=== PATIENT | male | born 1940 | race Caucasian/White ===

== ENCOUNTER → 2017-05-24 | Outpatient (POV) | LOC: OUTPT 00:01 | PROVIDERS: ATTEND Otolaryngology | DX: H91.90 Unspecified hearing loss, unspecified ear (principal) ==

== ENCOUNTER 2018-02-18 20:42 | Emergency (ER) ==
[2018-02-18 20:56] VITALS: BP 94/57; TEMP 98; BMI 23.7
--- NOTE | 2018-02-18 21:33 | CT ---
EXAM: CT of the lumbar spine without contrast. HISTORY: Fall. Low back pain. PROCEDURE: Contiguous axial CT images of the lumbar spine without contrast with coronal and sagittal reformats. FINDINGS: There is normal alignment of the lumbar vertebral bodies and facets. The vertebral body he ights are maintained. There is multilevel disc space narrowing. There is multilevel vacuum disc phe nomenon. There are posterior osteophytes at multiple levels of the lumbar spine resulting in multile cale neural foraminal narrowing. There is multilevel facet arthropathy. There is sacralization of th e left L5 transverse process. Impression: No evidence of fracture. Normal alignment of the lumbar spine with degenerative changes as described. Multilevel neural foraminal narrowing as described.
--- NOTE | 2018-02-18 21:34 | CT ---
EXAM: CT scan of the pelvis without contrast HISTORY: Patient fell, right hip pain TECHNIQUE: Helical imaging of the pelvis was performed without contrast. Axial images and coronal a nd sagittal reconstructions were provided for interpretation. FINDINGS: The femoral head are seen in normal position. The femoral neck appear intact. No acute a bnormalities are seen within the iliac wings. The pubic rami are intact. No acute fractures are see n within the sacrum. There is mild reticulation of the fat seen superficial to the right gluteus musculature seen on axial image number 45 and this may represent contusion injury to the muscle. There is mild swelling of the right gluteus musculature. IMPRESSION: No evidence of acute fracture dislocation seen within the pelvis.
[2018-02-18] MEDS ORDERED: NORCO 5-325 PO STA (21:40)
--- NOTE | 2018-02-18 21:43 | ED.PDOC ---
General ED Provider: Dr. GILL PHILLIPS-ER Chief Complaint: Hip Pain/Injury Stated Complaint: i slipped and fell on my hip Time Seen by Physician: 20:45 Mode of Arrival: Wheelchair Information Source: Patient, Family Exam Limitations: No limitations Primary Care Provider: MARYLOU CALLAHAN Nursing and Triage Documentation Reviewed and Agree: Yes Reviewed sepsis parameters & appropriate labs ordered?: Yes System Inflammatory Response Syndrome: Not Applicable Sepsis Protocol: For patient's 13 years and over: Temp is 96.8 and below OR 101 and greater Pulse >90 BPM Resp >20/minute Acutely Altered Mental Status Are patient's symptoms suggestive of a new infection, such as: -Pneumonia -Skin, Soft Tissue -Endocarditis -UTI -Bone, Joint Infection -Implantable Device -Acute Abdominal Infection -Wound Infection -Meningitis -Blood Stream Catheter Infection -Unknown Musculoskeletal Complaint Exam - Hip/Pelvis Complaint/Exam Location of Pain: Reports: Right, Hip Mechanism of Injury: Reports: Trauma Onset/Duration: today Symptoms Are: Still present Initial Severity: Mild Current Severity: Mild Location: Reports: Discrete Character: Reports: Dull, Aching Aggravating: Reports: Movement, Weight bearing Alleviating: Reports: None Associated Signs and Symptoms: Denies: Swelling, Redness, Bruising, Fever, Weakness, Dizziness, Syncope, Abdominal pain, Knee pain Able to Bear Weight: Yes Pelvis Palpation: Stable Tenderness: Present: Right Range of Motion Limited In: Absent: Flexion, Extension, Abduction, Adduction, Internal rotation, External rotation NV Bundle Intact Distal to Injury: Yes Differential Diagnoses: Contusion, Dislocation, Fracture, Sprain, Strain Review of Systems - Review Of Systems Constitutional: Reports: No symptoms Eyes: Reports: No symptoms Ears, Nose, Mouth, Throat: Reports: No symptoms Respiratory: Reports: No symptoms Cardiac: Reports: No symptoms GI: Reports: No symptoms : Reports: No symptoms Musculoskeletal: Reports: Joint pain, Muscle pain Skin: Reports: No symptoms Neurological: Reports: No symptoms Endocrine: Reports: No symptoms Hematologic/Lymphatic: Reports: No symptoms All Other Systems: Reviewed and Negative Past Medical History - Past Medical History Previously Healthy: Yes Endocrine: Reports: Unknown Cardiovascular: Reports: Unknown Respiratory: Reports: Unknown Hematological: Reports: Unknown Gastrointestinal: Reports: Unknown Genitourinary: Reports: Unknown Neuro/Psych: Reports: Unknown Musculoskeletal: Reports: Unknown Cancer: Reports: Unknown - Surgical History General Surgical History: Reports: Unknown - Family History Family History: Reports: Unknown - Social History Smoking Status: Never smoker Hx Substance Use: No Alcohol Screening: Occasionally - Immunizations Tetanus Shot up to Date: Yes Physical Exam - Physical Exam Appearance: Well-appearing, No pain distress, Well-nourished Pain Distress: Mild Eyes: MARLIN, EOMI, Conjunctiva clear ENT: Ears normal, Nose normal, Oropharynx normal Neck: Supple Respiratory: Airway patent, Breath sounds clear, Breath sounds equal, Respirations nonlabored Cardiovascular: RRR, Pulses normal, No rub, No murmur GI/: Soft, Nontender, No masses, Bowel sounds normal, No Organomegaly Musculoskeletal: Limited ROM Skin: Warm, Dry, Normal color Neurological: Sensation intact, Motor intact, Reflexes intact, Cranial nerves intact, Alert, Oriented Psychiatric: Affect appropriate, Mood appropriate Interpretation - Radiology Interpretation Radiology Interpretation By: Radiologist Radiology Results: Negative Exam Interpreted: CT Scan Critical Care Note - Critical Care Note Total Time (mins): 0 Course - Course Orders, Labs, Meds: Orders Category Date Time Status Hydrocodone Bit/Acetaminophen [Kinsey 5-325] MEDS 02/18/18 21:40 Stat 1 tab PO ONCE STA CT LUMBAR SPINE W/O CONTRAST Stat RADS 02/18/18 20:[address] PELVIS W/O CONTRAST Stat RADS 02/18/18 20:56 Completed Medications Generic Name Dose Route Start Last Admin Trade Name Freq PRN Reason Stop Dose Admin Hydrocodone Bitart/Acetaminophen 1 tab 02/18/18 21:40 Kinsey 5-325 PO 02/18/18 21:41 ONCE STA Vital Signs: Temp Pulse Resp BP Pulse Ox 02/18/18 20:43 98 F 79 18 94/57 L 98 Departure - Departure Time of Disposition: 21:43 Disposition: HOME SELF-CARE Discharge Problem: Hip pain Instructions: Hip Sprain (ED) Condition: Good Pt referred to PMD for follow-up: Yes IPMP verified?: No Additional Instructions: norco 5mg q 6hrs prn pain #10--f/u with dr jerrod cheema Allergies/Adverse Reactions: Allergies No Known Allergies Allergy (Verified 02/18/18 20:55) Home Medications: Ambulatory Orders Carvedilol 12.5 mg PO BID 04/18/13 Enalapril/Hydrochlorothiazide [Enalapril-Hctz 5-12.5 mg Tab] 0.5 tab PO DAILY Finasteride [Proscar] 5 mg PO DAILY 04/18/13 Spironolactone 25 mg PO 3XW 04/18/13 Tamsulosin HCl [Flomax] 0.4 mg PO QPM 04/18/13 Escitalopram Oxalate 10 mg PO BID 02/18/18 Disposition Discussed With: Patient, Family
== END 2018-02-18 22:14 | disposition home or self-care (01) ==
LOC: ED 20:42
DX: M25.551 Pain in right hip (principal); W01.0XXA Fall on same level from slipping, tripping and stumbling without subsequent striking against object, initial encounter
CPT/HCPCS: 99282

== ENCOUNTER 2018-06-01 06:52 | Outpatient (CLI) | payer OTHER | END 2018-06-01 06:53 | disposition home or self-care (01) | LOC: CAR 06:52 | PROVIDERS: ATTEND Internal Medicine | DX: R06.02 Shortness of breath (principal); I42.9 Cardiomyopathy, unspecified | CPT/HCPCS: 93005; 93010 ==

== ENCOUNTER 2023-05-01 05:41 | Inpatient (IN) ==
[2023-05-01] MEDS ORDERED: LASIX IVP ONE (05:52)
--- NOTE | 2023-05-01 06:34 | ED.PDOC ---
General <KRISTINE ANDERSON MD - Last Filed: 05/02/23 07:00> ED Provider: Dr. KRISTINE ANDERSON MD Chief Complaint: Shortness of Air Stated Complaint: shortness of breath Time Seen by Provider: 05/01/23 05:51 Mode of Arrival: Ambulance Information Source: Patient, Residential and EMT Exam Limitations: No limitations Primary Care Provider: MARYLOU MACDONALD MD Nursing and Triage Documentation Reviewed and Agree: Yes Does patient meet sepsis criteria?: No System Inflammatory Response Syndrome: Not Applicable Sepsis Protocol: For patient's 13 years and over: Temp is 96.8 and below OR 101 and greater Pulse >90 BPM Resp >20/minute Acutely Altered Mental Status Are patient's symptoms suggestive of a new infection, such as: -Pneumonia -Skin, Soft Tissue -Endocarditis -UTI -Bone, Joint Infection -Implantable Device -Acute Abdominal Infection -Wound Infection -Meningitis -Blood Stream Catheter Infection -Unknown Respiratory Complaint Exam <KRISTINE ANDERSON MD - Last Filed: 05/02/23 07:00> Shortness of Air Complaint/Exam Onset/Duration: ~1 hour Symptoms Are: Worse Timing: Constant Initial Severity: Moderate Current Severity: Moderate Character: Reports Dyspnea at rest Aggravating: Reports None Alleviating: Reports None Associated Signs and Symptoms: Reports Labored breathing; Denies Cough, Wheezing, Chest pain with cough, Chest pain, Fever, Chills, Diaphoresis, Nasal congestion, Dizziness, Calf pain, Calf swelling, Edema, Rapid breathing or Decreased intake Related History: Reports Similar episode History of Healthcare-Acquired Pneumonia: Lives at shelter Pulmonary Embolism Risk Factors: Reports None Cardiac Risk Factors: Reports None Pseudomonas Risk Factors: Reports None Tuberculosis Risk Factors: Reports Communal living Home Oxygen Use: No Respiratory Distress: Mild Stridor Present: No Tracheal Deviation: No Subcutaneous Emphysema: No Accessory Muscle Use: No Retractions: Not Present Diminished Breath Sounds: No Prolonged Expiratory Phase: No Unable to Speak Full Sentences: No Fatigue: Yes (mild) Leg Swelling: Yes (minimal) Grunting Respirations: No Differential Diagnoses: CHF, Pulmonary Edema, CA, Unstable Angina, Pneumonia, Pneumothorax, SARS, Bronchiolitis, RSV, Bronchospasm, Laryngospasm, Mycoplasma and URI Review of Systems <KRISTINE ANDERSON MD - Last Filed: 05/02/23 07:00> Review Of Systems Constitutional: Reports No symptoms Respiratory: Reports Shortness of Breath All Other Systems: Reviewed and Negative PFSH <KRISTINE ANDERSON MD - Last Filed: 05/02/23 07:00> Medical History (Updated 05/01/23 @ 14:02 by TORY MARIO) Atrial fibrillation I48.91 - Unspecified atrial fibrillation (ICD-10) Cataract H26.9 - Unspecified cataract (ICD-10) CKD (chronic kidney disease) stage 3, GFR 30-59 ml/min N18.30 - Chronic kidney disease, stage 3 unspecified (ICD-10) COPD (chronic obstructive pulmonary disease) J44.9 - Chronic obstructive pulmonary disease, unspecified (ICD-10) Dilated cardiomyopathy I42.0 - Dilated cardiomyopathy (ICD-10) Gait abnormality R26.9 - Unspecified abnormalities of gait and mobility (ICD-10) GERD (gastroesophageal reflux disease) K21.9 - Gastro-esophageal reflux disease without esophagitis (ICD-10) Hearing problem H91.90 - Unspecified hearing loss, unspecified ear (ICD-10) Heartburn R12 - Heartburn (ICD-10) Hyperlipidemia E78.5 - Hyperlipidemia, unspecified (ICD-10) Impairment of balance R26.89 - Other abnormalities of gait and mobility (ICD-10) 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 - Unspecified sequelae of unspecified cerebrovascular disease (ICD- 10) Pacemaker Z95.0 - Presence of cardiac pacemaker (ICD-10) Parkinson disease G20 - Parkinson's disease (ICD-10) Presence of Watchman left atrial appendage closure device Z95.818 - Presence of other cardiac implants and grafts (ICD-10) Sensorineural hearing loss (SNHL) H90.5 - Unspecified sensorineural hearing loss (ICD-10) Family History Mother Depression Cardiac disease FATHER Cancer Social History Smoking and tobacco status: Never smoker Passive smoking exposure: No Second hand smoke exposure: No Alcohol intake: current Alcohol intake frequency: holidays/special occasions only Alcohol type: beer Substance use type: does not use Special hazel needs: No Agree to transfusion: Yes Adopted: No Caregiver/support person: No Foster care: No Household members: spouse Housing: house Marital status: M Lives independently: Yes Daycare: no daycare Number of children: 4 Financial difficulty paying for basics: not very hard skilled nursing: No Current occupational status: retired History of recent travel: No Current gender identity: male Seatbelt use: always Helmet use: No Drives intoxicated or rides with intoxicated 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 Water heater temperature set < 120 degrees: Yes Working smoke detector in home: Yes Fire extinguisher in home: Yes Carbon monoxide detector in home: Yes Physical Exam <KRISTINE ANDERSON MD - Last Filed: 05/02/23 07:00> Physical Exam Appearance: Reports Ill-appearing and Obese Ill-appearing: Moderate Pain Distress: Moderate (Nursing staff was having difficulty placing Saha when I interviewed patient.) Eyes: Reports MARLIN, EOMI and Conjunctiva clear ENT: Reports Ears normal and Nose normal Neck: Nonsupple (normal age-appropriate external appearance) Respiratory: Reports Airway patent and Breath sounds equal Cardiovascular: Reports RRR GI/: Reports Soft, Nontender and Bowel sounds normal Musculoskeletal: Reports Other (unable to assess) Skin: Reports Warm, Dry and Normal color Neurological: Reports Sensation intact, Motor intact, Cranial nerves intact, Alert and Other (unable to assess mental status) Psychiatric: Reports Affect appropriate and Anxious <ROSANGELA MIRZA DO - Last Filed: 05/01/23 11:59> EKG Interpretation EKG Interpretation By: ED Physician Time of EKG #1: 07:00 Rate: Normal Rhythm: Other (afib) Interpretation: afib, RVH, qt prolonged form nonspecific interventricular delayy, no stemi Radiology Interpretation Radiology Interpretation By: ED Physician Radiology Results: Positive Exam Interpreted: CXR Xray Comments: cephalization, small left pleural effuiosn, no pneumothorax Critical Care Note <KRISTINE ANDERSON MD - Last Filed: 05/02/23 07:00> Critical Care Note Total Critical Care Time (mins): 0 Course <KRISTINE ANDERSON MD - Last Filed: 05/02/23 07:00> Course 05/02/23 04:57 05/02/23 04:57 Orders, Labs, Meds: Lab Review 05/01/23 05/01/23 05/01/23 05:56 06:31 06:37 WBC 11.93 H RBC 3.61 L Hgb 10.5 L Hct 33.1 L MCV 91.7 MCH 29.1 MCHC 31.7 L RDW Coeff of Ade 14.0 Plt Count 391 Immature Gran % (Auto) 0.7 Neut % (Auto) 83.6 H Lymph % (Auto) 8.6 L [place] % (Auto) 6.5 Eos % (Auto) 0.3 Baso % (Auto) 0.3 Neut # (Auto) 10.0 H Lymph # (Auto) 1.0 [place] # (Auto) 0.8 Eos # (Auto) 0.0 Baso # (Auto) 0.0 Immature Gran # (Auto) 0.1 Puncture Site Lb Base Excess 3.7 H O2 Saturation 98.4 H ABG pH 7.57 H* ABG pCO2 28.0 L ABG pO2 97.0 ABG HCO3 25.7 ABG Total CO2 26.6 H Ja Test Pos Hemoglobin 1.2 Oxyhemoglobin 95.5 Carboxyhemoglobin 2.1 H Total Hemoglobin 10.8 L O2 Delivery Device Cannula Oxygen Liter Flow 2.00 Sodium 138.3 Potassium 3.26 L Chloride 107.5 H Carbon Dioxide 27.7 Anion Gap 6.36 BUN 15.7 Creatinine 1.23 H Estimated GFR (MDRD) 56.00 BUN/Creatinine Ratio 12.76 Glucose 125.0 H Lactic Acid 1.03 Calcium 8.31 L Magnesium 2.03 Total Bilirubin 0.70 AST 81.2 H ALT 82.4 H Alkaline Phosphatase 70.8 Total Creatine Kinase 162.3 CK-MB (CK-2) 2.760 H CK-MB (CK-2) % 1.7000 Troponin I 0.076 NT-Pro-B Natriuret Pep 59706 H Total Protein 6.33 Albumin 3.41 L Globulin 2.92 Albumin/Globulin Ratio 1.16 Procalcitonin < 0.05 TSH 4.210 Free T4 1.95 Urine Color Yellow Urine Clarity Clear Urine pH 5.5 Ur Specific [place] 1.025 Urine Protein 1+ H Urine Glucose (UA) Negative Urine Ketones 1+ H Urine Blood 2+ H Urine Nitrite Negative Urine Bilirubin Negative Urine Urobilinogen 1.0 H Ur Leukocyte Esterase Negative Urine Microscopic RBC 10-20 Urine Microscopic WBC 0-2 Ur Squamous Epith Cells Not present Ur Renal Epithelial Cell 0-2 Hyaline Casts 0-2 SARS CoV-2 RNA Rapid PEDRO 05/01/23 06:40 WBC RBC Hgb Hct MCV MCH MCHC RDW Coeff of Ade Plt Count Immature Gran % (Auto) Neut % (Auto) Lymph % (Auto) [place] % (Auto) Eos % (Auto) Baso % (Auto) Neut # (Auto) Lymph # (Auto) [place] # (Auto) Eos # (Auto) Baso # (Auto) Immature Gran # (Auto) Puncture Site Base Excess O2 Saturation ABG pH ABG pCO2 ABG pO2 ABG HCO3 ABG Total CO2 Ja Test Hemoglobin Oxyhemoglobin Carboxyhemoglobin Total Hemoglobin O2 Delivery Device Oxygen Liter Flow Sodium Potassium Chloride Carbon Dioxide Anion Gap BUN Creatinine Estimated GFR (MDRD) BUN/Creatinine Ratio Glucose Lactic Acid Calcium Magnesium Total Bilirubin AST ALT Alkaline Phosphatase Total Creatine Kinase CK-MB (CK-2) CK-MB (CK-2) % Troponin I NT-Pro-B Natriuret Pep Total Protein Albumin Globulin Albumin/Globulin Ratio Procalcitonin TSH Free T4 Urine Color Urine Clarity Urine pH Ur Specific [place] Urine Protein Urine Glucose (UA) Urine Ketones Urine Blood Urine Nitrite Urine Bilirubin Urine Urobilinogen Ur Leukocyte Esterase Urine Microscopic RBC Urine Microscopic WBC Ur Squamous Epith Cells Ur Renal Epithelial Cell Hyaline Casts SARS CoV-2 RNA Rapid PEDRO Negative Orders Category Date Time Status ABG DRAW REQUEST Stat CARDIO 05/01/23 05:51 Completed EKG-(ED ONLY) Stat CARDIO 05/01/23 05:53 Completed Saha [CATHETER INSERTION AND CARE] Q8HR CARE 05/01/23 05:51 Active REMINDER: Ask MD to d/c saha DAILY CARE 05/01/23 05:51 Active Saline Lock [ED IV/MEDIPORT/POWERPORT] .ONCE EMERGENCY 05/01/23 05:53 Active ABG COOX Stat LAB 05/01/23 05:56 Completed CBC W/ AUTO DIFF Stat LAB 05/01/23 06:37 Completed CK [CREATINE KINASE] Stat LAB 05/01/23 06:37 Completed COMPREHENSIVE METABOLIC PANEL Stat LAB 05/01/23 06:37 Completed COVID [SARS COV-2 RNA RAPID PEDRO] Stat LAB 05/01/23 06:40 Completed FREE T4 (FREE THYROXINE) Stat LAB 05/01/23 06:37 Completed LACTIC ACID Stat LAB 05/01/23 06:37 Completed MAGNESIUM Stat LAB 05/01/23 06:37 Completed PROBNP ED [NT-PROBNP(ED)] Stat LAB 05/01/23 06:37 Completed PROCALCITONIN Stat LAB 05/01/23 06:37 Completed THYROID STIMULATING HORMONE Stat LAB 05/01/23 06:37 Completed TROPONIN I Stat LAB 05/01/23 06:37 Completed UA [URINALYSIS C & S IF INDICATED] Stat LAB 05/01/23 06:31 Completed 0.9 % Sodium Chloride [Saline Flush] Meds 05/01/23 05:52 Discontinued 1 syr IVF PRN PRN Furosemide [Lasix] Meds 05/01/23 07:57 Discontinued 40 mg .ROUTE .STK-MED ONE Furosemide [Lasix] Meds 05/01/23 05:52 Discontinued 40 mg IVP ONCE ONE CHEST, 1V AP ONLY Stat RADS 05/01/23 05:53 Completed Medications Generic Name Dose Route Start Last Admin Trade Name Freq PRN Reason Stop Dose Admin Acetaminophen 650 mg 05/01/23 10:29 Acetaminophen 325 Mg Tablet PO Q4H PRN Mild Pain Albuterol/Ipratropium 3 ml 05/01/23 14:00 05/02/23 05:10 Ipratropium/Albuterol Vial.Neb NEB 3 ml RTQ4H RADHA Administration Alprazolam 0.25 mg 05/01/23 14:02 05/01/23 18:01 Alprazolam 0.25 Mg Tablet PO 0.25 mg DAILY PRN Administration Anxiety Atorvastatin Calcium 10 mg 05/02/23 09:00 Atorvastatin Calcium 10 Mg Tablet PO DAILY RADHA Cholecalciferol 2,000 unit 05/02/23 09:00 Cholecalciferol (Vitamin D3) 1,000 Unit (25 Mcg) Tablet PO DAILY RADHA Escitalopram Oxalate 10 mg 05/02/23 09:00 Escitalopram Oxalate 10 Mg Tablet PO DAILY RADHA Finasteride 5 mg 05/02/23 09:00 Finasteride 5 Mg Tablet PO DAILY RADHA Furosemide 40 mg 05/01/23 17:00 05/02/23 05:45 Furosemide Inj 40 Mg/4 Ml Vial IVP 40 mg BIDAC RADHA Administration Potassium Chloride 40 meq in 200 mls @ 50 mls/hr 05/02/23 05:50 05/02/23 06:08 Potassium Chloride 20 Meq/100 Ml Premix IV 05/02/23 09:49 50 mls/hr ONCE ONE Administration Metoprolol Succinate 12.5 mg 05/02/23 09:00 Metoprolol Succinate 25 Mg Tab.Er.24h PO DAILY RADHA Midodrine 5 mg 05/01/23 15:00 05/01/23 20:13 Midodrine Hcl 5 Mg Tablet PO 5 mg TID RADHA Administration Non-Formulary Medication 500 mcg 05/02/23 09:00 Cyanocobalamin (Vitamin B-12) [Vitamin B-12] PO DAILY RADHA Pantoprazole Sodium 40 mg 05/02/23 06:30 05/02/23 05:45 Pantoprazole Sodium 40 Mg Tablet.Dr PO 40 mg QDAC RADHA Administration Pramipexole Dihydrochloride 0.375 mg 05/01/23 15:00 05/01/23 20:13 Pramipexole Di-Hcl 0.25 Mg Tablet PO 0.375 mg TID RADHA Administration Sacubitril/Valsartan 0.5 each 05/01/23 21:00 05/01/23 20:12 Sacubitril/Valsartan 1 Each Tablet PO 0.5 each BEDTIME RADHA Administration Sodium Chloride 1 syr 05/01/23 21:00 05/02/23 05:45 0.9% Sodium Chloride 10 Ml Disp.Syrin IVF 1 syr Q8HR RADHA Administration Tamsulosin HCl 0.4 mg 05/01/23 17:00 05/01/23 16:46 Tamsulosin Hcl 0.4 Mg Cap.Er.24h PO 0.4 mg QPM RADHA Administration Discontinued Medications Generic Name Dose Route Start Last Admin Trade Name Freq PRN Reason Stop Dose Admin Furosemide 40 mg 05/01/23 05:52 05/01/23 07:59 Furosemide Inj 40 Mg/4 Ml Vial IVP 05/01/23 05:53 40 mg ONCE ONE Administration Potassium Chloride 40 meq 05/02/23 05:52 05/02/23 06:05 Potassium Chloride 20 Meq Tab PO 05/02/23 05:53 40 meq ONCE ONE Administration Sodium Chloride 1 syr 05/01/23 05:52 05/01/23 07:59 0.9% Sodium Chloride 10 Ml Disp.Syrin IVF 1 syr PRN PRN Administration To flush IV Vital Signs: Temp Pulse Resp BP Pulse Ox 05/01/23 05:48 97.7 F 83 20 131/74 95 <ROSANGELA MIRZA, DO - Last Filed: 05/01/23 11:59> Course Orders, Labs, Meds: Lab Review 05/01/23 05/01/23 05/01/23 05:56 06:31 06:37 WBC 11.93 H RBC 3.61 L Hgb 10.5 L Hct 33.1 L MCV 91.7 MCH 29.1 MCHC 31.7 L RDW Coeff of Ade 14.0 Plt Count 391 Immature Gran % (Auto) 0.7 Neut % (Auto) 83.6 H Lymph % (Auto) 8.6 L [place] % (Auto) 6.5 Eos % (Auto) 0.3 Baso % (Auto) 0.3 Neut # (Auto) 10.0 H Lymph # (Auto) 1.0 [place] # (Auto) 0.8 Eos # (Auto) 0.0 Baso # (Auto) 0.0 Immature Gran # (Auto) 0.1 Puncture Site Lb Base Excess 3.7 H O2 Saturation 98.4 H ABG pH 7.57 H* ABG pCO2 28.0 L ABG pO2 97.0 ABG HCO3 25.7 ABG Total CO2 26.6 H Ja Test Pos Hemoglobin 1.2 Oxyhemoglobin 95.5 Carboxyhemoglobin 2.1 H Total Hemoglobin 10.8 L O2 Delivery Device Cannula Oxygen Liter Flow 2.00 Sodium 138.3 Potassium 3.26 L Chloride 107.5 H Carbon Dioxide 27.7 Anion Gap 6.36 BUN 15.7 Creatinine 1.23 H Estimated GFR (MDRD) 56.00 BUN/Creatinine Ratio 12.76 Glucose 125.0 H Lactic Acid 1.03 Calcium 8.31 L Magnesium 2.03 Total Bilirubin 0.70 AST 81.2 H ALT 82.4 H Alkaline Phosphatase 70.8 Total Creatine Kinase 162.3 CK-MB (CK-2) 2.760 H CK-MB (CK-2) % 1.7000 Troponin I 0.076 NT-Pro-B Natriuret Pep 05678 H Total Protein 6.33 Albumin 3.41 L Globulin 2.92 Albumin/Globulin Ratio 1.16 Procalcitonin < 0.05 TSH 4.210 Free T4 1.95 Urine Color Yellow Urine Clarity Clear Urine pH 5.5 Ur Specific [place] 1.025 Urine Protein 1+ H Urine Glucose (UA) Negative Urine Ketones 1+ H Urine Blood 2+ H Urine Nitrite Negative Urine Bilirubin Negative Urine Urobilinogen 1.0 H Ur Leukocyte Esterase Negative Urine Microscopic RBC 10-20 Urine Microscopic WBC 0-2 Ur Squamous Epith Cells Not present Ur Renal Epithelial Cell 0-2 Hyaline Casts 0-2 SARS CoV-2 RNA Rapid PEDRO 05/01/23 06:40 WBC RBC Hgb Hct MCV MCH MCHC RDW Coeff of Ade Plt Count Immature Gran % (Auto) Neut % (Auto) Lymph % (Auto) [place] % (Auto) Eos % (Auto) Baso % (Auto) Neut # (Auto) Lymph # (Auto) [place] # (Auto) Eos # (Auto) Baso # (Auto) Immature Gran # (Auto) Puncture Site Base Excess O2 Saturation ABG pH ABG pCO2 ABG pO2 ABG HCO3 ABG Total CO2 Ja Test Hemoglobin Oxyhemoglobin Carboxyhemoglobin Total Hemoglobin O2 Delivery Device Oxygen Liter Flow Sodium Potassium Chloride Carbon Dioxide Anion Gap BUN Creatinine Estimated GFR (MDRD) BUN/Creatinine Ratio Glucose Lactic Acid Calcium Magnesium Total Bilirubin AST ALT Alkaline Phosphatase Total Creatine Kinase CK-MB (CK-2) CK-MB (CK-2) % Troponin I NT-Pro-B Natriuret Pep Total Protein Albumin Globulin Albumin/Globulin Ratio Procalcitonin TSH Free T4 Urine Color Urine Clarity Urine pH Ur Specific [place] Urine Protein Urine Glucose (UA) Urine Ketones Urine Blood Urine Nitrite Urine Bilirubin Urine Urobilinogen Ur Leukocyte Esterase Urine Microscopic RBC Urine Microscopic WBC Ur Squamous Epith Cells Ur Renal Epithelial Cell Hyaline Casts SARS CoV-2 RNA Rapid PEDRO Negative Orders Category Date Time Status ABG DRAW REQUEST Stat CARDIO 05/01/23 05:51 Completed EKG-(ED ONLY) Stat CARDIO 05/01/23 05:53 Completed Saha [CATHETER INSERTION AND CARE] Q8HR CARE 05/01/23 05:51 Active REMINDER: Ask MD to d/c saha DAILY CARE 05/01/23 05:51 Active Saline Lock [ED IV/MEDIPORT/POWERPORT] .ONCE EMERGENCY 05/01/23 05:53 Active ABG COOX Stat LAB 05/01/23 05:56 Completed CBC W/ AUTO DIFF Stat LAB 05/01/23 06:37 Completed CK [CREATINE KINASE] Stat LAB 05/01/23 06:37 Completed COMPREHENSIVE METABOLIC PANEL Stat LAB 05/01/23 06:37 Completed COVID [SARS COV-2 RNA RAPID PEDRO] Stat LAB 05/01/23 06:40 Completed FREE T4 (FREE THYROXINE) Stat LAB 05/01/23 06:37 Completed LACTIC ACID Stat LAB 05/01/23 06:37 Completed MAGNESIUM Stat LAB 05/01/23 06:37 Completed PROBNP ED [NT-PROBNP(ED)] Stat LAB 05/01/23 06:37 Completed PROCALCITONIN Stat LAB 05/01/23 06:37 Completed THYROID STIMULATING HORMONE Stat LAB 05/01/23 06:37 Completed TROPONIN I Stat LAB 05/01/23 06:37 Completed UA [URINALYSIS C & S IF INDICATED] Stat LAB 05/01/23 06:31 Completed 0.9 % Sodium Chloride [Saline Flush] Meds 05/01/23 05:52 Discontinued 1 syr IVF PRN PRN Furosemide [Lasix] Meds 05/01/23 07:57 Discontinued 40 mg .ROUTE .STK-MED ONE Furosemide [Lasix] Meds 05/01/23 05:52 Discontinued 40 mg IVP ONCE ONE CHEST, 1V AP ONLY Stat RADS 05/01/23 05:53 Completed Medications Generic Name Dose Route Start Last Admin Trade Name Freq PRN Reason Stop Dose Admin Acetaminophen 650 mg 05/01/23 10:29 Acetaminophen 325 Mg Tablet PO Q4H PRN Mild Pain Albuterol/Ipratropium 3 ml 05/01/23 14:00 05/02/23 05:10 Ipratropium/Albuterol Vial.Neb NEB 3 ml RTQ4H RADHA Administration Alprazolam 0.25 mg 05/01/23 14:02 05/01/23 18:01 Alprazolam 0.25 Mg Tablet PO 0.25 mg DAILY PRN Administration Anxiety Atorvastatin Calcium 10 mg 05/02/23 09:00 Atorvastatin Calcium 10 Mg Tablet PO DAILY RADHA Cholecalciferol 2,000 unit 05/02/23 09:00 Cholecalciferol (Vitamin D3) 1,000 Unit (25 Mcg) Tablet PO DAILY RADHA Escitalopram Oxalate 10 mg 05/02/23 09:00 Escitalopram Oxalate 10 Mg Tablet PO DAILY RADHA Finasteride 5 mg 05/02/23 09:00 Finasteride 5 Mg Tablet PO DAILY RADHA Furosemide 40 mg 05/01/23 17:00 05/02/23 05:45 Furosemide Inj 40 Mg/4 Ml Vial IVP 40 mg BIDAC RADHA Administration Potassium Chloride 40 meq in 200 mls @ 50 mls/hr 05/02/23 05:50 05/02/23 06:08 Potassium Chloride 20 Meq/100 Ml Premix IV 05/02/23 09:49 50 mls/hr ONCE ONE Administration Metoprolol Succinate 12.5 mg 05/02/23 09:00 Metoprolol Succinate 25 Mg Tab.Er.24h PO DAILY RADHA Midodrine 5 mg 05/01/23 15:00 05/01/23 20:13 Midodrine Hcl 5 Mg Tablet PO 5 mg TID RADHA Administration Non-Formulary Medication 500 mcg 05/02/23 09:00 Cyanocobalamin (Vitamin B-12) [Vitamin B-12] PO DAILY RADHA Pantoprazole Sodium 40 mg 05/02/23 06:30 05/02/23 05:45 Pantoprazole Sodium 40 Mg Tablet.Dr PO 40 mg QDAC RADHA Administration Pramipexole Dihydrochloride 0.375 mg 05/01/23 15:00 05/01/23 20:13 Pramipexole Di-Hcl 0.25 Mg Tablet PO 0.375 mg TID RADHA Administration Sacubitril/Valsartan 0.5 each 05/01/23 21:00 05/01/23 20:12 Sacubitril/Valsartan 1 Each Tablet PO 0.5 each BEDTIME RADHA Administration Sodium Chloride 1 syr 05/01/23 21:00 05/02/23 05:45 0.9% Sodium Chloride 10 Ml Disp.Syrin IVF 1 syr Q8HR RADHA Administration Tamsulosin HCl 0.4 mg 05/01/23 17:00 05/01/23 16:46 Tamsulosin Hcl 0.4 Mg Cap.Er.24h PO 0.4 mg QPM RADHA Administration Discontinued Medications Generic Name Dose Route Start Last Admin Trade Name Freq PRN Reason Stop Dose Admin Furosemide 40 mg 05/01/23 05:52 05/01/23 07:59 Furosemide Inj 40 Mg/4 Ml Vial IVP 05/01/23 05:53 40 mg ONCE ONE Administration Potassium Chloride 40 meq 05/02/23 05:52 05/02/23 06:05 Potassium Chloride 20 Meq Tab PO 05/02/23 05:53 40 meq ONCE ONE Administration Sodium Chloride 1 syr 05/01/23 05:52 05/01/23 07:59 0.9% Sodium Chloride 10 Ml Disp.Syrin IVF 1 syr PRN PRN Administration To flush IV Vital Signs: Temp Pulse Resp BP Pulse Ox 05/01/23 05:48 97.7 F 83 20 131/74 95 I assumed care from Dr. Anderson, he would like Mr Morales admitted for CHF exacerbation and hypoxia -84% at the SNF 95% on 2 L nc Pat[place]n full code Saha placed, work up and exam commensurate with CHF exacerbation Will page Dr. Macdonald for admission MDM: Patient is a 82 yo M here for SOB from [facility] Patient is full code Exam concerning for fluid overloaded state I assumed care from Dr. Marquez- pending CXR he wanted patient admitted for CHF exacerbation Consults to Dr. Torres Melgar. He recommends hospitalist admission he will consult and read echocardiogram 3+ labs and [address] Anderson and myself WDX: CHF exacerbation, hypoxia, L pleural effusion, urinary retention acute condition moderate complexity DDX: I considered stemi, septic shock, pneumothorax but these were not found SDOH: Patient will improve with admission, fluid restriction and diuresis-gentle Will admit to medicine get am echo, family and hospitalist team amenable to plan Family and patient amenable to plan All questions answered we discussed care plan and all findings [facility] error I cannot add echo Dr. Macdonald asked for, Marylou is working on this ticket. Discharge Plan Discharge Patient Disposition: PLACED OBSERVATION Discharge Problem: Acute exacerbation of CHF (congestive heart failure), Leukocytosis, Hypoxia, Acute on chronic urinary retention, Pleural effusion on left Did you review [place] QUALITY REP for ALL controlled substances?: Not Applicable ED Provider: ROSANGELA MIRZA <KRISTINE ANDERSON MD - Last Filed: 05/02/23 07:00> Physician Progress Note: []
[2023-05-01 06:38] LABS: ABG O2 HGB 95.5 % (95-100); BEecf 3.7 (-2.0-3.0); COHb 2.1 (0.5-1.5); HCO3 25.7 (21-28); MetHb 1.2 (0-1.5); TCO2 26.6 (19-24); sO2 98.4 % (94-98); tHb 10.8 g/dl (11.7-17.4)
[2023-05-01 06:42] LABS: ABG PH 7.57 (7.35-7.45)
[2023-05-01 06:42] LABS: BASOPHILS % (AUTO) 0.3 % (0.0-3.0); EOSINOPHILS % (AUTO) 0.3 % (0.0-7.0); HEMATOCRIT 33.1 % (42.0-52.0); HEMOGLOBIN 10.5 g/dl (14.0-18.0); IMMATURE GRANULOCYTE # (AUTO) 0.1 (0.0-1.0); IMMATURE GRANULOCYTE % (AUTO) 0.7 % (0.0-5.0); LYMPHOCYTES % (AUTO) 8.6 (10.0-50.0); MEAN CORPUSCULAR HEMOGLOBIN 29.1 pg (27.0-31.0); MEAN CORPUSCULAR HGB CONC 31.7 (31.8-35.4); MEAN CORPUSCULAR VOLUME 91.7 fl (80.0-94.0); MONOCYTES # (AUTO) 0.8 K/uL (0.4-2.0); MONOCYTES % (AUTO) 6.5 (0-10); NEUTROPHILS % (AUTO) 83.6 % (42.2-75.2); PLATELET COUNT 391 10^3/uL (140-440); RED BLOOD COUNT 3.61 10^6/ul (4.70-6.10); WHITE BLOOD COUNT 11.93 K/ul (4.2-10.2)
[2023-05-01 06:55] LABS: ALANINE AMINOTRANSFERASE 82.4 U/L (0-50); ALBUMIN 3.41 g/dL (3.5-5.0); ALKALINE PHOSPHATASE 70.8 U/L (56-119); ASPARTATE AMINO TRANSFERASE 81.2 U/L (17-59); BILIRUBIN,TOTAL 0.7 mg/dL (0.2-1.3); BLOOD UREA NITROGEN 15.7 mg/dL (9-20); CALCIUM 8.31 mg/dL (8.4-10.2); CARBON DIOXIDE 27.7 mmol/L (22-30.0); CHLORIDE 107.5 mmol/L (98-107); CREATINE KINASE 162.3 U/L (55-170); CREATININE 1.23 mg/dL (0.60-1.10); MAGNESIUM 2.03 mg/dL (1.6-2.3); POTASSIUM 3.26 mmol/L (3.5-5.1); SODIUM 138.3 mmol/L (134.5-145); TOTAL PROTEIN 6.33 g/dL (6.3-8.2)
[2023-05-01 07:06] LABS: TROPONIN I 0.076 ng/ml (0.0000-0.120)
[2023-05-01 07:12] LABS: CREATINE KINASE MB 2.76 ng/ml (0.0-2.38)
--- NOTE | 2023-05-01 07:13 | DI ---
EXAM: FRONTAL VIEW OF THE CHEST. HISTORY: Shortness of breath. COMPARISON: Chest radiograph 04/23/2023. FINDINGS: Stable biventricular pacer/ICD. Normal heart size. Atherosclerotic calcifications of the aorta. Band-like opacities at the left lung base. Mild blunting of the left costophrenic sulcus. No acute osseous abnormality. IMPRESSION: Small left pleural effusion versus scarring at the costophrenic sulcus. Mild left basilar atelectasis.
[2023-05-01 07:17] LABS: BILIRUBIN,URINE Negative (NEGATIVE); CLARITY,URINE Clear (CLEAR); COLOR,URINE Yellow (YELLOW); GLUCOSE, URINE (UA) Negative (NEGATIVE); KETONES,URINE 1+ (NEGATIVE); LEUKOCYTE ESTERASE ,URINE Negative (NEGATIVE); NITRITE,URINE Negative (NEGATIVE); PH,URINE 5.5 (5-9); PROTEIN,URINE 1+ (NEGATIVE); URINE, BLOOD 2+ (NEGATIVE)
[2023-05-01 07:25] LABS: THYROID STIMULATING HORMONE 4.21 uIU/L (0.465-4.68)
[2023-05-01 07:29] LABS: RENAL EPITHELIAL CELLS,URINE 0-2 (NOT PRESENT); SQUAMOUS EPITHELIAL CELL,UR NOT PRESENT (0-5); URINE WBC, MICROSCOPIC 0-2 (0-2)
[2023-05-01 07:30] LABS: HYALINE CASTS, URINE 0-2 (NOT PRESENT)
[2023-05-01 07:33] LABS: SARS COV-2 RNA RAPID NAAT NEGATIVE (NEGATIVE)
[2023-05-01] MEDS ORDERED: LASIX ONE (07:57)
[2023-05-01] MEDS ORDERED: TYLENOL PO PRN (10:29)
[2023-05-01 11:10] VITALS: BMI 26.5
--- NOTE | 2023-05-01 11:52 | PCM ---
Date of Service Date Seen by Provider: 05/01/23 Time Seen by Provider: 11:00 Admit Day/Time Admission Date: 05/01/23 Reason for Admission Chief Complaint: CHF EXACERBATION, HYPOXIA Hospital Provider Hospital Provider: TORY MARIO, [facility] [place] [facility] Physician Primary Care Physician: MARYLOU MACDONALD MD History of Present Illness History of Present Illness: 82 yo male from local long-term presented to the ER with complaints of shortness of breath over the last couple days. Patient has a history of CHF and A fib. In ER, he was found to be hypoxic into the upper 80s and is requiring 2- 3L NC at this time. He does not wear oxygen normally. Family reports that on 04/14 patient was seen here and transferred to [facility] for cholecystitis. While he was there he had a biliary drain placed for treatment of cholecystitis due to patient not being a surgical candidate for cholecystectomy. Drain was removed 1- 2 weeks ago. Patient denies any chest pain, back pain, abdominal pain, fever, chills, nausea, vomiting or diarrhea. Patient's BNP was found to be greater than 13,000 and he was given 40 mg of Lasix IV push. Upon arrival to the MedSurg unit, his Mccoy bag had 1800 mL present. Case Discussed With Case Discussed With: Patient's case was discussed with the ER Physicians, Dr. 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 - Unspecified sequelae of unspecified cerebrovascular disease (ICD- 10) Pacemaker Z95.0 - Presence of cardiac pacemaker (ICD-10) Parkinson disease G20 - Parkinson's disease (ICD-10) Presence of Watchman left atrial appendage closure device Z95.818 - Presence of other cardiac implants and grafts (ICD-10) Sensorineural hearing loss (SNHL) H90.5 - Unspecified sensorineural hearing loss (ICD-10) Family History Mother Depression Cardiac disease FATHER Cancer Social History Smoking and tobacco status: Never smoker Passive smoking exposure: No Second hand smoke exposure: No Alcohol intake: current Alcohol intake frequency: holidays/special occasions only Alcohol type: beer Substance use type: does not use Special hazel needs: No Agree to transfusion: Yes Adopted: No Caregiver/support person: No Foster care: No Household members: spouse Housing: house Marital status: M Lives independently: Yes Daycare: no daycare Number of children: 4 Financial difficulty paying for basics: not very hard retirement: No Current occupational status: retired History of recent travel: No Current gender identity: male Seatbelt use: always Helmet use: No Drives intoxicated or rides with intoxicated line driver: No Water heater temperature set < 120 degrees: Yes Working smoke detector in home: Yes Fire extinguisher in home: Yes Carbon monoxide detector in home: Yes Allergies Allergies Allergy/AdvReac Type Severity Reaction Status Date / Time No Known Allergies Allergy Verified 05/01/23 06:00 Current Medications Home Medications tamsulosin 0.4 mg capsule 0.4 mg PO QPM 04/18/13 [History Confirmed 05/01/23 Last Taken 04/23/13] sacubitril 24 mg-valsartan 26 mg tablet (Entresto) 0.5 tab PO BEDTIME 11/27/20 [History Confirmed 05/01/23 Last Taken Unknown] tramadol 50 mg tablet 50 mg PO Q6H PRN Pain 01/10/22 [History Confirmed 05/01/23 Last Taken Unknown] cholecalciferol (vitamin D3) 25 mcg (1,000 unit) tablet (Vitamin D3) 50 mcg PO DAILY 04/13/22 [History Confirmed 05/01/23 Last Taken Unknown] cyanocobalamin (vitamin B-12) 500 mcg tablet (Vitamin B-12) 500 mcg PO DAILY 04/13/22 [History Confirmed 05/01/23 Last Taken Unknown] cdptvzxhnaax-ybkvduzz-xptdvy tablet 1 tab PO DAILY 04/13/22 [History Confirmed 05/01/23 Last Taken Unknown] pramipexole 0.125 mg tablet (Mirapex) 0.25 mg PO TID 01/06/23 [History Confirmed 05/01/23 Last Taken Unknown] finasteride 5 mg tablet See Rx Instructions .Route .COMPLEX #90 tabs 01/09/23 [Rx Confirmed 05/01/23 Last Taken Unknown] escitalopram oxalate 10 mg tablet See Rx Instructions .Route .COMPLEX #90 tabs 01/26/23 [Rx Confirmed 05/01/23 Last Taken Unknown] alprazolam 0.25 mg tablet 0.25 mg PO DAILY PRN anxiety 02/20/23 [History Confirmed 05/01/23 Last Taken Unknown] midodrine 5 mg tablet 5 mg PO TID 02/20/23 [History Confirmed 05/01/23 Last Taken Unknown] ondansetron 4 mg disintegrating tablet 4 mg PO Q8H PRN nausea and vomiting 02/20/23 [History Confirmed 05/01/23 Last Taken Unknown] cyanocobalamin (vitamin B-12) 1,000 mcg/mL injection solution See Rx Instructions .Route .COMPLEX #100 mL 02/23/23 [Rx Confirmed 05/01/23 Last Taken Unknown] metoprolol succinate 25 mg tablet,extended release 24 hr See Rx Instructions .Route .COMPLEX #45 tabs 02/24/23 [Rx Confirmed 05/01/23 Last Taken Unknown] pantoprazole 40 mg tablet,delayed release 40 mg PO DAILY #90 tabs 03/30/23 [Rx Confirmed 05/01/23 Last Taken Unknown] atorvastatin 10 mg tablet 10 mg PO DAILY #90 tabs 04/11/23 [Rx Confirmed 05/01/23 Last Taken Unknown] furosemide 20 mg tablet (Lasix) 20 mg PO DAILY FLUID RETENTION #90 tabs 04/11/23 [Rx Confirmed 05/01/23 Last Taken Unknown] Home Acetaminophen (Acetaminophen 325 Mg Tablet) 650 mg PO Q4H PRN PRN Reason: Mild Pain Albuterol/Ipratropium (Ipratropium/Albuterol Vial.Neb) 3 ml NEB RTQ4H RADHA Furosemide (Furosemide Inj 40 Mg/4 Ml Vial) 40 mg IVP BIDAC RADHA Sodium Chloride (0.9% Sodium Chloride 10 Ml Disp.Syrin) 1 syr IVF PRN PRN PRN Reason: To flush IV Last Admin: 05/01/23 07:59 Dose: 1 syr Discontinued Medications Furosemide (Furosemide Inj 40 Mg/4 Ml Vial) 40 mg IVP ONCE ONE Stop: 05/01/23 05:53 Last Admin: 05/01/23 07:59 Dose: 40 mg Review of Systems Constitutional: Reports Weakness Head: Reports Normocephalic and Atraumatic Eyes: Reports No symptoms Ears: Reports No symptoms Nose: Reports No symptoms Mouth: Reports No symptoms Throat: Reports No symptoms Cardiovascular: Reports Edema (abdomen) Respiratory: Reports Shortness of air Gastrointestinal: Reports No symptoms Genitourinary: Reports No Symptoms Musculoskeletal: Reports No symptoms Endocrine: Reports No symptoms Hematology: Reports No symptoms Immunology: Reports No symptoms Neurological: Reports No symptoms Psychiatric: Reports No symptoms Physical examination Most Recent Vital Signs: Most Recent Vital Signs Temperature 97.8 F 05/01/23 10:57 Temperature Source Oral 05/01/23 10:57 Temperature Source Oral 05/01/23 05:48 Pulse Rate 85 05/01/23 10:57 Respiratory Rate 20 05/01/23 10:57 Blood Pressure 131/74 05/01/23 05:48 Blood Pressure Right Arm 125/76 05/01/23 10:57 Blood Pressure Position Supine 05/01/23 10:57 O2 Sat by Pulse Oximetry 94 L 05/01/23 10:57 Oxygen Delivery Method Nasal Cannula 05/01/23 10:57 Oxygen Flow Rate 3 05/01/23 10:57 Height 6 ft 05/01/23 10:57 Weight 195 lb 11.2 oz 05/01/23 10:57 Telemetry Type Remote Telemetry 05/01/23 11:20 Telemetry Monitoring Started 05/01/23 11:20 Telemetry Heart Rate 74 05/01/23 11:20 EKG PA Interval 0.16 05/01/23 11:20 EKG QRS Interval 0.12 H 05/01/23 11:20 Telemetry Strip Reading vpaced with BBB 05/01/23 11:20 Appearance: Positive Alert and Oriented x3 Skin: Positive Warm and Good Turgor HEENT: Positive Normocephalic and Atraumatic Neck: Positive Supple and Midline Trachea Chest/Lungs: Positive Symmetrical With Equal Breath Sounds, Rhonci, Wheezes, Good Air Movement all 4 Lung Kohler and Other (accessory muscle use) Heart: Positive RRR and Pulses Normal GI/: Positive Soft, Nontender, Bowel Sounds Normal and Other (distended, soft abdomen) Musculoskeletal: Positive Not Examined Extremities: Positive Edema (+1 pitting edema), Intact Peripheral Pulses and Good ROM in All Joints Neurological: Positive Sensation Intact, Motor intact, Reflexes Intact, Alert, Oriented and Muscle Strength 5/5 in Upper and Lower Extremities Bilaterally Psychiatric: Positive Oriented x4, Appropriate Mood, Appropriate Affect and Intact Memory Labs This Visit Labs This Visit: Labs This Visit 05/01/23 05/01/23 05/01/23 05:56 06:31 06:37 WBC 11.93 H RBC 3.61 L Hgb 10.5 L Hct 33.1 L MCV 91.7 MCH 29.1 MCHC 31.7 L RDW Coeff of Ade 14.0 Plt Count 391 Immature Gran % (Auto) 0.7 Neut % (Auto) 83.6 H Lymph % (Auto) 8.6 L [place] % (Auto) 6.5 Eos % (Auto) 0.3 Baso % (Auto) 0.3 Neut # (Auto) 10.0 H Lymph # (Auto) 1.0 [place] # (Auto) 0.8 Eos # (Auto) 0.0 Baso # (Auto) 0.0 Immature Gran # (Auto) 0.1 Puncture Site Lb Base Excess 3.7 H O2 Saturation 98.4 H ABG pH 7.57 H* ABG pCO2 28.0 L ABG pO2 97.0 ABG HCO3 25.7 ABG Total CO2 26.6 H Ja Test Pos Hemoglobin 1.2 Oxyhemoglobin 95.5 Carboxyhemoglobin 2.1 H Total Hemoglobin 10.8 L O2 Delivery Device Cannula Oxygen Liter Flow 2.00 Sodium 138.3 Potassium 3.26 L Chloride 107.5 H Carbon Dioxide 27.7 Anion Gap 6.36 BUN 15.7 Creatinine 1.23 H Estimated GFR (MDRD) 56.00 BUN/Creatinine Ratio 12.76 Glucose 125.0 H Lactic Acid 1.03 Calcium 8.31 L Magnesium 2.03 Total Bilirubin 0.70 AST 81.2 H ALT 82.4 H Alkaline Phosphatase 70.8 Total Creatine Kinase 162.3 CK-MB (CK-2) 2.760 H CK-MB (CK-2) % 1.7000 Troponin I 0.076 NT-Pro-B Natriuret Pep 75625 H Total Protein 6.33 Albumin 3.41 L Globulin 2.92 Albumin/Globulin Ratio 1.16 Procalcitonin < 0.05 TSH 4.210 Free T4 1.95 Urine Color Yellow Urine Clarity Clear Urine pH 5.5 Ur Specific [place] 1.025 Urine Protein 1+ H Urine Glucose (UA) Negative Urine Ketones 1+ H Urine Blood 2+ H Urine Nitrite Negative Urine Bilirubin Negative Urine Urobilinogen 1.0 H Ur Leukocyte Esterase Negative Urine Microscopic RBC 10-20 Urine Microscopic WBC 0-2 Ur Squamous Epith Cells Not present Ur Renal Epithelial Cell 0-2 Hyaline Casts 0-2 SARS CoV-2 RNA Rapid PEDRO 05/01/23 06:40 WBC RBC Hgb Hct MCV MCH MCHC RDW Coeff of Ade Plt Count Immature Gran % (Auto) Neut % (Auto) Lymph % (Auto) [place] % (Auto) Eos % (Auto) Baso % (Auto) Neut # (Auto) Lymph # (Auto) [place] # (Auto) Eos # (Auto) Baso # (Auto) Immature Gran # (Auto) Puncture Site Base Excess O2 Saturation ABG pH ABG pCO2 ABG pO2 ABG HCO3 ABG Total CO2 Ja Test Hemoglobin Oxyhemoglobin Carboxyhemoglobin Total Hemoglobin O2 Delivery Device Oxygen Liter Flow Sodium Potassium Chloride Carbon Dioxide Anion Gap BUN Creatinine Estimated GFR (MDRD) BUN/Creatinine Ratio Glucose Lactic Acid Calcium Magnesium Total Bilirubin AST ALT Alkaline Phosphatase Total Creatine Kinase CK-MB (CK-2) CK-MB (CK-2) % Troponin I NT-Pro-B Natriuret Pep Total Protein Albumin Globulin Albumin/Globulin Ratio Procalcitonin TSH Free T4 Urine Color Urine Clarity Urine pH Ur Specific [place] Urine Protein Urine Glucose (UA) Urine Ketones Urine Blood Urine Nitrite Urine Bilirubin Urine Urobilinogen Ur Leukocyte Esterase Urine Microscopic RBC Urine Microscopic WBC Ur Squamous Epith Cells Ur Renal Epithelial Cell Hyaline Casts SARS CoV-2 RNA Rapid PEDRO Negative Imaging Imaging: EXAM: FRONTAL VIEW OF THE CHEST. HISTORY: Shortness of breath. COMPARISON: Chest radiograph 04/23/2023. FINDINGS: Stable biventricular pacer/ICD. Normal heart size. Atherosclerotic calcifications of the aorta. Band-like opacities at the left lung base. Mild blunting of the left costophrenic sulcus. No acute osseous abnormality. IMPRESSION: Small left pleural effusion versus scarring at the costophrenic sulcus. Mild left basilar atelectasis. Review Statement Review Statement: I have independently reviewed and interpreted the labs/EKGs/imaging that were ordered by the ER provider. I have reviewed all outside records that are available currently in our EMR including imaging/notes/labs from previous visits. Plan Plan: 1. Acute Hypoxic Respiratory Failure in the setting of CHF exacerbation - wean off O2 as tolerated, duonebs Q4H, albuterol Q6H prn, lasix 40 mg Q12H 2. Acute Systolic CHF Exacerbation - last EF was 35-40% in 2020, holding PO diuretics, lasix 40 Q12H IVP, I&O, daily weight, 1800 fluid restriction, cardiac diet, TEMITOPE hose 3. Leukocytosis - mild, negative UA & chest x-ray, no fever or signs of infection, procal negative, monitor 4. Elevated liver enzymes - recent biliary drain insertion due to cholecystitis, will trend, if no improvement will US abd 5. Atrial Fibrillation - chronic, not in RVR, continue home medications DVT Prophylaxis: TEMITOPE Time Spent: Greater than 80 minutes spent with patient, 50% of the time spent with this patient was devoted to counseling and coordination of care. [facility] Plannin minutes spent discussing advance care planning. Disposition: Full Code Admit to: Med/surg Inpatient Discussed Plan of Care with Dr. Lucille Macdonald. Medications Medication Orders: Medications Ordered Category Date Time Status 0.9 % Sodium Chloride [Saline Flush] Meds 05/01/23 05:52 Active 1 syr IVF PRN PRN Acetaminophen [Tylenol] Meds 05/01/23 10:29 Active 650 mg PO Q4H PRN Furosemide [Lasix] Meds 05/01/23 17:00 Active 40 mg IVP BIDAC
[2023-05-01] MEDS: DUONEB NEB SCH ×3 (13:26→21:15)
[2023-05-01] MEDS: MIRAPEX PO SCH ×2 (16:46→20:13)
[2023-05-01] MEDS: FLOMAX PO SCH (16:46)
[2023-05-01] MEDS: LASIX IVP SCH (16:46)
[2023-05-01] MEDS: MIDODRINE PO SCH ×2 (16:47→20:13)
[2023-05-01] MEDS: XANAX PO PRN (18:01)
[2023-05-01] MEDS: ENTRESTO 24 MG-26 MG TABLET PO SCH (20:12)
[2023-05-02] MEDS: DUONEB NEB SCH ×6 (01:00→21:19)
[2023-05-02 05:09] LABS: BASOPHILS # (AUTO) 0.1 K/uL (0-0.2); BASOPHILS % (AUTO) 0.5 % (0.0-3.0); EOSINOPHILS # (AUTO) 0.1 K/ul (0.0-0.7); EOSINOPHILS % (AUTO) 1.2 % (0.0-7.0); HEMATOCRIT 32.3 % (42.0-52.0); HEMOGLOBIN 10.4 g/dl (14.0-18.0); IMMATURE GRANULOCYTE # (AUTO) 0.1 (0.0-1.0); IMMATURE GRANULOCYTE % (AUTO) 0.5 % (0.0-5.0); LYMPHOCYTES # (AUTO) 1.3 K/uL (0.60-3.4); LYMPHOCYTES % (AUTO) 13.8 (10.0-50.0); MEAN CORPUSCULAR HEMOGLOBIN 29.9 pg (27.0-31.0); MEAN CORPUSCULAR HGB CONC 32.2 (31.8-35.4); MEAN CORPUSCULAR VOLUME 92.8 fl (80.0-94.0); MONOCYTES # (AUTO) 0.8 K/uL (0.4-2.0); MONOCYTES % (AUTO) 8.4 (0-10); NEUTROPHILS # (AUTO) 7.3 K/ul (2.0-6.9); NEUTROPHILS % (AUTO) 75.6 % (42.2-75.2); PLATELET COUNT 373 10^3/uL (140-440); RDW COEFFICIENT OF VARIATION 14.4 % (11.6-14.8); RED BLOOD COUNT 3.48 10^6/ul (4.70-6.10); WHITE BLOOD COUNT 9.66 K/ul (4.2-10.2)
[2023-05-02 05:20] LABS: ALANINE AMINOTRANSFERASE 66.4 U/L (0-50); ALBUMIN 3.26 g/dL (3.5-5.0); ASPARTATE AMINO TRANSFERASE 63.7 U/L (17-59); BILIRUBIN,TOTAL 0.73 mg/dL (0.2-1.3); BLOOD UREA NITROGEN 17.6 mg/dL (9-20); CALCIUM 8.21 mg/dL (8.4-10.2); CARBON DIOXIDE 32.7 mmol/L (22-30.0); CHLORIDE 102.7 mmol/L (98-107); CREATININE 1.29 mg/dL (0.60-1.10); GLUCOSE 112.9 mg/dL (74-106); POTASSIUM 2.86 mmol/L (3.5-5.1); SODIUM 137.7 mmol/L (134.5-145); TOTAL PROTEIN 6.06 g/dL (6.3-8.2)
[2023-05-02] MEDS: LASIX IVP SCH ×2 (05:45→17:55)
[2023-05-02] MEDS: PROTONIX PO SCH (05:45)
[2023-05-02] MEDS ORDERED: POTASSIUM CHLORIDE 20 MEQ/100 ML PREMIX 40 MEQ/200 ML BAG IV ONE (05:50)
[2023-05-02] MEDS ORDERED: K-DUR PO ONE (05:52)
[2023-05-02] MEDS: PROSCAR PO SCH (08:00)
[2023-05-02] MEDS: TOPROL XL PO SCH (08:00)
[2023-05-02] MEDS: MIDODRINE PO SCH ×3 (08:00→20:03)
[2023-05-02] MEDS: MIRAPEX PO SCH ×3 (08:00→20:04)
[2023-05-02] MEDS: VITAMIN D PO SCH (08:01)
[2023-05-02] MEDS: LEXAPRO PO SCH (08:01)
[2023-05-02] MEDS: LIPITOR PO SCH (08:01)
--- NOTE | 2023-05-02 09:50 | PCM.PROG ---
Date/Time Seen Date Seen by Provider: 05/02/23 Time Seen by Provider: 08:45 Provider Provider: TORY MARIO, [facility] Chief Complaint Chief Complaint: CHF EXACERBATION, HYPOXIA Subjective Subjective: No events overnight. Patient states his breathing is better today. Reports general malaise. Objective Appearance: Positive No Apparent Distress and Alert and Oriented x3 Chest/Lungs: Positive Symmetrical With Equal Breath Sounds, Clear to Auscultation Bilaterally and Good Air Movement all 4 Lung Kohler Heart: Positive RRR, Pulses Normal and Murmur GI/: Positive Soft, Nontender and Bowel Sounds Normal Musculoskeletal: Positive Not Examined Neurological: Positive Sensation Intact, Motor intact, Reflexes Intact, Alert, Oriented and Muscle Strength 5/5 in Upper and Lower Extremities Bilaterally Vital Signs Vital Signs: Vital Signs: Last 24 Hours 05/01/23 10:57 05/01/23 10:57 05/01/23 11:20 Temperature 97.8 F Temperature Source Oral Pulse Rate 85 Respiratory Rate 20 Blood Pressure Blood Pressure Mean Blood Pressure Right Arm 125/76 Blood Pressure Location Blood Pressure Position Supine O2 Sat by Pulse Oximetry 94 L Oxygen Delivery Method Nasal Cannula Nasal Cannula Oxygen Flow Rate 3 Height 6 ft Weight 195 lb 11.2 oz Telemetry Type Remote Telemetry Telemetry Monitoring Started Telemetry Heart Rate 74 Telemetry SPO2 EKG WI Interval 0.16 EKG QRS Interval 0.12 H EKG QT Interval Telemetry Strip Reading vpaced with BBB 05/01/23 13:25 05/01/23 13:00 05/01/23 14:00 Temperature Temperature Source Pulse Rate 80 Respiratory Rate Blood Pressure Blood Pressure Mean Blood Pressure Right Arm Blood Pressure Location Blood Pressure Position O2 Sat by Pulse Oximetry 92 L Oxygen Delivery Method Nasal Cannula Nasal Cannula Oxygen Flow Rate 3 3 Height Weight Telemetry Type Remote Telemetry Telemetry Monitoring Continues Telemetry Heart Rate 79 Telemetry SPO2 EKG WI Interval 0.19 EKG QRS Interval 0.08 EKG QT Interval Telemetry Strip Reading Vpaced 05/01/23 19:11 05/01/23 19:00 05/01/23 19:54 Temperature Temperature Source Pulse Rate Respiratory Rate Blood Pressure Blood Pressure Mean Blood Pressure Right Arm Blood Pressure Location Blood Pressure Position O2 Sat by Pulse Oximetry Oxygen Delivery Method Nasal Cannula Nasal Cannula Oxygen Flow Rate 3 3 Height Weight Telemetry Type Remote Telemetry Telemetry Monitoring Continues Telemetry Heart Rate 80 Telemetry SPO2 EKG WI Interval 0.14 EKG QRS Interval 0.14 H EKG QT Interval 0.33 Telemetry Strip Reading SR w/ occasional unifocal PVC's rare multifocal PVC's 05/01/23 22:00 05/01/23 22:00 05/02/23 01:00 Temperature 96.3 F L 96.3 F L Temperature Source Temporal Artery Scan Temporal Artery Scan Pulse Rate 91 91 Respiratory Rate 20 20 Blood Pressure 102/64 102/64 Blood Pressure Mean 76 76 Blood Pressure Right Arm Blood Pressure Location Right Arm Right Arm Blood Pressure Position Supine Supine O2 Sat by Pulse Oximetry 94 L 94 L Oxygen Delivery Method Nasal Cannula Nasal Cannula Oxygen Flow Rate 2 2 Height Weight Telemetry Type Remote Telemetry Telemetry Monitoring Continues Telemetry Heart Rate 83 Telemetry SPO2 93 EKG WI Interval 0.14 EKG QRS Interval 0.11 H EKG QT Interval Telemetry Strip Reading Paced rhythm 05/02/23 05:06 05/02/23 05:06 05/02/23 05:15 Temperature 97 F L Temperature Source Temporal Artery Scan Pulse Rate 94 Respiratory Rate 24 H Blood Pressure 111/71 Blood Pressure Mean 84 Blood Pressure Right Arm Blood Pressure Location Right Arm Blood Pressure Position Supine O2 Sat by Pulse Oximetry 95 92 L Oxygen Delivery Method Nasal Cannula Nasal Cannula Oxygen Flow Rate 3 3 Height Weight 198 lb Telemetry Type Telemetry Monitoring Telemetry Heart Rate Telemetry SPO2 EKG WI Interval EKG QRS Interval EKG QT Interval Telemetry Strip Reading 05/02/23 07:00 05/02/23 08:51 05/02/23 09:09 Temperature Temperature Source Pulse Rate Respiratory Rate Blood Pressure Blood Pressure Mean Blood Pressure Right Arm Blood Pressure Location Blood Pressure Position O2 Sat by Pulse Oximetry 96 Oxygen Delivery Method Nasal Cannula Oxygen Flow Rate 3 Height 6 ft Weight 198 lb Telemetry Type Remote Telemetry Telemetry Monitoring Continues Telemetry Heart Rate 87 Telemetry SPO2 EKG WI Interval EKG QRS Interval 0.08 EKG QT Interval Telemetry Strip Reading Vpaced with PVC Lab Results Lab Results: Lab Results: Last 24 Hours 05/02/23 04:57 WBC 9.66 RBC 3.48 L Hgb 10.4 L Hct 32.3 L MCV 92.8 MCH 29.9 MCHC 32.2 RDW Coeff of Ade 14.4 Plt Count 373 Immature Gran % (Auto) 0.5 Neut % (Auto) 75.6 H Lymph % (Auto) 13.8 [place] % (Auto) 8.4 Eos % (Auto) 1.2 Baso % (Auto) 0.5 Neut # (Auto) 7.3 H Lymph # (Auto) 1.3 [place] # (Auto) 0.8 Eos # (Auto) 0.1 Baso # (Auto) 0.1 Immature Gran # (Auto) 0.1 Sodium 137.7 Potassium 2.86 L Chloride 102.7 Carbon Dioxide 32.7 H Anion Gap 5.16 BUN 17.6 Creatinine 1.29 H Estimated GFR (MDRD) 53.00 BUN/Creatinine Ratio 13.64 Glucose 112.9 H Calcium 8.21 L Total Bilirubin 0.73 AST 63.7 H ALT 66.4 H Alkaline Phosphatase 65.0 Total Protein 6.06 L Albumin 3.26 L Globulin 2.80 Albumin/Globulin Ratio 1.16 Additional Comments Additional Comments: I have independently reviewed and interpreted the labs/EKGs/imaging ordered during this hospital stay. I have reviewed outside records that are available in our EMR that pertain to medical stay including imaging/notes/labs from previous visits. Active Medications Active Medications: Medications Generic Name Dose Route Start Last Admin Trade Name Freq PRN Reason Stop Dose Admin Acetaminophen 650 mg 05/01/23 10:29 Acetaminophen 325 Mg Tablet PO Q4H PRN Mild Pain Albuterol/Ipratropium 3 ml 05/01/23 14:00 05/02/23 09:09 Ipratropium/Albuterol Vial.Neb NEB 3 ml RTQ4H RADHA Administration Alprazolam 0.25 mg 05/01/23 14:02 05/01/23 18:01 Alprazolam 0.25 Mg Tablet PO 0.25 mg DAILY PRN Administration Anxiety Atorvastatin Calcium 10 mg 05/02/23 09:00 05/02/23 08:01 Atorvastatin Calcium 10 Mg Tablet PO 10 mg DAILY RADHA Administration Cholecalciferol 2,000 unit 05/02/23 09:00 05/02/23 08:01 Cholecalciferol (Vitamin D3) 1,000 Unit (25 Mcg) Tablet PO 2,000 unit DAILY RADHA Administration Escitalopram Oxalate 10 mg 05/02/23 09:00 05/02/23 08:01 Escitalopram Oxalate 10 Mg Tablet PO 10 mg DAILY RADHA Administration Finasteride 5 mg 05/02/23 09:00 05/02/23 08:00 Finasteride 5 Mg Tablet PO 5 mg DAILY RADHA Administration Furosemide 40 mg 05/01/23 17:00 05/02/23 05:45 Furosemide Inj 40 Mg/4 Ml Vial IVP 40 mg BIDAC RADHA Administration Potassium Chloride 40 meq in 200 mls @ 50 mls/hr 05/02/23 05:50 05/02/23 06:08 Potassium Chloride 20 Meq/100 Ml Premix IV 05/02/23 09:49 50 mls/hr ONCE ONE Administration Metoprolol Succinate 12.5 mg 05/02/23 09:00 05/02/23 08:00 Metoprolol Succinate 25 Mg Tab.Er.24h PO 12.5 mg DAILY RADHA Administration Midodrine 5 mg 05/01/23 15:00 05/02/23 08:00 Midodrine Hcl 5 Mg Tablet PO 5 mg TID RADHA Administration Non-Formulary Medication 500 mcg 05/02/23 09:00 05/02/23 08:03 Cyanocobalamin (Vitamin B-12) [Vitamin B-12] PO Not Given DAILY RADHA Pantoprazole Sodium 40 mg 05/02/23 06:30 05/02/23 05:45 Pantoprazole Sodium 40 Mg Tablet.Dr PO 40 mg QDAC RADHA Administration Potassium Chloride 20 meq 05/03/23 08:30 Potassium Chloride 20 Meq Tab PO DAILYWM RADHA Pramipexole Dihydrochloride 0.375 mg 05/01/23 15:00 05/02/23 08:00 Pramipexole Di-Hcl 0.25 Mg Tablet PO 0.375 mg TID RADHA Administration Sacubitril/Valsartan 0.5 each 05/01/23 21:00 05/01/23 20:12 Sacubitril/Valsartan 1 Each Tablet PO 0.5 each BEDTIME RADHA Administration Sodium Chloride 1 syr 05/01/23 21:00 05/02/23 05:45 0.9% Sodium Chloride 10 Ml Disp.Syrin IVF 1 syr Q8HR RADHA Administration Tamsulosin HCl 0.4 mg 05/01/23 17:00 05/01/23 16:46 Tamsulosin Hcl 0.4 Mg Cap.Er.24h PO 0.4 mg QPM RADHA Administration Plan Plan: 1. Acute Hypoxic Respiratory Failure in the setting of CHF exacerbation - improving, weaning O2 from 3L to 2L today, continue to wean off O2 as tolerated, manpreetbs Q4H while awake, albuterol Q6H prn, lasix 40 mg Q12H 2. Acute Systolic CHF Exacerbation - improving, good response to diuretics; most recent records from [facility] show echo completed on 04/20/23 with EF of 20%, LV severely dilated with severely reduced LV systolic function and Grade 1 diastolic dysfunction; holding PO diuretics, lasix 40 Q12H IVP, I&O, daily weight, 1800 fluid restriction, cardiac diet, TEMITOPE hose 3. Leukocytosis - resolved, negative UA & chest x-ray, no fever or signs of infection, procal negative, monitor 4. Elevated liver enzymes - improving, recent biliary drain insertion due to cholecystitis, will trend, if no improvement will US abd 5. Atrial Fibrillation - chronic, not in RVR, continue home medications 6. Hypokalemia - likely due to diuretic use, replace and monitor, adding PO lasix daily DVT Prophylaxis: TEMITOPE Review Statement Review Statement: I have personally discussed and reviewed the patient's visit/currently labs/imaging/decision making with Dr. Macdonald, my supervising attending. Greater that 50 minutes spent with patient, 50% of the time spent with this patient was devoted to counseling and coordination of care.
--- NOTE | 2023-05-02 11:50 | RS.PTINEVL ---
Subjective Patient information Date of Evaluation: 05/02/23 Date of Arrival on Unit: 05/01/23 Admitted From:: Assisted Diagnosis: acute hypoxic resp failure, CHF exacerbation, impaired balance Usual Living Arrangement: Assisted Living Arrangement Comments: pt has been in skilled nursing since approx 04/15/23 per , has not received therapy yet due to having to return to hospital multiple times. Medical History: Hypertension, CVA/TIA (w R side weakness ), CHF and Arthritis Medical History Comments:: Parkinson's disease, Afib, hearing loss LATEX ALLERGY?: No Surgical History Comments:: pacemaker, watchman L atrial appendage closure device Medications: see chart Subjective Information/ Patient Comments:: pt states that his L arm hurts due to IV. reports he has not walked since he became sick 04/14/23. Level of function Abilities prior to this admission: reports skilled nursing was using a bassam steady to get pt up to chair. Unable to get therapy started due to rehospitalization. Current Level of Function: Dependent Current Equipment Used at Home: Used cane occasionally prior to illness Pain Assessement Location Left Arm: Description: Aching Pain Behavior: Facial Grimacing Interventions Objective Patient Orientation: Person and Place Current Interventions: IV's, Oxygen (3 liters), Telemetry and Mccoy Catheter Range of Motion ROM Right Upper Extremity AROM: Slight limitation (Limited shld flex) Left Upper Extremity AROM: Slight limitation (Limited shld flex) Right Lower Extremity AROM: Slight limitation (limited hip and knee flex ) Left Lower Extremity AROM: Slight limitation (limited hip and knee flex ) Muscle Strength Muscle Strength Right Upper Extremity: Mild Weakness (shld flex 3-/5, elbow flex/ext 4-/5, decreased press writer) Left Upper Extremity: Mild Weakness (shld flex 3-/5, elbow flex/ext 4-/5, decreased press writer) Right Lower Extremity: Mild Weakness (hip flex 3-/5, knee flex/ext 3/5, ankle 3- /5) Left Lower Extremity: Mild Weakness (hip flex 3-/5, knee flex/ext 3/5, ankle 3- /5) Sensation Sensation Right Upper Extremity: Intact/Normal Left Upper Extremity: Intact/Normal Right Lower Extremity: Intact/Normal Left Lower Extremity: Intact/Normal Palpation Palpation Findings: Tenderness (L UE near IV site) Balance Sitting Balance and Reactions Static Sitting Balance: Poor Dynamic Sitting Balance: Poor Sitting Equilibrium Reactions: Absent Left and Absent Right Sitting Protective Reactions: Absent Left and Absent Right Standing Balance and Reactions Static Standing Balance: Poor Dynamic Standing Balance: Poor Standing Equilibrium Reactions: Absent Left and Absent Right Standing Protective Reactions: Absent Left and Absent Right Functional Mobility Bed Mobility Rolling R/L: Max Assist and 2 person assist Scooting: Max Assist and 2 person assist Supine to Sit: Max Assist and 2 person assist Transfers Sit to Stand: Max Assist and 2 person assist Stand to Sit: Max Assist and 2 person assist Stand Pivot Transfers: Max Assist and 2 person assist Comments:: pt placed on a lift pad in recliner. Advised nursing to use lift pad to get pt back to bed. Safety Awareness Safety Awareness: Poor JAME INDEX SCORE: n/a Treatment time Units charged ADL: 1 (ther act ) Time with patient Length of Evaluation: 19 Total treatment time: 30 Patient Education Education Patient Education: Activity Modification Teaching Recipient: Patient and Family Teaching Methods: Discussion Assessment Assessment Problem List:: Decreased level of function, Requires training/education, Decreased safety/Risk of falls, Weakness and Cognitive status limits abilities Rehab Potential: Fair Further Therapy Indicated?: Yes Candidate for Swing Bed for Therapy Services?: Feel pt may not be a candidate for swing bed due to pt is a resident of skilled nursing. Evaluation Complexity: HISTORY: Medium, EXAM OF BODY SYSTEMS: Medium, CLINICAL PRESENTATION: Medium and CLINICAL DECISION MAKING: Medium Patient's Goal(s): 's goal is for pt to be able to transfer and walk again. Short Term Goals GOAL #1: pt demonstrate rolling with bedrail mod x 1 Goal to be met by: 05/05/23 GOAL #2: Transfer sup to/from sit mod x 2 Goal to be met by: 05/05/23 GOAL #3: Transfer sit to/from stand mod x 2 Goal to be met by: 05/05/23 GOAL #4: Improve AAROM all 4 extr's WFL's Goal to be met by: 05/05/23 GOAL #5: pt able to maintain dyn sitting balance reaching away and across midline. Goal to be met by: 05/05/23 Longterm Goals GOAL #1: pt requires min x 1 rolling and positioning in bed. 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
--- NOTE | 2023-05-02 12:18 | RS.SLPCNOT ---
Speech Case Note Date of Note: 05/02/23 Title: Speech consult Note: CARDIOLOGY TEACHER was consulted due to pt's modified diet texture and pt's level of arousal at time of swallow screen. CARDIOLOGY TEACHER and RN discussed pt's case. The patient's has been at the bedside assisting pt with all PO intake. Per report, the patient consumes a puree diet texture and thin liquids. Per nursing, he has tolerated modified diet and thin liquids without overt s/s of aspiration. Medications are safely administered via PO one at a time. No concerns for further evaluation from ST at this time. CARDIOLOGY TEACHER and RN agreed to order BSE if pt's swallow function changes. Thank you for this consult.
[2023-05-02 14:14] LABS: CALCIUM 8.4 mg/dL (8.4-10.2); CREATININE 1.4 mg/dL (0.60-1.10); POTASSIUM 3.8 mmol/L (3.5-5.1)
[2023-05-02] MEDS: FLOMAX PO SCH (17:54)
[2023-05-02] MEDS: ENTRESTO 24 MG-26 MG TABLET PO SCH (20:03)
[2023-05-02] MEDS: XANAX PO PRN (20:05)
[2023-05-03] MEDS: DUONEB NEB SCH ×4 (01:00→13:53)
[2023-05-03 05:13] VITALS: BP 97/63; PULSE 92; RESP 16; TEMP 96.4
[2023-05-03 05:14] LABS: BASOPHILS % (AUTO) 0.3 % (0.0-3.0); EOSINOPHILS # (AUTO) 0.1 K/ul (0.0-0.7); EOSINOPHILS % (AUTO) 1.4 % (0.0-7.0); HEMATOCRIT 35.6 % (42.0-52.0); HEMOGLOBIN 11.2 g/dl (14.0-18.0); IMMATURE GRANULOCYTE # (AUTO) 0.1 (0.0-1.0); IMMATURE GRANULOCYTE % (AUTO) 0.7 % (0.0-5.0); LYMPHOCYTES # (AUTO) 1.4 K/uL (0.60-3.4); LYMPHOCYTES % (AUTO) 13.4 (10.0-50.0); MEAN CORPUSCULAR HGB CONC 31.5 (31.8-35.4); MEAN CORPUSCULAR VOLUME 92.2 fl (80.0-94.0); MONOCYTES % (AUTO) 9.9 (0-10); NEUTROPHILS # (AUTO) 7.6 K/ul (2.0-6.9); NEUTROPHILS % (AUTO) 74.3 % (42.2-75.2); PLATELET COUNT 381 10^3/uL (140-440); RDW COEFFICIENT OF VARIATION 14.2 % (11.6-14.8); RED BLOOD COUNT 3.86 10^6/ul (4.70-6.10); WHITE BLOOD COUNT 10.22 K/ul (4.2-10.2)
[2023-05-03 05:26] LABS: ALANINE AMINOTRANSFERASE 58.5 U/L (0-50); ALBUMIN 3.62 g/dL (3.5-5.0); ALKALINE PHOSPHATASE 75.3 U/L (56-119); ASPARTATE AMINO TRANSFERASE 48.2 U/L (17-59); BILIRUBIN,TOTAL 1.14 mg/dL (0.2-1.3); BLOOD UREA NITROGEN 19.1 mg/dL (9-20); CALCIUM 8.82 mg/dL (8.4-10.2); CARBON DIOXIDE 32.3 mmol/L (22-30.0); CHLORIDE 99.8 mmol/L (98-107); CREATININE 1.36 mg/dL (0.60-1.10); GLUCOSE 121.7 mg/dL (74-106); POTASSIUM 3.69 mmol/L (3.5-5.1); SODIUM 136.1 mmol/L (134.5-145); TOTAL PROTEIN 6.67 g/dL (6.3-8.2)
[2023-05-03] MEDS: PROTONIX PO SCH (05:43)
[2023-05-03] MEDS ORDERED: K-DUR PO SCH (08:30)
[2023-05-03] MEDS: MIRAPEX PO SCH (08:58)
[2023-05-03] MEDS: LIPITOR PO SCH (08:58)
[2023-05-03] MEDS: PROSCAR PO SCH (08:58)
[2023-05-03] MEDS ORDERED: LASIX IVP SCH (09:00)
[2023-05-03] MEDS: MIDODRINE PO SCH (09:03)
[2023-05-03] MEDS: LEXAPRO PO SCH (09:03)
[2023-05-03] MEDS: TOPROL XL PO SCH (09:03)
[2023-05-03] MEDS: VITAMIN D PO SCH (09:04)
--- NOTE | 2023-05-03 11:33 | PCM.PROG ---
Date/Time Seen Date Seen by Provider: 05/03/23 Time Seen by Provider: 08:45 Provider [facility] Chief Complaint Chief Complaint: CHF EXACERBATION, HYPOXIA Vital Signs Vital Signs: Vital Signs: Last 24 Hours 05/02/23 14:00 05/02/23 13:55 05/02/23 13:00 Temperature 98.1 F Temperature Source Oral Pulse Rate 94 Respiratory Rate 20 Blood Pressure 102/63 Blood Pressure Mean 76 Blood Pressure Location Right Arm Blood Pressure Position Sitting O2 Sat by Pulse Oximetry 96 Oxygen Delivery Method Nasal Cannula Nasal Cannula Oxygen Flow Rate 3 3 Weight Telemetry Type Remote Telemetry Telemetry Monitoring Continues Telemetry Heart Rate 95 Telemetry SPO2 97 EKG [place] Interval 0.15 EKG QRS Interval 0.64 H Telemetry Strip Reading Vpaced 05/02/23 14:00 05/02/23 18:29 05/02/23 19:00 Temperature Temperature Source Pulse Rate Respiratory Rate Blood Pressure Blood Pressure Mean Blood Pressure Location Blood Pressure Position O2 Sat by Pulse Oximetry 100 98 Oxygen Delivery Method Nasal Cannula Nasal Cannula Oxygen Flow Rate 3 2 Weight Telemetry Type Remote Telemetry Telemetry Monitoring Continues Telemetry Heart Rate 79 Telemetry SPO2 96 EKG [place] Interval EKG QRS Interval 0.74 H Telemetry Strip Reading Paced Rhythm 05/02/23 20:00 05/02/23 21:53 05/03/23 01:00 Temperature 96.0 F L Temperature Source Temporal Artery Scan Pulse Rate 94 Respiratory Rate 22 H Blood Pressure 112/71 Blood Pressure Mean 84 Blood Pressure Location Right Arm Blood Pressure Position Supine O2 Sat by Pulse Oximetry 91 L Oxygen Delivery Method Nasal Cannula Nebulizer Treatment Oxygen Flow Rate 3 Weight Telemetry Type Remote Telemetry Telemetry Monitoring Continues Telemetry Heart Rate 81 Telemetry SPO2 91 L EKG [place] Interval EKG QRS Interval Telemetry Strip Reading Paced Rhythm with PVC 05/02/23 20:00 05/03/23 05:02 05/03/23 05:12 Temperature 96.4 F L Temperature Source Temporal Artery Scan Pulse Rate 92 Respiratory Rate 16 Blood Pressure 97/63 Blood Pressure Mean 74 Blood Pressure Location Right Arm Blood Pressure Position Supine O2 Sat by Pulse Oximetry 96 92 L 90 L Oxygen Delivery Method Nasal Cannula Room Air Room Air Oxygen Flow Rate 2 Weight Telemetry Type Telemetry Monitoring Telemetry Heart Rate Telemetry SPO2 EKG [place] Interval EKG QRS Interval Telemetry Strip Reading 05/03/23 05:14 07/19/23 09:21 05/03/23 08:00 Temperature Temperature Source Pulse Rate Respiratory Rate Blood Pressure Blood Pressure Mean Blood Pressure Location Blood Pressure Position O2 Sat by Pulse Oximetry 92 L Oxygen Delivery Method Nasal Cannula Nasal Cannula Oxygen Flow Rate 2 3 Weight 197 lb Telemetry Type Telemetry Monitoring Telemetry Heart Rate Telemetry SPO2 EKG [place] Interval EKG QRS Interval Telemetry Strip Reading Lab Results Lab Results: Lab Results: Last 24 Hours 05/03/23 05/02/23 04:39 13:59 WBC 10.22 H RBC 3.86 L Hgb 11.2 L Hct 35.6 L MCV 92.2 MCH 29.0 MCHC 31.5 L RDW Coeff of Ade 14.2 Plt Count 381 Immature Gran % (Auto) 0.7 Neut % (Auto) 74.3 Lymph % (Auto) 13.4 [place] % (Auto) 9.9 Eos % (Auto) 1.4 Baso % (Auto) 0.3 Neut # (Auto) 7.6 H Lymph # (Auto) 1.4 [place] # (Auto) 1.0 Eos # (Auto) 0.1 Baso # (Auto) 0.0 Immature Gran # (Auto) 0.1 Sodium 136.1 137.0 Potassium 3.69 3.80 Chloride 99.8 102.0 Carbon Dioxide 32.3 H 31.0 H Anion Gap 7.69 7.80 BUN 19.1 19.0 Creatinine 1.36 H 1.40 H Estimated GFR (MDRD) 50.00 48.00 BUN/Creatinine Ratio 14.04 13.57 Glucose 121.7 H 129.0 H Calcium 8.82 8.40 Total Bilirubin 1.14 AST 48.2 ALT 58.5 H Alkaline Phosphatase 75.3 Total Protein 6.67 Albumin 3.62 Globulin 3.05 Albumin/Globulin Ratio 1.18 Additional Comments Additional Comments: I have independently reviewed and interpreted the labs/EKGs/imaging ordered during this hospital stay. I have reviewed outside records that are available in our EMR that pertain to medical stay including imaging/notes/labs from previous visits. Active Medications Active Medications: Medications Generic Name Dose Route Start Last Admin Trade Name Freq PRN Reason Stop Dose Admin Acetaminophen 650 mg 05/01/23 10:29 Acetaminophen 325 Mg Tablet PO Q4H PRN Mild Pain Albuterol/Ipratropium 3 ml 05/01/23 14:00 05/03/23 09:27 Ipratropium/Albuterol Vial.Neb NEB 3 ml RTQ4H RADHA Administration Alprazolam 0.25 mg 05/01/23 14:02 05/02/23 20:05 Alprazolam 0.25 Mg Tablet PO 0.25 mg DAILY PRN Administration Anxiety Atorvastatin Calcium 10 mg 05/02/23 09:00 05/03/23 08:58 Atorvastatin Calcium 10 Mg Tablet PO 10 mg DAILY RADHA Administration Cholecalciferol 2,000 unit 05/02/23 09:00 05/03/23 09:04 Cholecalciferol (Vitamin D3) 1,000 Unit (25 Mcg) Tablet PO 2,000 unit DAILY RADHA Administration Escitalopram Oxalate 10 mg 05/02/23 09:00 05/03/23 09:03 Escitalopram Oxalate 10 Mg Tablet PO 10 mg DAILY RADHA Administration Finasteride 5 mg 05/02/23 09:00 05/03/23 08:58 Finasteride 5 Mg Tablet PO 5 mg DAILY RADHA Administration Furosemide 20 mg 05/04/23 06:30 Furosemide 20 Mg Tablet PO QDAC [facility] Metoprolol Succinate 12.5 mg 05/02/23 09:00 05/03/23 09:03 Metoprolol Succinate 25 Mg Tab.Er.24h PO 12.5 mg DAILY [facility] Administration Midodrine 5 mg 05/01/23 15:00 05/03/23 09:03 Midodrine Hcl 5 Mg Tablet PO 5 mg TID RADHA Administration Non-Formulary Medication 500 mcg 05/02/23 09:00 05/03/23 09:13 Cyanocobalamin (Vitamin B-12) [Vitamin B-12] PO Not Given DAILY [facility] Pantoprazole Sodium 40 mg 05/02/23 06:30 05/03/23 05:43 Pantoprazole Sodium 40 Mg Tablet.Dr PO 40 mg QDAC RADHA Administration Potassium Chloride 20 meq 05/03/23 08:30 05/03/23 09:03 Potassium Chloride 20 Meq Tab PO 20 meq DAILYWM RADHA Administration Pramipexole Dihydrochloride 0.375 mg 05/01/23 15:00 05/03/23 08:58 Pramipexole Di-Hcl 0.25 Mg Tablet PO 0.375 mg TID [facility] Administration Sacubitril/Valsartan 0.5 each 05/01/23 21:00 05/02/23 20:03 Sacubitril/Valsartan 1 Each Tablet PO 0.5 each BEDTIME RADHA Administration Sodium Chloride 1 syr 05/01/23 21:00 05/03/23 05:52 0.9% Sodium Chloride 10 Ml Disp.Syrin IVF 1 syr Q8HR RADHA Administration Tamsulosin HCl 0.4 mg 05/01/23 17:00 05/02/23 17:54 Tamsulosin Hcl 0.4 Mg Cap.Er.24h PO 0.4 mg QPM RADHA Administration Plan Plan: 1. Acute Hypoxic Respiratory Failure in the setting of CHF exacerbation - improving, weaning O2 from 2L to RA today, duonebs Q4H while awake, albuterol Q6H prn, transition lasix to PO 2. Acute Systolic CHF Exacerbation - improving, good response to diuretics; most recent records from [facility] show echo completed on 04/20/23 with EF of 20%, LV severely dilated with severely reduced LV systolic function and Grade 1 diastolic dysfunction; I&O, daily weight, 1800 fluid restriction, cardiac diet, TEMITOPE hose, transitioning from IV lasix to PO 3. Leukocytosis - resolved, negative UA & chest x-ray, no fever or signs of infection, procal negative, monitor 4. Elevated liver enzymes - improving, recent biliary drain insertion due to cholecystitis, will trend, if no improvement will US abd 5. Atrial Fibrillation - chronic, not in RVR, continue home medications 6. Hypokalemia - resolved, monitor DVT Prophylaxis: TEMITOPE Plan to [facility]C back to jail tomorrow after toleration of RA today. Review Statement Review Statement: I have personally discussed and reviewed the patient's visit/currently labs/imaging/decision making with Dr. Macdonald, my supervising attending. Greater that 50 minutes spent with patient, 50% of the time spent with this patient was devoted to counseling and coordination of care.
--- NOTE | 2023-05-03 11:44 | DCSUM ---
Admission Date Admission Date: 05/01/23 Discharge Date Discharge Date: 05/03/23 Admission Diagnosis Admission Diagnosis: Acute Hypoxic Respiratory Failure, CHF Exacerbation Discharge Diagnosis Discharge Diagnosis: Acute Hypoxic Respiratory Failure, CHF Exacerbation Hospital Provider Hospital Provider: [place]ORY MARIO[place] [facility] [place] Primary Care Physician: MARYLOU CALLAHAN MD Summary of History and Physical Summary of History and Physical: 82 yo male from local long term presented to the ER with complaints of shortness of breath over the last couple days. Patient has a history of CHF and A fib. In ER, he was found to be hypoxic into the upper 80s and is requiring 2- 3L NC at this time. He does not wear oxygen normally. Family reports that on 04/14 patient was seen here and transferred to [facility] for cholecystitis. While he was there he had a biliary drain placed for treatment of cholecystitis due to patient not being a surgical candidate for cholecystectomy. Drain was removed 1- 2 weeks ago. Patient denies any chest pain, back pain, abdominal pain, fever, chills, nausea, vomiting or diarrhea. Patient's BNP was found to be greater than 13,000 and he was given 40 mg of Lasix IV push. Upon arrival to the MedSurg unit, his Mccoy bag had 1800 mL present. Hospital Course Subjective: Upon admission, patient was requiring 3L NC. Over course of stay, he has been weaned off his oxygen and is on RA at this time and staying between 96-98%. He received nebulizer treatments as well during his stay. His BNP was found to be >13,000 as well and was diuresed with lasix 40 mg IVP BID. He was 203 lbs on arrival to the ER and today is down to 197. His potassium dropped to 2.8 with diuresis which was corrected and he was started on PO KCL daily. His WBC was 12 on admission and has stayed around that area. He has no signs of infection present. Ua and chest x-ray. No fever. Procal negative. All other home medications were continued for chronic conditions. PT/OT evaluated and have been treating the patient. Appearance: Pleasant, No Apparent Distress and Alert HEENT: MMM and Supple CVS: No Murmur Abdomen: Soft and Non-Tender Respiratory: No Wheezing Extremities: No Edema Vital Signs: Most Recent Vital Signs Temperature 96.4 F L 05/03/23 05:12 Temperature Source Temporal Artery Scan 05/03/23 05:12 Temperature Source Oral 05/01/23 05:48 Pulse Rate 92 05/03/23 05:12 Respiratory Rate 16 05/03/23 05:12 Blood Pressure 97/63 05/03/23 05:12 Blood Pressure Mean 74 05/03/23 05:12 Blood Pressure Right Arm 125/76 05/01/23 10:57 Blood Pressure Location Right Arm 05/03/23 05:12 Blood Pressure Position Supine 05/03/23 05:12 O2 Sat by Pulse Oximetry 92 L 05/03/23 09:21 Oxygen Delivery Method Nasal Cannula 05/03/23 09:21 Oxygen Flow Rate 2 05/03/23 09:21 Height 6 ft 05/02/23 08:51 Weight 197 lb 05/03/23 05:14 Telemetry Type Remote Telemetry 05/03/23 01:00 Telemetry Monitoring Continues 05/03/23 01:00 Telemetry Heart Rate 81 05/03/23 01:00 Telemetry SPO2 91 L 05/03/23 01:00 EKG [place] Interval 0.15 05/02/23 13:00 EKG QRS Interval 0.74 H 05/02/23 19:00 EKG QT Interval 0.33 05/01/23 19:00 Telemetry Strip Reading Paced Rhythm with PVC 05/03/23 01:00 Lab Results Last 24 Hours: 05/03/23 05/02/23 04:39 13:59 WBC 10.22 H RBC 3.86 L Hgb 11.2 L Hct 35.6 L MCV 92.2 MCH 29.0 MCHC 31.5 L RDW Coeff of Ade 14.2 Plt Count 381 Immature Gran % (Auto) 0.7 Neut % (Auto) 74.3 Lymph % (Auto) 13.4 [place] % (Auto) 9.9 Eos % (Auto) 1.4 Baso % (Auto) 0.3 Neut # (Auto) 7.6 H Lymph # (Auto) 1.4 [place] # (Auto) 1.0 Eos # (Auto) 0.1 Baso # (Auto) 0.0 Immature Gran # (Auto) 0.1 Sodium 136.1 137.0 Potassium 3.69 3.80 Chloride 99.8 102.0 Carbon Dioxide 32.3 H 31.0 H Anion Gap 7.69 7.80 BUN 19.1 19.0 Creatinine 1.36 H 1.40 H Estimated GFR (MDRD) 50.00 48.00 BUN/Creatinine Ratio 14.04 13.57 Glucose 121.7 H 129.0 H Calcium 8.82 8.40 Total Bilirubin 1.14 AST 48.2 ALT 58.5 H Alkaline Phosphatase 75.3 Total Protein 6.67 Albumin 3.62 Globulin 3.05 Albumin/Globulin Ratio 1.18 Discharge Instructions Discharge Planning: Discharge Planning > 40 minutes If patient is discharged with left ventricular systolic dysfunction: Yes Discharged with a beta oniel? Yes, already taking Discharged with an vickie/arb? Yes, already taking Weight daily Fluid restriction of 1800 mL daily Elevate legs when sitting above level of the heart to avoid dependent edema Continue home Lasix dose Follow-up with PCP Activity as tolerated Continue PT/OT Discharge Medications: Medications at Discharge (Home Meds & RX) tamsulosin 0.4 mg capsule 0.4 mg PO QPM 04/18/13 sacubitril 24 mg-valsartan 26 mg tablet (Entresto) 0.5 tab PO BEDTIME 11/27/20 tramadol 50 mg tablet 50 mg PO Q6H PRN Pain 01/10/22 cholecalciferol (vitamin D3) 25 mcg (1,000 unit) tablet (Vitamin D3) 50 mcg PO DAILY 04/13/22 cyanocobalamin (vitamin B-12) 500 mcg tablet (Vitamin B-12) 500 mcg PO DAILY 04/13/22 shwzsuqdevud-sthffkbe-lqteds tablet 1 tab PO DAILY 04/13/22 pramipexole 0.125 mg tablet (Mirapex) 0.25 mg PO TID 01/06/23 finasteride 5 mg tablet See Rx Instructions .Route .COMPLEX #90 tabs 01/09/23 escitalopram oxalate 10 mg tablet See Rx Instructions .Route .COMPLEX #90 tabs 01/26/23 alprazolam 0.25 mg tablet 0.25 mg PO DAILY PRN anxiety 02/20/23 midodrine 5 mg tablet 5 mg PO TID 02/20/23 ondansetron 4 mg disintegrating tablet 4 mg PO Q8H PRN nausea and vomiting 02/20/23 cyanocobalamin (vitamin B-12) 1,000 mcg/mL injection solution See Rx Instructions .Route .COMPLEX #100 mL 02/23/23 metoprolol succinate 25 mg tablet,extended release 24 hr See Rx Instructions .Route .COMPLEX #45 tabs 02/24/23 pantoprazole 40 mg tablet,delayed release 40 mg PO DAILY #90 tabs 03/30/23 atorvastatin 10 mg tablet 10 mg PO DAILY #90 tabs 04/11/23 furosemide 20 mg tablet (Lasix) 20 mg PO DAILY FLUID RETENTION #90 tabs 04/11/23 ipratropium 0.5 mg-albuterol 3 mg (2.5 mg base)/3 mL nebulization soln 3 ml inhalation Q6-8H PRN congestion 05/01/23 pramipexole 0.125 mg tablet (Mirapex) 0.125 mg PO TID 05/01/23 Discharge Plan Discharge Discharge Orders: Discharge Patient (ONCE); Ordered 05/03/23 Ordered By: LUCIEN BARKER Activity Restrictions/Additional Instructions: Weight daily Fluid restriction of 1800 mL daily Elevate legs when sitting above level of the heart to avoid dependent edema Continue home Lasix dose Follow-up with PCP Activity as tolerated Continue PT/OT Instructions: Heart Failure (GEN), Fluid Restriction (GEN) Patient Disposition: TRANSFER SNF Prescriptions: Continued finasteride 5 mg tablet See Rx Instructions .ROUTE .COMPLEX Qty: 90 1RF Dose Instruction: TAKE ONE TABLET DAILY Rx Instructions: TAKE ONE TABLET DAILY escitalopram oxalate 10 mg tablet See Rx Instructions .ROUTE .COMPLEX Qty: 90 1RF Dose Instruction: TAKE ONE TABLET DAILY Rx Instructions: TAKE ONE TABLET DAILY cyanocobalamin (vitamin B-12) 1,000 mcg/mL solution See Rx Instructions .ROUTE .COMPLEX Qty: 100 3RF Dose Instruction: INJECT 1000MCG MONTHLY DIRECTED Rx Instructions: INJECT 1000MCG MONTHLY DIRECTED metoprolol succinate 25 mg tablet extended release 24 hr See Rx Instructions .ROUTE .COMPLEX Qty: 45 1RF Dose Instruction: TAKE ONE HALF (1/2) TABLET DAILY Rx Instructions: TAKE ONE HALF (1/2) TABLET DAILY pantoprazole 40 mg tablet,delayed release (DR/EC) 40 mg PO DAILY Qty: 90 1RF tamsulosin 0.4 MG capsule 0.4 mg PO QPM Entresto 24-26 mg Tablet 0.5 tab PO BEDTIME pramipexole [Mirapex] 0.125 mg tablet 0.125 mg PO TID ipratropium-albuterol 0.5 mg-3 mg(2.5 mg base)/3 mL solution for nebulization 3 ml inhalation Q6-8H PRN (Reason: congestion) tramadol 50 mg tablet 50 mg PO Q6H PRN (Reason: Pain) cyanocobalamin (vitamin B-12) [Vitamin B-12] 500 mcg Tablet 500 mcg PO DAILY gtfqozxrghca-bagkhvhy-svvhna Tablet 1 tab PO DAILY cholecalciferol (vitamin D3) [Vitamin D3] 25 mcg (1,000 unit) Tablet 50 mcg PO DAILY midodrine 5 mg tablet 5 mg PO TID ondansetron 4 mg tablet,disintegrating 4 mg PO Q8H PRN (Reason: nausea and vomiting) alprazolam 0.25 mg tablet 0.25 mg PO DAILY PRN (Reason: anxiety) atorvastatin 10 mg tablet 10 mg PO DAILY Qty: 90 1RF furosemide [Lasix] 20 mg tablet 20 mg PO DAILY Qty: 90 1RF Rx Instructions: IF > 2 POUND WEIGHT GAIN EVERY DAY pramipexole [Mirapex] 0.125 mg tablet 0.25 mg PO TID Did you review [place] [employer] for ALL controlled substances?: No Discussed opioids are addictive and Narcan is available by prescription or from pharmacy.: No Condition: Fair
--- NOTE | 2023-05-03 13:34 | RS.OTINEVL ---
Subjective Patient information Date of Evaluation: 05/03/23 Date of Arrival on Unit: 05/01/23 Admitted From:: Custodial Diagnosis: CHF, AFIB PRECAUTIONS: Parkinson's Usual Living Arrangement: Custodial Living Arrangement Comments: pt has been in custodial since approx 04/15/23 per , has not received therapy yet due to having to return to hospital multiple times. Medical History: Hypertension, CVA/TIA (w R side weakness ), CHF and Arthritis Medical History Comments:: Parkinson's disease, Afib, hearing loss LATEX ALLERGY?: No Surgical History Comments:: pacemaker, watchman L atrial appendage closure device Medications: see chart Level of function Current Level of Function: Partially Dependent Current Equipment Used at Home: Used cane occasionally prior to illness Interventions Objective Patient Orientation: Person, Place and Situation Observation: Pt is not wearing O2. Pt was able to feed himself this morning after setup. Pt moderate assistance to scoot to EOB. Pt is max x 2 to stand EOB with RW. Pt is max A x 2 to stand pivot to chair. Pt has limited Shoulder flex ion due to tightness. Pt does not know where to put his feet to stand EOB. Pt did follow commands for placement of left hand on arm of chair to sit down. Interventions ROM Right Upper Extremity AROM: Slight limitation Left Upper Extremity AROM: Slight limitation Comments: Tight in extremities. Strength Right Upper Extremity: Mild Weakness Left Upper Extremity: Mild Weakness Sensation Right Upper Extremity: Intact/Normal Left Upper Extremity: Intact/Normal Balance Sitting Balance Static Sitting Balance: Poor Dynamic Sitting Balance: Poor Standing Balance Static Standing Balance: Poor Dynamic Standing Balance: Poor Comments Balance Assessment Comments: Pt leans to the right in sitting. ADL Skills Self Feeding Self Feeding: Set Up Only Bathing Bathing UE: Max Assist and 2 person assist Bathing LE: Max Assist and 2 person assist Bathing Set-up: Bedside Dressing Dressing UE: Max Assist and 2 person assist Dressing LE: Max Assist and 2 person assist Toilet Management Toilet Hygiene: Max Assist Toilet Clothing Management: Max Assist Functional Mobility Bed Mobility Rolling R/L: Mod Assist and 2 person assist Scooting: Mod Assist and 2 person assist Supine to Sit: Mod Assist and 2 person assist Sit to Supine: Mod Assist and 2 person assist Transfers Sit to Stand: Max Assist and 2 person assist Stand to Sit: Max Assist and 2 person assist Stand Pivot Transfers: Max Assist and 2 person assist Ambulation Weight Bearing Status: FWB Assistive Device Used: Rolling Walker Assistance needed with Ambulation: Max Assist and 2 person assist Comments:: Pt did not walk today. Pt did transfer stand pivot max assist x 2. Safety Awareness Safety Awareness: Fair JAME INDEX SCORE: . Additional Treatment Performed Time with patient Length of Evaluation: 30 Total treatment time: 33 Activities Do you enjoy playing games?: Yes Would you be interested in leaving your room for activities?: Yes Would you enjoy group activities?: Yes Do you have difficulty with your vision?: Yes Patient Interests:: Watching Television, Puzzles/Games and Visiting/Socializing Patient Education Patient Education: Home Exercise Program and Education of Plan of Care Teaching Recipient: Patient Teaching Methods: Teach Back Method Used and Discussion Assessment Problem List:: Decreased level of function, Requires training/education, Decreased safety/Risk of falls, Weakness and Pain limits previous level of function Rehab Potential: Good Further Therapy Indicated?: Yes Evaluation Complexity: HISTORY: Medium, EXAM OF BODY SYSTEMS: Medium and CLINICAL DECISION MAKING: Medium Patient's Goal(s): to get stronger in his legs so he can walk again. Short Term Goals Goals GOAL 1: Pt to sit in chair and feed himself with setup. Goal to be met by: 05/08/23 GOAL 2: Pt to increase sit to stand to moderate assistance with RW. Goal to be met by: 05/08/23 GOAL 3: Pt to stand from EOB for 5 minutes with one person. Goal to be met by: 05/08/23 GOAL 4: Pt to be setup to brush his teeth. Goal to be met by: 05/08/23 Boat Driver Goals GOAL 1: Pt to be independent with ADLS after setup. Goal to be met by: 05/11/23 GOAL 2: Pt to increase sit to stand to minimal assistance with RW to increase I. Goal to be met by: 05/11/23 GOAL 3: Pt to be I with donning his shirt. Goal to be met by: 05/11/23 Plan Plan of Care: Therapeutic EX, Neuromuscular Re-Educ, Therapeutic Activity and Self-Care/Home Management Frequency of Treatment: 1-2 X day, as tolerated Duration of Treatment: 1 Week Anticipated [facility] Treatment Diagnosis (ICD 10 Codes): weakness R53.1, Z74.1 Need for assistance with personal care. Has the Physician been added for Co-signature?: Yes
[2023-05-04] MEDS ORDERED: LASIX TAB PO SCH (06:30)
== END 2023-05-03 15:12 | DRG 291 ==
LOC: MEDSURG B 05:41 → ED 05:41 → OBSVTOIN 09:44 → MEDSURG B 10:45
PROVIDERS: ADMIT Hospitalist; ATTEND Nurse Practitioner Family
DX: I50.23 Acute on chronic systolic (congestive) heart failure; R33.9 Retention of urine, unspecified; R74.01 Elevation of levels of liver transaminase levels; J96.01 Acute respiratory failure with hypoxia; Z20.822 Contact with and (suspected) exposure to COVID-19

== ENCOUNTER 2023-05-09 15:44 | Inpatient (IN) ==
[2023-05-09 16:00] VITALS: BMI 25.3
[2023-05-09] MEDS ORDERED: SODIUM CHLORIDE 250 ML IV ONE (16:16)
[2023-05-09] MEDS ORDERED: ULTRAM PO PRN (16:25)
[2023-05-09] MEDS ORDERED: DUONEB NEB PRN (16:25)
[2023-05-09] MEDS ORDERED: DULCOLAX RC PRN (16:25)
[2023-05-09] MEDS ORDERED: LASIX TAB PO PRN (16:25)
[2023-05-09] MEDS ORDERED: NITROSTAT SL PRN (16:33)
[2023-05-09] MEDS ORDERED: ATROPINE SULFATE PFS IVP PRN (16:33)
[2023-05-09] MEDS: VANCOMYCIN 1.25 GM/250 ML BAG 1.25 GM/250 ML BAG IV SCH (16:37)
[2023-05-09] MEDS ORDERED: SODIUM CHLORIDE 500 ML IV ONE ×2 (16:44→16:46)
[2023-05-09] MEDS ORDERED: SODIUM CHLORIDE 1,000 ML IV SCH (17:00)
[2023-05-09 17:01] LABS: BASOPHILS % (AUTO) 0.5 % (0.0-3.0); EOSINOPHILS # (AUTO) 0.1 K/ul (0.0-0.7); EOSINOPHILS % (AUTO) 1.4 % (0.0-7.0); HEMATOCRIT 33.7 % (42.0-52.0); HEMOGLOBIN 10.8 g/dl (14.0-18.0); IMMATURE GRANULOCYTE # (AUTO) 0.1 (0.0-1.0); IMMATURE GRANULOCYTE % (AUTO) 0.6 % (0.0-5.0); LYMPHOCYTES # (AUTO) 1.1 K/uL (0.60-3.4); MEAN CORPUSCULAR HEMOGLOBIN 29.5 pg (27.0-31.0); MEAN CORPUSCULAR VOLUME 92.1 fl (80.0-94.0); MONOCYTES # (AUTO) 0.6 K/uL (0.4-2.0); MONOCYTES % (AUTO) 6.4 (0-10); NEUTROPHILS % (AUTO) 79.1 % (42.2-75.2); PLATELET COUNT 277 10^3/uL (140-440); RED BLOOD COUNT 3.66 10^6/ul (4.70-6.10); WHITE BLOOD COUNT 8.78 K/ul (4.2-10.2)
[2023-05-09 17:01] LABS: ABG O2 HGB 94.6 % (95-100); BEecf 2.5 (-2.0-3.0); COHb 1.9 (0.5-1.5); HCO3 25.5 (21-28); MetHb 1.1 (0-1.5); TCO2 26.5 (19-24); sO2 96.2 % (94-98); tHb 10.7 g/dl (11.7-17.4)
[2023-05-09 17:03] LABS: ABG PH 7.51 (7.35-7.45)
[2023-05-09 17:12] LABS: ALANINE AMINOTRANSFERASE 43.1 U/L (0-50); ALBUMIN 3.96 g/dL (3.5-5.0); ALKALINE PHOSPHATASE 82.3 U/L (56-119); BILIRUBIN,TOTAL 0.79 mg/dL (0.2-1.3); BLOOD UREA NITROGEN 23.3 mg/dL (9-20); CALCIUM 9.14 mg/dL (8.4-10.2); CARBON DIOXIDE 25.8 mmol/L (22-30.0); CHLORIDE 102.8 mmol/L (98-107); CREATININE 1.47 mg/dL (0.60-1.10); GLUCOSE 104.5 mg/dL (74-106); POTASSIUM 4.23 mmol/L (3.5-5.1); TOTAL PROTEIN 7.39 g/dL (6.3-8.2)
[2023-05-09] MEDS: ROCEPHIN 1 GM/50 ML D5W 1 GM/50 ML BAG IV SCH (18:31)
[2023-05-09] MEDS: FLOMAX PO SCH (18:31)
--- NOTE | 2023-05-09 18:55 | DI ---
EXAM: FRONTAL VIEW OF THE CHEST. HISTORY: Shortness of breath COMPARISON: Chest radiograph 05/01/2023. FINDINGS: Stable biventricular pacer/ICD with generator on the left side. Mild cardiomegaly, probably exaggerated due to hypoinflation of the lungs. Atherosclerotic calcificat ions of the aorta. Hypoinflated lungs. Band-like opacities in the left lower lobe and right upper lobe. No visible large pleural effusion or pneumothorax. Bones appear diffusely demineralized. IMPRESSION: Hypoinflated lungs. Mild atelectasis at the left base. Right upper lobe opacities could also repres ent atelectasis or developing pneumonia.
[2023-05-09] MEDS: MIRAPEX PO SCH ×2 (20:24→20:25)
[2023-05-09] MEDS: ENTRESTO 24 MG-26 MG TABLET PO SCH (20:25)
[2023-05-09] MEDS: XANAX PO PRN (20:25)
[2023-05-09] MEDS: MIDODRINE PO SCH (20:46)
[2023-05-09] MEDS ORDERED: ATIVAN IVP ONE (23:17)
[2023-05-10] MEDS ORDERED: BENADRYL 25 MG in SODIUM CHLORIDE 100ML 100 ML IV ONE (01:22)
[2023-05-10] MEDS ORDERED: BENADRYL ONE (01:42)
[2023-05-10 05:26] LABS: BASOPHILS % (AUTO) 0.3 % (0.0-3.0); EOSINOPHILS # (AUTO) 0.4 K/ul (0.0-0.7); EOSINOPHILS % (AUTO) 4.3 % (0.0-7.0); HEMATOCRIT 34.2 % (42.0-52.0); HEMOGLOBIN 10.7 g/dl (14.0-18.0); IMMATURE GRANULOCYTE # (AUTO) 0.1 (0.0-1.0); IMMATURE GRANULOCYTE % (AUTO) 0.7 % (0.0-5.0); LYMPHOCYTES % (AUTO) 20.1 (10.0-50.0); MEAN CORPUSCULAR HEMOGLOBIN 28.8 pg (27.0-31.0); MEAN CORPUSCULAR HGB CONC 31.3 (31.8-35.4); MEAN CORPUSCULAR VOLUME 91.9 fl (80.0-94.0); MONOCYTES # (AUTO) 0.7 K/uL (0.4-2.0); MONOCYTES % (AUTO) 7.2 (0-10); NEUTROPHILS # (AUTO) 6.7 K/ul (2.0-6.9); NEUTROPHILS % (AUTO) 67.4 % (42.2-75.2); PLATELET COUNT 248 10^3/uL (140-440); RED BLOOD COUNT 3.72 10^6/ul (4.70-6.10); WHITE BLOOD COUNT 9.89 K/ul (4.2-10.2)
[2023-05-10 05:45] LABS: ALANINE AMINOTRANSFERASE 39.6 U/L (0-50); ALBUMIN 3.64 g/dL (3.5-5.0); ALKALINE PHOSPHATASE 78.9 U/L (56-119); ASPARTATE AMINO TRANSFERASE 41.5 U/L (17-59); BILIRUBIN,TOTAL 0.72 mg/dL (0.2-1.3); BLOOD UREA NITROGEN 20.1 mg/dL (9-20); CALCIUM 8.85 mg/dL (8.4-10.2); CHLORIDE 104.5 mmol/L (98-107); CREATININE 1.35 mg/dL (0.60-1.10); GLUCOSE 95.2 mg/dL (74-106); POTASSIUM 4.55 mmol/L (3.5-5.1); SODIUM 135.8 mmol/L (134.5-145); TOTAL PROTEIN 6.76 g/dL (6.3-8.2)
[2023-05-10] MEDS: MIDODRINE PO SCH ×3 (08:38→20:02)
[2023-05-10] MEDS: VITAMIN D PO SCH (08:38)
[2023-05-10] MEDS: ROCEPHIN 1 GM/50 ML D5W 1 GM/50 ML BAG IV SCH (08:38)
[2023-05-10] MEDS: MULTIVITAMIN TABLET PO SCH (08:39)
[2023-05-10] MEDS: LEXAPRO PO SCH (08:40)
[2023-05-10] MEDS: PROSCAR PO SCH (08:40)
[2023-05-10] MEDS: MIRAPEX PO SCH ×6 (08:40→20:01)
[2023-05-10] MEDS: LIPITOR PO SCH (08:41)
[2023-05-10] MEDS: TOPROL XL PO SCH (08:41)
[2023-05-10] MEDS: PROTONIX PO SCH (08:41)
[2023-05-10] MEDS ORDERED: NON-FORMULARY MEDICATION (Multivitamin-Minerals-Lutein Tablet) PO SCH (09:00)
[2023-05-10] MEDS: VANCOMYCIN 1.25 GM/250 ML BAG 1.25 GM/250 ML BAG IV SCH (10:15)
[2023-05-10] MEDS: TYLENOL PO PRN (13:55)
[2023-05-10] MEDS: FLOMAX PO SCH (16:49)
[2023-05-10] MEDS: ENTRESTO 24 MG-26 MG TABLET PO SCH (20:02)
[2023-05-10] MEDS: XANAX PO PRN (20:02)
[2023-05-11 05:00] LABS: BASOPHILS % (AUTO) 0.4 % (0.0-3.0); EOSINOPHILS # (AUTO) 0.4 K/ul (0.0-0.7); EOSINOPHILS % (AUTO) 4.8 % (0.0-7.0); HEMATOCRIT 34.7 % (42.0-52.0); HEMOGLOBIN 11.1 g/dl (14.0-18.0); IMMATURE GRANULOCYTE # (AUTO) 0.1 (0.0-1.0); IMMATURE GRANULOCYTE % (AUTO) 0.6 % (0.0-5.0); LYMPHOCYTES % (AUTO) 21.9 (10.0-50.0); MEAN CORPUSCULAR VOLUME 90.6 fl (80.0-94.0); MONOCYTES # (AUTO) 0.6 K/uL (0.4-2.0); MONOCYTES % (AUTO) 6.5 (0-10); NEUTROPHILS # (AUTO) 5.9 K/ul (2.0-6.9); NEUTROPHILS % (AUTO) 65.8 % (42.2-75.2); PLATELET COUNT 243 10^3/uL (140-440); RDW COEFFICIENT OF VARIATION 14.1 % (11.6-14.8); RED BLOOD COUNT 3.83 10^6/ul (4.70-6.10); WHITE BLOOD COUNT 8.92 K/ul (4.2-10.2)
[2023-05-11 05:12] LABS: ALANINE AMINOTRANSFERASE 36.4 U/L (0-50); ALBUMIN 3.6 g/dL (3.5-5.0); ALKALINE PHOSPHATASE 83.9 U/L (56-119); ASPARTATE AMINO TRANSFERASE 36.4 U/L (17-59); BILIRUBIN,TOTAL 0.63 mg/dL (0.2-1.3); BLOOD UREA NITROGEN 17.5 mg/dL (9-20); CALCIUM 8.75 mg/dL (8.4-10.2); CARBON DIOXIDE 22.5 mmol/L (22-30.0); CHLORIDE 106.9 mmol/L (98-107); CREATININE 1.27 mg/dL (0.60-1.10); GLUCOSE 107.3 mg/dL (74-106); POTASSIUM 4.12 mmol/L (3.5-5.1); TOTAL PROTEIN 6.78 g/dL (6.3-8.2)
[2023-05-11] MEDS: PROTONIX PO SCH (05:51)
--- NOTE | 2023-05-11 08:17 | PCM.PROG ---
Attending Provider: ATTENDING PROVIDER: Dr. MARYLOU CALLAHAN MD This patient is seen with Huong Escobar, Nurse Practitioner. DATE OF SERVICE: 05/11/23 SUBJECTIVE: This 82 year old /WHITE M was hospitalized 05/09/23. Final urine culture showed positive pseudomonas and Klebsiella. Spoke with pharmacy and we will discontinue Rocephin and Vancomycin and place on IV Cefepime. Labs seem to be stable. He is pleasantly confused this morning. Respiratory status is stable. REVIEW OF SYSTEMS: CONSTITUTIONAL: No night sweats. No fatigue, malaise, lethargy. No fever or chills. HEENT: Eyes: No visual changes. No eye pain. No eye discharge. ENT: No runny nose. No epistaxis. No sinus pain. No odynophagia. No congestion. RESPIRATORY: No cough, no congestion. No hemoptysis. No shortness of breath. CARDIOVASCULAR: No angina symptoms. No CHF symptoms. No atypical chest pain for CAD. No palpitations. No orthopnea.. GASTROINTESTINAL: No abdominal pain. No nausea or vomiting. No diarrhea or constipation. No hematemesis. No hematochezia. GENITOURINARY: No urgency. No frequency. No dysuria. No hematuria. No obstructive symptoms. No discharge. No pain. No significant abnormal bleeding. MUSCULOSKELETAL: No musculoskeletal pain; no joint swelling. Generalized weakness. NEUROLOGICAL: Awake, alert, intermittent confusion. No headache. No neck pain. No syncope. No seizures. No dizziness. PSYCHIATRIC: Not anxious. No depression. No suicidal thoughts. No homicidal tho ughts. SKIN: No rash. No lesions. No wounds. ENDOCRINE: No unexplained weight loss. No weight gain. HEMATOLOGIC/LYMPHATIC: No anemia. No purpura. No petechiae. No prolonged or excessive bleeding. No palpable lymph nodes. PHYSICAL EXAMINATION: GENERAL: The patient is awake, alert and oriented to person only, lying in bed in no distress. VITAL SIGNS: Temperature 96.1 F, Pulse 80, Respiratory Rate 16, BP 108/64, Pulse Ox 95% HEENT: Head normocephalic, atraumatic. Eyes: Extraocular muscles are intact. Pupils are equal, round and reactive to light and accommodation. Ears: No lesions. Nose appeared normal. Throat: No exudate or erythema. NECK: Supple. No JVD, no carotid bruit. No lymphadenopathy or thyromegaly. LUNGS: Diminished breath sounds. Clear to auscultation. Percussion note normal. Chest symmetrical. HEART: S1, S2, no S3. No murmurs. No cyanosis or clubbing. No ascites. Pulses: Dorsalis pedis and posterior tibial pulses +1 to +2 both sides. ABDOMEN: Soft. Non-tender. Bowel sounds active. No CVA tenderness. No mass felt. EXTREMITIES: No edema. Full range of motion of all extremities, equal. NEUROLOGIC: No focal deficit. Cranial nerves II through XII are grossly intact. No headache. No double vision. SKIN: Not dry. Intact. Turgor-normal. LYMPHATIC: No palpable lymph nodes/no lymphedema. MUSCULOSKELETAL: Normal joints with no swelling. Muscle tone is normal. LAB REVIEW: 05/11/23 04:48 05/11/23 04:48 05/11/23 04:48: WBC 8.92, RBC 3.83 L, Hgb 11.1 L, Hct 34.7 L, MCV 90.6, MCH 29.0, MCHC 32.0, RDW Coeff of Ade 14.1, Plt Count 243, Immature Gran % (Auto) 0.6, Neut % (Auto) 65.8, Lymph % (Auto) 21.9, Tompkins % (Auto) 6.5, Eos % (Auto) 4.8, Baso % (Auto) 0.4, Neut # (Auto) 5.9, Lymph # (Auto) 2.0, [place] # (Auto) 0.6, Eos # (Auto) 0.4, Baso # (Auto) 0.0, Immature Gran # (Auto) 0.1, Sodium 136.0, Potassium 4.12, Chloride 106.9, Carbon Dioxide 22.5, Anion Gap 10.72, BUN 17.5, Creatinine 1.27 H, Estimated GFR (MDRD) 54.00, BUN/Creatinine Ratio 13.77, Glucose 107.3 H, Calcium 8.75, Total Bilirubin 0.63, AST 36.4, ALT 36.4, Alkaline Phosphatase 83.9, Total Protein 6.78, Albumin 3.60, Globulin 3.18, Albumin/Globulin Ratio 1.13 ASSESSMENT: Please see below. 1. UTI positive Klebsiella and pseudomonas 2. Dehydration, improved 3. Severe CHF with reduced ejection fraction 4. Dementia PLAN: 1. Discontinue Rocephin and Vancomycin 2. IV Cefepime 3. Fall precautions 4. To be noted after discussion with pharmacy at time of discharge we will discharge home on PO Levaquin. Plan and coordination of the patient's care discussed in the presence of Cooker Syrup and nurse. SCRIBED BY: Chepe OVALLE scribed while in presence of service performed by Huong Escobar APRN on 05/11/23 ([id number])
[2023-05-11] MEDS: MIDODRINE PO SCH ×3 (08:38→20:30)
[2023-05-11] MEDS: MIRAPEX PO SCH ×6 (08:40→20:30)
[2023-05-11] MEDS: TOPROL XL PO SCH (08:43)
[2023-05-11] MEDS: LEXAPRO PO SCH (08:44)
[2023-05-11] MEDS: PROSCAR PO SCH (08:46)
[2023-05-11] MEDS: MULTIVITAMIN TABLET PO SCH (08:46)
[2023-05-11] MEDS: VITAMIN D PO SCH (08:47)
[2023-05-11] MEDS: MAXIPIME 2 GM/50 ML D5W 2 GM/50 ML BAG IV SCH ×2 (08:49→20:29)
[2023-05-11] MEDS: LIPITOR PO SCH (09:08)
[2023-05-11] MEDS: MEGACE PO SCH ×2 (12:35→20:29)
[2023-05-11] MEDS: DIFLUCAN PO SCH (12:35)
[2023-05-11] MEDS: NYSTOP POWDER TP SCH ×3 (12:35→20:31)
[2023-05-11] MEDS: FLOMAX PO SCH (16:54)
[2023-05-11] MEDS: XANAX PO PRN (20:29)
[2023-05-11] MEDS: ENTRESTO 24 MG-26 MG TABLET PO SCH (20:29)
[2023-05-12] MEDS: PROTONIX PO SCH (05:41)
[2023-05-12 05:42] LABS: BASOPHILS % (AUTO) 0.4 % (0.0-3.0); EOSINOPHILS # (AUTO) 0.2 K/ul (0.0-0.7); EOSINOPHILS % (AUTO) 2.5 % (0.0-7.0); HEMOGLOBIN 10.4 g/dl (14.0-18.0); IMMATURE GRANULOCYTE # (AUTO) 0.1 (0.0-1.0); IMMATURE GRANULOCYTE % (AUTO) 0.8 % (0.0-5.0); LYMPHOCYTES # (AUTO) 1.3 K/uL (0.60-3.4); MEAN CORPUSCULAR HEMOGLOBIN 28.3 pg (27.0-31.0); MEAN CORPUSCULAR HGB CONC 31.5 (31.8-35.4); MEAN CORPUSCULAR VOLUME 89.7 fl (80.0-94.0); MONOCYTES # (AUTO) 0.5 K/uL (0.4-2.0); MONOCYTES % (AUTO) 6.1 (0-10); NEUTROPHILS # (AUTO) 6.5 K/ul (2.0-6.9); NEUTROPHILS % (AUTO) 75.2 % (42.2-75.2); PLATELET COUNT 246 10^3/uL (140-440); RDW COEFFICIENT OF VARIATION 13.9 % (11.6-14.8); RED BLOOD COUNT 3.68 10^6/ul (4.70-6.10); WHITE BLOOD COUNT 8.56 K/ul (4.2-10.2)
[2023-05-12 05:59] LABS: ALANINE AMINOTRANSFERASE 33.3 U/L (0-50); ALBUMIN 3.56 g/dL (3.5-5.0); ALKALINE PHOSPHATASE 75.8 U/L (56-119); ASPARTATE AMINO TRANSFERASE 32.8 U/L (17-59); BILIRUBIN,TOTAL 0.65 mg/dL (0.2-1.3); CALCIUM 8.83 mg/dL (8.4-10.2); CREATININE 1.25 mg/dL (0.60-1.10); GLUCOSE 104.5 mg/dL (74-106); POTASSIUM 3.91 mmol/L (3.5-5.1); TOTAL PROTEIN 6.57 g/dL (6.3-8.2)
[2023-05-12] MEDS: MIRAPEX PO SCH ×6 (08:10→20:16)
[2023-05-12] MEDS: LEXAPRO PO SCH (08:10)
[2023-05-12] MEDS: MIDODRINE PO SCH ×3 (08:10→20:16)
[2023-05-12] MEDS: TOPROL XL PO SCH (08:10)
[2023-05-12] MEDS: VITAMIN D PO SCH (08:10)
[2023-05-12] MEDS: PROSCAR PO SCH (08:10)
[2023-05-12] MEDS: MAXIPIME 2 GM/50 ML D5W 2 GM/50 ML BAG IV SCH ×2 (08:10→20:15)
[2023-05-12] MEDS: MEGACE PO SCH ×2 (08:11→20:16)
[2023-05-12] MEDS: MULTIVITAMIN TABLET PO SCH (08:11)
[2023-05-12] MEDS: LIPITOR PO SCH (08:11)
[2023-05-12] MEDS: DIFLUCAN PO SCH (08:11)
[2023-05-12] MEDS: NYSTOP POWDER TP SCH ×4 (08:12→20:15)
[2023-05-12] MEDS: FLOMAX PO SCH (16:28)
[2023-05-12] MEDS: XANAX PO PRN (20:16)
[2023-05-12] MEDS: ENTRESTO 24 MG-26 MG TABLET PO SCH (20:16)
[2023-05-13 05:29] LABS: ALANINE AMINOTRANSFERASE 31.6 U/L (0-50); ALBUMIN 3.38 g/dL (3.5-5.0); ALKALINE PHOSPHATASE 70.4 U/L (56-119); ASPARTATE AMINO TRANSFERASE 34.3 U/L (17-59); BILIRUBIN,TOTAL 0.64 mg/dL (0.2-1.3); BLOOD UREA NITROGEN 16.7 mg/dL (9-20); CALCIUM 8.86 mg/dL (8.4-10.2); CARBON DIOXIDE 23.5 mmol/L (22-30.0); CREATININE 1.25 mg/dL (0.60-1.10); POTASSIUM 3.63 mmol/L (3.5-5.1); SODIUM 135.3 mmol/L (134.5-145); TOTAL PROTEIN 6.31 g/dL (6.3-8.2)
[2023-05-13] MEDS: PROTONIX PO SCH (05:41)
[2023-05-13 06:08] LABS: BASOPHILS % (AUTO) 0.3 % (0.0-3.0); EOSINOPHILS # (AUTO) 0.2 K/ul (0.0-0.7); EOSINOPHILS % (AUTO) 3.1 % (0.0-7.0); HEMATOCRIT 32.5 % (42.0-52.0); HEMOGLOBIN 9.9 g/dl (14.0-18.0); IMMATURE GRANULOCYTE % (AUTO) 0.5 % (0.0-5.0); LYMPHOCYTES # (AUTO) 0.7 K/uL (0.60-3.4); LYMPHOCYTES % (AUTO) 11.5 (10.0-50.0); MEAN CORPUSCULAR HEMOGLOBIN 27.7 pg (27.0-31.0); MEAN CORPUSCULAR HGB CONC 30.5 (31.8-35.4); MEAN CORPUSCULAR VOLUME 90.8 fl (80.0-94.0); MONOCYTES # (AUTO) 0.5 K/uL (0.4-2.0); MONOCYTES % (AUTO) 7.7 (0-10); NEUTROPHILS % (AUTO) 76.9 % (42.2-75.2); PLATELET COUNT 246 10^3/uL (140-440); RED BLOOD COUNT 3.58 10^6/ul (4.70-6.10); WHITE BLOOD COUNT 6.46 K/ul (4.2-10.2)
[2023-05-13] MEDS: MAXIPIME 2 GM/50 ML D5W 2 GM/50 ML BAG IV SCH ×2 (09:18→20:02)
[2023-05-13] MEDS: MIDODRINE PO SCH ×3 (09:21→20:00)
[2023-05-13] MEDS: TOPROL XL PO SCH (09:22)
[2023-05-13] MEDS: PROSCAR PO SCH (09:22)
[2023-05-13] MEDS: MEGACE PO SCH ×2 (09:23→20:01)
[2023-05-13] MEDS: MULTIVITAMIN TABLET PO SCH (09:24)
[2023-05-13] MEDS: LIPITOR PO SCH (09:24)
[2023-05-13] MEDS: LEXAPRO PO SCH (09:24)
[2023-05-13] MEDS: VITAMIN D PO SCH (09:24)
[2023-05-13] MEDS: MIRAPEX PO SCH ×6 (09:25→20:01)
[2023-05-13] MEDS: NYSTOP POWDER TP SCH ×4 (09:27→20:02)
[2023-05-13] MEDS ORDERED: HALDOL PO PRN (13:38)
[2023-05-13] MEDS: TYLENOL PO PRN (14:26)
[2023-05-13] MEDS: FLOMAX PO SCH (16:38)
[2023-05-13] MEDS: ENTRESTO 24 MG-26 MG TABLET PO SCH (20:00)
[2023-05-13] MEDS: ATIVAN PO SCH (21:03)
[2023-05-14 05:04] LABS: BASOPHILS % (AUTO) 0.4 % (0.0-3.0); EOSINOPHILS # (AUTO) 0.4 K/ul (0.0-0.7); HEMOGLOBIN 9.5 g/dl (14.0-18.0); IMMATURE GRANULOCYTE # (AUTO) 0.1 (0.0-1.0); IMMATURE GRANULOCYTE % (AUTO) 0.7 % (0.0-5.0); LYMPHOCYTES # (AUTO) 1.1 K/uL (0.60-3.4); LYMPHOCYTES % (AUTO) 15.1 (10.0-50.0); MEAN CORPUSCULAR HEMOGLOBIN 27.9 pg (27.0-31.0); MEAN CORPUSCULAR HGB CONC 30.6 (31.8-35.4); MEAN CORPUSCULAR VOLUME 91.2 fl (80.0-94.0); MONOCYTES # (AUTO) 0.6 K/uL (0.4-2.0); MONOCYTES % (AUTO) 7.6 (0-10); NEUTROPHILS # (AUTO) 5.2 K/ul (2.0-6.9); NEUTROPHILS % (AUTO) 71.2 % (42.2-75.2); PLATELET COUNT 209 10^3/uL (140-440); RDW COEFFICIENT OF VARIATION 14.3 % (11.6-14.8); WHITE BLOOD COUNT 7.23 K/ul (4.2-10.2)
[2023-05-14 05:29] LABS: ALANINE AMINOTRANSFERASE 29.3 U/L (0-50); ALBUMIN 3.22 g/dL (3.5-5.0); ALKALINE PHOSPHATASE 62.4 U/L (56-119); ASPARTATE AMINO TRANSFERASE 34.5 U/L (17-59); BILIRUBIN,TOTAL 0.46 mg/dL (0.2-1.3); CALCIUM 9.01 mg/dL (8.4-10.2); CARBON DIOXIDE 24.8 mmol/L (22-30.0); CHLORIDE 108.3 mmol/L (98-107); CREATININE 1.39 mg/dL (0.60-1.10); GLUCOSE 102.3 mg/dL (74-106); POTASSIUM 4.07 mmol/L (3.5-5.1); SODIUM 136.8 mmol/L (134.5-145); TOTAL PROTEIN 6.1 g/dL (6.3-8.2)
[2023-05-14] MEDS: PROTONIX PO SCH (05:40)
[2023-05-14] MEDS: LIPITOR PO SCH (08:52)
[2023-05-14] MEDS: MULTIVITAMIN TABLET PO SCH (08:52)
[2023-05-14] MEDS: MIDODRINE PO SCH ×3 (08:52→20:19)
[2023-05-14] MEDS: VITAMIN D PO SCH (08:52)
[2023-05-14] MEDS: MAXIPIME 2 GM/50 ML D5W 2 GM/50 ML BAG IV SCH ×2 (08:52→20:19)
[2023-05-14] MEDS: LEXAPRO PO SCH (08:52)
[2023-05-14] MEDS: MEGACE PO SCH ×2 (08:52→20:19)
[2023-05-14] MEDS: TOPROL XL PO SCH (08:53)
[2023-05-14] MEDS: MIRAPEX PO SCH ×6 (08:53→20:20)
[2023-05-14] MEDS: PROSCAR PO SCH (08:53)
[2023-05-14] MEDS: NYSTOP POWDER TP SCH ×4 (08:54→20:22)
[2023-05-14] MEDS: FLOMAX PO SCH (16:09)
[2023-05-14] MEDS: ENTRESTO 24 MG-26 MG TABLET PO SCH (20:19)
[2023-05-14] MEDS: ATIVAN PO SCH (20:21)
[2023-05-14] MEDS: HALDOL PO PRN (23:51)
[2023-05-15 05:01] LABS: BASOPHILS % (AUTO) 0.4 % (0.0-3.0); EOSINOPHILS # (AUTO) 0.2 K/ul (0.0-0.7); EOSINOPHILS % (AUTO) 1.6 % (0.0-7.0); HEMATOCRIT 33.2 % (42.0-52.0); HEMOGLOBIN 10.2 g/dl (14.0-18.0); IMMATURE GRANULOCYTE # (AUTO) 0.1 (0.0-1.0); IMMATURE GRANULOCYTE % (AUTO) 0.7 % (0.0-5.0); LYMPHOCYTES # (AUTO) 1.5 K/uL (0.60-3.4); LYMPHOCYTES % (AUTO) 14.3 (10.0-50.0); MEAN CORPUSCULAR HEMOGLOBIN 27.6 pg (27.0-31.0); MEAN CORPUSCULAR HGB CONC 30.7 (31.8-35.4); MEAN CORPUSCULAR VOLUME 89.7 fl (80.0-94.0); MONOCYTES # (AUTO) 0.7 K/uL (0.4-2.0); MONOCYTES % (AUTO) 6.2 (0-10); NEUTROPHILS # (AUTO) 8.1 K/ul (2.0-6.9); NEUTROPHILS % (AUTO) 76.8 % (42.2-75.2); PLATELET COUNT 228 10^3/uL (140-440); RDW COEFFICIENT OF VARIATION 14.4 % (11.6-14.8); WHITE BLOOD COUNT 10.52 K/ul (4.2-10.2)
[2023-05-15 05:14] LABS: ALANINE AMINOTRANSFERASE 32.9 U/L (0-50); ALBUMIN 3.68 g/dL (3.5-5.0); ALKALINE PHOSPHATASE 81.4 U/L (56-119); ASPARTATE AMINO TRANSFERASE 35.5 U/L (17-59); BILIRUBIN,TOTAL 0.8 mg/dL (0.2-1.3); BLOOD UREA NITROGEN 26.6 mg/dL (9-20); CALCIUM 9.23 mg/dL (8.4-10.2); CARBON DIOXIDE 19.2 mmol/L (22-30.0); CHLORIDE 107.5 mmol/L (98-107); CREATININE 1.27 mg/dL (0.60-1.10); GLUCOSE 108.8 mg/dL (74-106); POTASSIUM 3.98 mmol/L (3.5-5.1); TOTAL PROTEIN 6.85 g/dL (6.3-8.2)
[2023-05-15] MEDS: PROTONIX PO SCH (05:46)
--- NOTE | 2023-05-15 08:56 | PCM.PROG ---
Attending Provider: ATTENDING PROVIDER: Dr. MARYLOU CALLAHAN MD This patient is seen with Huong Escobar, Nurse Practitioner. DATE OF SERVICE: 05/15/23 SUBJECTIVE: This 82 year old /WHITE M was hospitalized 05/09/23. Has been eating better. Labs seem to be stable. Still very weak. Will do PT/OT consult today to see for potential swing bed placement. We will continue with IV Cefepime. Renal function is tolerating this well. REVIEW OF SYSTEMS: CONSTITUTIONAL: No night sweats. No fatigue, malaise, lethargy. No fever or chills. Weakness. HEENT: Eyes: No visual changes. No eye pain. No eye discharge. ENT: No runny nose. No epistaxis. No sinus pain. No odynophagia. No congestion. RESPIRATORY: No cough, no congestion. No hemoptysis. No shortness of breath. CARDIOVASCULAR: No angina symptoms. No CHF symptoms. No atypical chest pain for CAD. No palpitations. No orthopnea.. GASTROINTESTINAL: No abdominal pain. No nausea or vomiting. No diarrhea or constipation. No hematemesis. No hematochezia. GENITOURINARY: No urgency. No frequency. No dysuria. No hematuria. No obstructive symptoms. No discharge. No pain. No significant abnormal bleeding. MUSCULOSKELETAL: No musculoskeletal pain; no joint swelling. NEUROLOGICAL: Awake, alert, intermittent confusion. No headache. No neck pain. No syncope. No seizures. No dizziness. PSYCHIATRIC: Not anxious. No depression. No suicidal thoughts. No homicidal thoughts. SKIN: No rash. No lesions. No wounds. ENDOCRINE: No unexplained weight loss. No weight gain. HEMATOLOGIC/LYMPHATIC: No anemia. No purpura. No petechiae. No prolonged or excessive bleeding. No palpable lymph nodes. PHYSICAL EXAMINATION: GENERAL: The patient is awake, alert and oriented to person and place, lying in bed in no distress. VITAL SIGNS: Temperature 97.1 F, Pulse 99, Respiratory Rate 20, BP 98/62, Pulse Ox 94% HEENT: Head normocephalic, atraumatic. Eyes: Extraocular muscles are intact. Pupils are equal, round and reactive to light and accommodation. Ears: No lesions. Nose appeared normal. Throat: No exudate or erythema. NECK: Supple. No JVD, no carotid bruit. No lymphadenopathy or thyromegaly. LUNGS: Diminished breath sounds. Clear to auscultation. Percussion note normal. Chest symmetrical. HEART: S1, S2, no S3. No murmurs. No cyanosis or clubbing. No ascites. Pulses: Dorsalis pedis and posterior tibial pulses +1 to +2 both sides. ABDOMEN: Soft. Non-tender. Bowel sounds active. No CVA tenderness. No mass felt. EXTREMITIES: No edema. Full range of motion of all extremities, equal. NEUROLOGIC: No focal deficit. Cranial nerves II through XII are grossly intact. No headache. No double vision. SKIN: Not dry. Intact. Turgor-normal. LYMPHATIC: No palpable lymph nodes/no lymphedema. MUSCULOSKELETAL: Normal joints with no swelling. Muscle tone is normal. LAB REVIEW: 05/15/23 04:40 05/15/23 04:40 05/15/23 04:40: WBC 10.52 H, RBC 3.70 L, Hgb 10.2 L, Hct 33.2 L, MCV 89.7, MCH 27.6, MCHC 30.7 L, RDW Coeff of Ade 14.4, Plt Count 228, Immature Gran % (Auto) 0.7, Neut % (Auto) 76.8 H, Lymph % (Auto) 14.3, [place] % (Auto) 6.2, Eos % (Auto) 1.6, Baso % (Auto) 0.4, Neut # (Auto) 8.1 H, Lymph # (Auto) 1.5, [place] # (Auto) 0.7, Eos # (Auto) 0.2, Baso # (Auto) 0.0, Immature Gran # (Auto) 0.1, Sodium 136.0, Potassium 3.98, Chloride 107.5 H, Carbon Dioxide 19.2 L, Anion Gap 13.28, BUN 26.6 H, Creatinine 1.27 H, Estimated GFR (MDRD) 54.00, BUN/Creatinine Ratio 20.94, Glucose 108.8 H, Calcium 9.23, Total Bilirubin 0.80, AST 35.5, ALT 32.9, Alkaline Phosphatase 81.4, Total Protein 6.85, Albumin 3.68, Globulin 3.17, Albumin/Globulin Ratio 1.16 ASSESSMENT: Please see below. 1. UTI, positive Klebsiella and positive Proteus. 2. Dehydration 3. Underline CKD stage 3 4. Failure to thrive 5. Hypotension 6. Endstage CHF with reduced ejection fraction PLAN: 1. 20mg Lasix today PO 2. Weigh today 3. Continue IV Cefepime 4. Possible discharge planning has been discussed, evaluation for possible swing bed placement versus residential. Plan and coordination of the patient's care discussed in the presence of Zipper Sewing Machine Operator and nurse. SCRIBED BY: Donte OVALLEist scribed while in presence of service performed by Huong Escobar APRN on 05/15/23 ([id number])
[2023-05-15] MEDS: MAXIPIME 2 GM/50 ML D5W 2 GM/50 ML BAG IV SCH ×2 (09:52→20:20)
[2023-05-15] MEDS: MIRAPEX PO SCH ×6 (09:53→20:24)
[2023-05-15] MEDS: MIDODRINE PO SCH ×3 (09:54→20:20)
[2023-05-15] MEDS: VITAMIN D PO SCH (09:54)
[2023-05-15] MEDS: LIPITOR PO SCH (09:54)
[2023-05-15] MEDS: TOPROL XL PO SCH (09:54)
[2023-05-15] MEDS: XANAX PO PRN (09:54)
[2023-05-15] MEDS: MEGACE PO SCH ×2 (09:55→20:20)
[2023-05-15] MEDS: MULTIVITAMIN TABLET PO SCH (09:55)
[2023-05-15] MEDS: LEXAPRO PO SCH (09:55)
[2023-05-15] MEDS: PROSCAR PO SCH (09:55)
[2023-05-15] MEDS: NYSTOP POWDER TP SCH ×4 (09:59→20:20)
--- NOTE | 2023-05-15 12:07 | RS.PTINEVL ---
Subjective Patient information Date of Evaluation: 05/15/23 Date of Arrival on Unit: 05/09/23 Admitted From:: [facility] ([facility]) Diagnosis: UTI, dehydration, weakness, impaired balance Usual Living Arrangement: [facility] Living Arrangement Comments: pt has been in long term since approx 04/15/23 per . Home Environment: House (prior to the past month, has been in long term since April 2023) and Stairs (few) Medical History: CVA/TIA (R sided weakness), CHF and Arthritis Medical History Comments:: hypotension, CKD, Parkinson's disease Medications: see chart Subjective Information/ Patient Comments:: pt states that he is not hurting. pt's states that she would like him to stay here for swing bed to get therapy. Her ultimate goal is for patient to return home. Level of function Abilities prior to this admission: Since April 14, 2023 pt has been unable to walk and has been in and out of hospital/long term. Prior to that time pt was amb occasionally using cane independently. Current Level of Function: Dependent Interventions Objective Patient Orientation: Person and Place Current Interventions: IV's and Telemetry Observation: pt demonstrates low volume/decreased annunciation due to Parkinson's disease. pt with tremor noted in hands. Range of Motion ROM Right Upper Extremity AROM: Slight limitation (limited shld flex) Left Upper Extremity AROM: Slight limitation (limited shld flex) Right Lower Extremity AROM: Slight limitation (decreased knee flex, foot drop) Left Lower Extremity AROM: Slight limitation (decreased knee flex, foot drop) Muscle Strength Muscle Strength Right Upper Extremity: Mild Weakness (shld flex 3-/5, elbow flex/ext 4-/5) Left Upper Extremity: Mild Weakness (shld flex 3-/5, elbow flex/ext 4-/5) Right Lower Extremity: Mild Weakness (hip flex 3/5, knee flex/ext 3-/5, ankle DF 2-/5, PF 3/5) Left Lower Extremity: Mild Weakness (hip flex 3/5, knee flex/ext 3-/5, ankle DF 2-/5, PF 3/5) Sensation Sensation Right Upper Extremity: Intact/Normal Left Upper Extremity: Intact/Normal Right Lower Extremity: Intact/Normal Left Lower Extremity: Intact/Normal Palpation Palpation Findings: None/Normal Coordination Tests Bilateral: Finger to Nose: Moderate Deviation Heel to [place]: Marked/Severe Deviation (unable to perform ) Toe Tapping: Marked/Severe Deviation (unable to perform ) Balance Sitting Balance and Reactions Static Sitting Balance: Poor Dynamic Sitting Balance: Poor Sitting Equilibrium Reactions: Delayed Left and Delayed Right Sitting Protective Reactions: Delayed Left and Delayed Right Standing Balance and Reactions Static Standing Balance: Poor Dynamic Standing Balance: Poor Standing Equilibrium Reactions: Absent Left and Absent Right Standing Protective Reactions: Absent Left and Absent Right Comments Balance Assessment Comments: pt did not reach full stand Functional Mobility Bed Mobility Rolling R/L: Mod Assist, Max Assist and 1 person assist Scooting: Max Assist and 2 person assist Supine to Sit: Max Assist and 2 person assist Sit to Supine: Max Assist and 2 person assist Comments:: pt sat at side of bed. pt able to sit unsupported without challenges approx 1 min. pt pushes backward. Transfers Sit to Stand: Max Assist and 2 person assist Stand to Sit: Max Assist and 2 person assist Comments:: pt stood x 3 unable to reach full stand. pt pushes backward and difficulty extending hips. pt required max of 2 to scoot to head of bed. Safety Awareness Safety Awareness: Poor JAME INDEX SCORE: n/a Treatment time Time with patient Length of Evaluation: 24 Total treatment time: 38 Patient Education Education Patient Education: Activity Modification and Education of Plan of Care Teaching Recipient: Patient and Family () Teaching Methods: Discussion Assessment Assessment Problem List:: Decreased level of function, Requires training/education, Decreased safety/Risk of falls, Weakness and Cognitive status limits abilities Rehab Potential: Fair Further Therapy Indicated?: Yes Candidate for Swing Bed for Therapy Services?: Feel pt may not be a good candidate for swing. Meeting held and PT/OT will try to see pt to make functional progress. Evaluation Complexity: HISTORY: Medium, EXAM OF BODY SYSTEMS: Medium, CLINICAL PRESENTATION: Medium and CLINICAL DECISION MAKING: Medium Patient's Goal(s): To be able to walk and go home Short Term Goals GOAL #1: pt demonstrate rolling with bedrail mod x 1 Goal to be met by: 05/18/23 GOAL #2: Transfer sup to/from sit mod x 2 Goal to be met by: 05/18/23 GOAL #3: Transfer sit to/from stand mod x 2 Goal to be met by: 05/18/23 GOAL #4: Improve AAROM all 4 extr's WFL's Goal to be met by: 05/18/23 GOAL #5: pt able to maintain dyn sitting balance reaching away and across midline. Goal to be met by: 05/18/23 Public Health Technologist Goals GOAL #1: pt requires min x 1 rolling and positioning in bed. Goal to be met by: 05/22/23 GOAL #2: Transfer sup to/from sit to/from stand min x 2 Goal to be met by: 05/22/23 GOAL #3: pt transfer bed to/from chair min x 2 Goal to be met by: 05/22/23 Plan Plan of Care: Therapeutic EX, Neuromuscular Re-Educ and Therapeutic Activity Other:: transfer training progressing to gait training if appropriate. Frequency of Treatment: 1-2 X day, as tolerated Duration of Treatment: 1 Week Anticipated Discharge Destination: swing Treatment Diagnosis (ICD 10 Codes): impaired balance R 26.81 weakness M62.81 risk of falls Z91.81 Parkinsons disease Has the Physician been added for Co-signature?: Yes
--- NOTE | 2023-05-15 12:58 | RS.OTINEVL ---
Subjective Patient information Date of Evaluation: 05/15/23 Date of Arrival on Unit: 05/09/23 [facility] From[facility] Diagnosis: CHF PRECAUTIONS: Parkinson's Usual Living Arrangement: Prison Living Arrangement Comments: pt has been in jail since approx 04/15/23 per , has not received therapy yet due to having to return to hospital multiple times. Medical History: Hypertension, CVA/TIA (w R side weakness ), CHF and Arthritis Medical History Comments:: Parkinson's disease, Afib, hearing loss, CHF, Weak LE. LATEX ALLERGY?: No Surgical History Comments:: pacemaker, watchman L atrial appendage closure device Medications: see chart Subjective Information/ Patient Comments:: Pt reports he is ok after her stood x 2. Level of function Abilities prior to this admission: Pt is Max assist x 2 for supine to sit EOB. Pt is Max x 2 for sit to stand. Pt tries to follow cues. Current Level of Function: Partially Dependent Comments: Pt attempts to feed himself part of his meal and then the feeds him the rest of the meal. Current Equipment Used at Home: Rolling walker at home. Interventions Objective Patient Orientation: Person Current Interventions: IV's Observation: Pt is very stiff during the assessment. Pt is very limited in his AROM of BLE. Pt is able to complete AROM of BUE with limitations. Pt is able to complete shoulder flexion to 100 deg. Pt pushing back into extension when trying to standing. Pt has a difficult time bending his knees and ankles. Pt has stiff wrists intermittently. Interventions ROM Right Upper Extremity AROM: Moderate limitation Left Upper Extremity AROM: Moderate limitation Comments: Pt has limited shoulder flexion in BUE. Strength Right Upper Extremity: Mild Weakness Left Upper Extremity: Mild Weakness Sensation Right Upper Extremity: Intact/Normal Left Upper Extremity: Intact/Normal Balance Sitting Balance Dynamic Sitting Balance: Poor Standing Balance Static Standing Balance: Poor Dynamic Standing Balance: Poor Comments Balance Assessment Comments: Pt pushing into extension while trying to stand. ADL Skills Self Feeding Self Feeding: Min Assist Grooming Grooming: Min Assist Grooming Set-up: Sitting Bathing Bathing UE: Max Assist and 1 person assist Bathing LE: Max Assist and 1 person assist Bathing Set-up: Bedside Dressing Dressing UE: Max Assist and 1 person assist Dressing LE: Max Assist and 1 person assist Toilet Management Toilet Hygiene: Max Assist and 1 person assist Toilet Clothing Management: Max Assist and 1 person assist Functional Mobility Bed Mobility Rolling R/L: Max Assist and 2 person assist Scooting: Max Assist and 2 person assist Supine to Sit: Max Assist and 2 person assist Sit to Supine: Max Assist and 2 person assist Transfers Sit to Stand: Max Assist and 2 person assist Stand to Sit: Mod Assist Stand Pivot Transfers: Max Assist and 2 person assist Safety Awareness Safety Awareness: Fair JAME INDEX SCORE: . Additional Treatment Performed Time with patient Length of Evaluation: 20 Total treatment time: 25 Activities Do you enjoy playing games?: Yes Would you be interested in leaving your room for activities?: Yes Would you enjoy group activities?: Yes Do you have difficulty with your vision?: Yes Patient Interests:: Watching Television and Visiting/Socializing Patient Education Patient Education: Education of diagnosis, Body/Joint mechanics, Home Exercise Program, Home Safety and Education of Plan of Care Teaching Recipient: Patient and Family Teaching Methods: Teach Back Method Used, Discussion and Demonstration Assessment Problem List:: Decreased level of function, Requires training/education, Decreased safety/Risk of falls and Weakness Rehab Potential: Fair Candidate for Swing Bed for Therapy Services?: Pt is not a good candidate for swing bed due to his Parkinson's limiting his functional AROM. Pt has very stiff joints and is not able to stand without Max Assist x 2. Pt is Max A x 2 for bed mobility. Evaluation Complexity: HISTORY: Medium, EXAM OF BODY SYSTEMS: Medium and CLINICAL DECISION MAKING: Medium Patient's Goal(s): To be able to complete sit to stand I with RW and to complete toileting I in order to go home. Short Term Goals Goals GOAL 1: Pt to sit in chair and feed himself with setup. Goal to be met by: 05/18/23 GOAL 2: Pt to increase sit to stand to moderate assistance with RW. Goal to be met by: 05/18/23 GOAL 3: Pt to stand from EOB for 5 minutes with one person. Goal to be met by: 05/08/23 GOAL 4: Pt to be setup to brush his teeth. Goal to be met by: 05/19/23 Long-Term Goals GOAL 1: Pt to be independent with ADLs after setup. Goal to be met by: 05/22/23 GOAL 2: Pt to increase sit to stand to minimal assistance with RW to increase I. Goal to be met by: 05/22/23 GOAL 3: Pt to be I with toilet management. Goal to be met by: 05/22/23 Plan Plan of Care: Therapeutic EX, Neuromuscular Re-Educ, Therapeutic Activity and Self-Care/Home Management Frequency of Treatment: 1-2 X day, as tolerated Duration of Treatment: 2 Weeks Anticipated Discharge Destination: Long-Term Care Facility Treatment Diagnosis (ICD 10 Codes): G20 Parkinsons, Z74.1 Need for assistance with personal care, R27.8 Other lack of coordination Has the Physician been added for Co-signature?: Yes
[2023-05-15] MEDS ORDERED: LASIX IVP ONE (16:06)
--- NOTE | 2023-05-15 16:34 | DI ---
EXAM: FRONTAL VIEW OF THE CHEST. HISTORY: Shortness of breath. Congestive failure. COMPARISON: 05/09/2023 FINDINGS: Cardiac silhouette is stable.Pacing device is unchanged. Central vascular congestion. No organized infiltrate/consolidation. Right upper lobe opacity as noted on previous examination is l argely resolved. No visible effusion or pneumothorax. No acute osseous abnormality. IMPRESSION: 1. Vascular congestion.
[2023-05-15] MEDS: FLOMAX PO SCH (16:47)
[2023-05-15] MEDS: ENTRESTO 24 MG-26 MG TABLET PO SCH (20:20)
[2023-05-15] MEDS: ATIVAN PO SCH (20:23)
[2023-05-16 04:58] LABS: BASOPHILS % (AUTO) 0.3 % (0.0-3.0); EOSINOPHILS # (AUTO) 0.3 K/ul (0.0-0.7); EOSINOPHILS % (AUTO) 3.1 % (0.0-7.0); HEMATOCRIT 31.1 % (42.0-52.0); HEMOGLOBIN 9.7 g/dl (14.0-18.0); IMMATURE GRANULOCYTE # (AUTO) 0.1 (0.0-1.0); IMMATURE GRANULOCYTE % (AUTO) 0.6 % (0.0-5.0); LYMPHOCYTES # (AUTO) 1.1 K/uL (0.60-3.4); LYMPHOCYTES % (AUTO) 11.4 (10.0-50.0); MEAN CORPUSCULAR HGB CONC 31.2 (31.8-35.4); MEAN CORPUSCULAR VOLUME 89.6 fl (80.0-94.0); MONOCYTES # (AUTO) 0.8 K/uL (0.4-2.0); MONOCYTES % (AUTO) 7.7 (0-10); NEUTROPHILS # (AUTO) 7.5 K/ul (2.0-6.9); NEUTROPHILS % (AUTO) 76.9 % (42.2-75.2); PLATELET COUNT 213 10^3/uL (140-440); RDW COEFFICIENT OF VARIATION 14.5 % (11.6-14.8); RED BLOOD COUNT 3.47 10^6/ul (4.70-6.10); WHITE BLOOD COUNT 9.79 K/ul (4.2-10.2)
[2023-05-16 05:13] LABS: ALANINE AMINOTRANSFERASE 32.6 U/L (0-50); ALBUMIN 3.47 g/dL (3.5-5.0); ALKALINE PHOSPHATASE 69.6 U/L (56-119); ASPARTATE AMINO TRANSFERASE 40.9 U/L (17-59); BILIRUBIN,TOTAL 0.77 mg/dL (0.2-1.3); BLOOD UREA NITROGEN 29.7 mg/dL (9-20); CALCIUM 9.16 mg/dL (8.4-10.2); CARBON DIOXIDE 25.1 mmol/L (22-30.0); CHLORIDE 105.1 mmol/L (98-107); CREATININE 1.63 mg/dL (0.60-1.10); GLUCOSE 104.2 mg/dL (74-106); POTASSIUM 4.23 mmol/L (3.5-5.1); SODIUM 135.1 mmol/L (134.5-145); TOTAL PROTEIN 6.4 g/dL (6.3-8.2)
[2023-05-16] MEDS: PROTONIX PO SCH (05:41)
[2023-05-16] MEDS ORDERED: LASIX IVP ONE (09:00)
[2023-05-16] MEDS: MIRAPEX PO SCH ×6 (09:52→20:28)
[2023-05-16] MEDS: MIDODRINE PO SCH ×3 (09:52→20:28)
[2023-05-16] MEDS: MULTIVITAMIN TABLET PO SCH (09:54)
[2023-05-16] MEDS: LIPITOR PO SCH (09:54)
[2023-05-16] MEDS: MEGACE PO SCH ×2 (09:55→20:28)
[2023-05-16] MEDS: PROSCAR PO SCH (09:56)
[2023-05-16] MEDS: LEXAPRO PO SCH (09:56)
[2023-05-16] MEDS: VITAMIN D PO SCH (09:56)
[2023-05-16] MEDS: NYSTOP POWDER TP SCH ×4 (09:57→20:29)
[2023-05-16] MEDS: MAXIPIME 2 GM/50 ML D5W 2 GM/50 ML BAG IV SCH ×2 (09:57→20:13)
[2023-05-16] MEDS: TOPROL XL PO SCH (10:00)
--- NOTE | 2023-05-16 11:33 | PN ---
DATE OF SERVICE: 05/10/23 SUBJECTIVE: 82 year old white male hospitalized with fever, dehydration and UTI. The patient's condition seems to be somewhat better. Hydration status has improved but he has been very restless in the evening time. Today he is oriented to time, place and person. A little bit drowsy. The is present in the room. REVIEW OF SYSTEMS: CONSTITUTIONAL: No night sweats. No fatigue, malaise, lethargy. No fever or chills. HEENT: Eyes: No visual changes. No eye pain. No eye discharge. ENT: No runny nose. No epistaxis. No sinus pain. No sore throat. No odynophagia. No congestion. RESPIRATORY: No cough, no congestion. No hemoptysis. No shortness of breath. CARDIOVASCULAR: No angina symptoms. No CHF symptoms. No atypical chest pain for CAD. No palpitations. No PND. No orthopnea. GASTROINTESTINAL: No abdominal pain. No nausea or vomiting. No diarrhea or constipation. No hematemesis. No hematochezia. GENITOURINARY: No urgency. No frequency. No dysuria. No hematuria. No obstructive symptoms. No discharge. No pain. No significant abnormal bleeding. MUSCULOSKELETAL: No musculoskeletal pain; no joint swelling. NEUROLOGICAL: No headache. No neck pain. No syncope. No seizures. No dizziness. PSYCHIATRIC: Not anxious. No depression. No suicidal thoughts. No homicidal thoughts. SKIN: No rash. No lesions. No wounds. ENDOCRINE: No unexplained weight loss. No weight gain. HEMATOLOGIC/LYMPHATIC: No anemia. No purpura. No petechiae. No prolonged or excessive bleeding. No palpable lymph nodes. PHYSICAL EXAMINATION: GENERAL: The patient seems to be oriented to person and place. VITAL SIGNS: Temperature 98.4, pulse 80, respiratory rate 15, blood pressure 90/60 and pulse ox 94%. HEENT: Head normocephalic, atraumatic. Eyes: Extraocular muscles are intact. Pupils are equal, round and reactive to light and accommodation. Ears: No lesions. Nose appeared normal. Throat: No exudate or erythema. NECK: Supple. No JVD, no carotid bruit. No lymphadenopathy or thyromegaly. LUNGS: Decreased breath sounds with few dry crepitation. Percussion note normal. Chest symmetrical. HEART: S1, S2, questionable S3. No murmurs. No cyanosis or clubbing. No ascites. Pulses: Dorsalis pedis and posterior tibial pulses +1 to +2 bilaterally. ABDOMEN: Soft. Nontender. Bowel sounds active. No CVA tenderness. No mass felt. EXTREMITIES: No edema. Full range of motion of all extremities, equal. NEUROLOGIC: No focal deficit. Cranial nerves II through XII are grossly intact. No headache. No double vision. SKIN: Not dry. Intact. Turgor - normal. LYMPHATIC: No palpable lymph nodes/no lymphedema. MUSCULOSKELETAL: Normal joints with no swelling. Muscle tone is normal. ASSESSMENT: 1. UTI seems to be fully treated now with antibiotics 2. Hydration status somewhat improved. No obvious CHF or fluid retention noted. Ejection fraction is close to 25%. PLAN: 1. The patient is a DNR. . TIME SPENT: More than 35 minutes. Plan and coordination of the patient's care discussed in the presence of nurse. BETI
--- NOTE | 2023-05-16 11:46 | PN ---
DATE OF SERVICE: 05/11/23 SUBJECTIVE: The patient was seen and examined with the Nurse Practitioner. The patient's condition is stable. No CHF symptoms. No fluid overload. His appetite seems to be somewhat better. The patient doesn't have any fever or chills. TIME SPENT: More than 35 minutes. Plan and coordination of the patient's care discussed in the presence of nurse. BETI
--- NOTE | 2023-05-16 13:21 | PN ---
DATE OF SERVICE: 05/12/23 SUBJECTIVE: 82 year old white male hospitalized with UTI, Fever and dehydration. The patient's condition has improved. Restlessness seems to be the problem, treat with Ativan as needed along with possibility of Haldol. Initially he had some problems in the evening times because of I think change of place. He is getting early dementia according to the the patient has been forgetful. REVIEW OF SYSTEMS: CONSTITUTIONAL: No night sweats. No fatigue, malaise, lethargy. No fever or chills. HEENT: Eyes: No visual changes. No eye pain. No eye discharge. ENT: No runny nose. No epistaxis. No sinus pain. No sore throat. No odynophagia. No congestion. RESPIRATORY: No cough, no congestion. No hemoptysis. No shortness of breath. CARDIOVASCULAR: No angina symptoms. No CHF symptoms. No atypical chest pain for CAD. No palpitations. No PND. No orthopnea. GASTROINTESTINAL: No abdominal pain. No nausea or vomiting. No diarrhea or constipation. No hematemesis. No hematochezia. GENITOURINARY: No urgency. No frequency. No dysuria. No hematuria. No obstructive symptoms. No discharge. No pain. No significant abnormal bleeding. MUSCULOSKELETAL: No musculoskeletal pain; no joint swelling. NEUROLOGICAL: No headache. No neck pain. No syncope. No seizures. No dizziness. PSYCHIATRIC: Not anxious. No depression. No suicidal thoughts. No homicidal thoughts. SKIN: No rash. No lesions. No wounds. ENDOCRINE: No unexplained weight loss. No weight gain. HEMATOLOGIC/LYMPHATIC: No anemia. No purpura. No petechiae. No prolonged or excessive bleeding. No palpable lymph nodes. PHYSICAL EXAMINATION: GENERAL: The patient is oriented to time, place and person. VITAL SIGNS: Temperature 96.8, pulse 75, respiratory rate 17, blood pressure 102/80 and pulse ox 92%. HEENT: Head normocephalic, atraumatic. Eyes: Extraocular muscles are intact. Pupils are equal, round and reactive to light and accommodation. Ears: No lesions. Nose appeared normal. Throat: No exudate or erythema. NECK: Supple. No JVD, no carotid bruit. No lymphadenopathy or thyromegaly. LUNGS: Dry crepitation at bases. Clear to auscultation. Percussion note normal. Chest symmetrical. HEART: S1, S2, no S3. No murmurs. No cyanosis or clubbing. No ascites. Pulses: Dorsalis pedis and posterior tibial pulses +1 to +2 bilaterally. ABDOMEN: Soft. Nontender. Bowel sounds active. No CVA tenderness. No mass felt. EXTREMITIES: Trace edema. Full range of motion of all extremities, equal. NEUROLOGIC: No focal deficit. Cranial nerves II through XII are grossly intact. No headache. No double vision. SKIN: Not dry. Intact. Turgor - normal. LYMPHATIC: No palpable lymph nodes/no lymphedema. MUSCULOSKELETAL: Normal joints with no swelling. Muscle tone is normal. LABS: AST and ALT normal. GFR 55cc per hour. Albumin and proteins normal. ASSESSMENT: 1. UTI seems to be resolving clinically. The patient is doing much better. 2. No symptoms of CHF or fluid overload. TIME SPENT: More than 35 minutes. Plan and coordination of the patient's care discussed in the presence of nurse. BETI
--- NOTE | 2023-05-16 13:34 | PN ---
DATE OF SERVICE: 05/13/23 SUBJECTIVE: 82 year old white male hospitalized with UTI, fever and dehydration. The patient's condition seems to be improving. His appetite has improved. No fever or chills. Ativan seems to be helping him at night to calm down. REVIEW OF SYSTEMS: CONSTITUTIONAL: No night sweats. No fatigue, malaise, lethargy. No fever or chills. HEENT: Eyes: No visual changes. No eye pain. No eye discharge. ENT: No runny nose. No epistaxis. No sinus pain. No sore throat. No odynophagia. No congestion. RESPIRATORY: No cough, no congestion. No hemoptysis. No shortness of breath. CARDIOVASCULAR: No angina symptoms. No CHF symptoms. No atypical chest pain for CAD. No palpitations. No PND. No orthopnea. GASTROINTESTINAL: No abdominal pain. No nausea or vomiting. No diarrhea or constipation. No hematemesis. No hematochezia. Appetite has improved. GENITOURINARY: No urgency. No frequency. No dysuria. No hematuria. No obstructive symptoms. No discharge. No pain. No significant abnormal bleeding. MUSCULOSKELETAL: No musculoskeletal pain; no joint swelling. NEUROLOGICAL: No headache. No neck pain. No syncope. No seizures. No dizziness. PSYCHIATRIC: Not anxious. No depression. No suicidal thoughts. No homicidal thoughts. SKIN: No rash. No lesions. No wounds. ENDOCRINE: No unexplained weight loss. No weight gain. HEMATOLOGIC/LYMPHATIC: No anemia. No purpura. No petechiae. No prolonged or excessive bleeding. No palpable lymph nodes. PHYSICAL EXAMINATION: VITAL SIGNS: Temperature 96.8, pulse 74, respiratory rate 18, blood pressure 102/63 and pulse ox 92%. HEENT: Head normocephalic, atraumatic. Eyes: Extraocular muscles are intact. Pupils are equal, round and reactive to light and accommodation. Ears: No lesions. Nose appeared normal. Throat: No exudate or erythema. NECK: Supple. No JVD, no carotid bruit. No lymphadenopathy or thyromegaly. LUNGS:Few dry crepitations at bases. Clear to auscultation. Percussion note normal. Chest symmetrical. HEART: S1, S2, Questionable S3. No murmurs. No cyanosis or clubbing. No ascites. Pulses: Dorsalis pedis and posterior tibial pulses +1 to +2 bilaterally. ABDOMEN: Soft. Nontender. Bowel sounds active. No CVA tenderness. No mass felt. EXTREMITIES: Trace edema. Full range of motion of all extremities, equal. NEUROLOGIC: No focal deficit. Cranial nerves II through XII are grossly intact. No headache. No double vision. SKIN: Not dry. Intact. Turgor - normal. LYMPHATIC: No palpable lymph nodes/no lymphedema. MUSCULOSKELETAL: Normal joints with no swelling. Muscle tone is normal. LABS: GFR 55 cc per hour, hgb 9.9, hct 32, WBC 6,400 normal differential, creatinine 1.2, BUN 16. ASSESSMENT: 1. UTI 2. Fever 3. Dehydration seems to be under control PLAN: 1. Continue the same antibiotics, same treatment. 2. Advised to drink a lot of fluids and eat. 3. Case discussed with the family. The patient need physical therapy, not been able to walk ever since he has been in the hospital. The patient prior to that at home was up and about. Swing bed needs to be considered. TIME SPENT: More than 35 minutes. Plan and coordination of the patient's care discussed in the presence of nurse. BETI
--- NOTE | 2023-05-16 13:52 | PN ---
DATE OF SERVICE: 05/14/23 SUBJECTIVE: 82 year old white male hospitalized with UTI, fever and dehydration. The patient's condition seems to be improving. is present in the room. The patient is oriented to time, place and person. REVIEW OF SYSTEMS: CONSTITUTIONAL: No night sweats. No fatigue, malaise, lethargy. No fever or chills. HEENT: Eyes: No visual changes. No eye pain. No eye discharge. ENT: No runny nose. No epistaxis. No sinus pain. No sore throat. No odynophagia. No congestion. RESPIRATORY: No cough, no congestion. No hemoptysis. No shortness of breath. CARDIOVASCULAR: No angina symptoms. No CHF symptoms. No atypical chest pain for CAD. No palpitations. No PND. No orthopnea. GASTROINTESTINAL: No abdominal pain. No nausea or vomiting. No diarrhea or constipation. No hematemesis. No hematochezia. GENITOURINARY: No urgency. No frequency. No dysuria. No hematuria. No obstructive symptoms. No discharge. No pain. No significant abnormal bleeding. MUSCULOSKELETAL: No musculoskeletal pain; no joint swelling. NEUROLOGICAL: No headache. No neck pain. No syncope. No seizures. No dizziness. PSYCHIATRIC: Not anxious. No depression. No suicidal thoughts. No homicidal thoughts. SKIN: No rash. No lesions. No wounds. ENDOCRINE: No unexplained weight loss. No weight gain. HEMATOLOGIC/LYMPHATIC: No anemia. No purpura. No petechiae. No prolonged or excessive bleeding. No palpable lymph nodes. PHYSICAL EXAMINATION: VITAL SIGNS: Temperature 97.9, pulse 77, respiratory rate 18, blood pressure 96/64 and pulse ox 97% on 2 liters. HEENT: Head normocephalic, atraumatic. Eyes: Extraocular muscles are intact. Pupils are equal, round and reactive to light and accommodation. Ears: No lesions. Nose appeared normal. Throat: No exudate or erythema. NECK: Supple. No JVD, no carotid bruit. No lymphadenopathy or thyromegaly. LUNGS: Dry crepitations as bases. Clear to auscultation. Percussion note normal. Chest symmetrical. HEART: S1, S2, Questionable S3. No murmurs. No cyanosis or clubbing. No ascites. Pulses: Dorsalis pedis and posterior tibial pulses +1 to +2 bilaterally. ABDOMEN: Soft. Nontender. Bowel sounds active. No CVA tenderness. No mass felt. EXTREMITIES: No edema. Full range of motion of all extremities, equal. NEUROLOGIC: No focal deficit. Cranial nerves II through XII are grossly intact. No headache. No double vision. SKIN: Not dry. Intact. Turgor - normal. LYMPHATIC: No palpable lymph nodes/no lymphedema. MUSCULOSKELETAL: Normal joints with no swelling. Muscle tone is normal. LABS: Hgb 9.5, hct 31, WBC 7,200 normal differential, creatinine 1.3, BUN 26, potassium 4 ASSESSMENT: 1. UTI, fever and dehydration seems to be resolving PLAN: 1. The patient is strongly advised to drink a lot of fluids 2. Creatinine and BUN has gone up with GFR of 49, mild drop in it. We will monitor that 3. The patient needs to be doing some physical therapy. 4. The patient will be put in the swing bed. 5. The family advised to bring any food that he may like 6. Will monitor CBC and CMP CONDITION: Stable, improving. TIME SPENT: More than 35 minutes. Plan and coordination of the patient's care discussed in the presence of nurse. BETI
[2023-05-16] MEDS: FLOMAX PO SCH (17:07)
[2023-05-16] MEDS: ULTRAM PO PRN (18:26)
[2023-05-16] MEDS: TYLENOL PO PRN (20:26)
[2023-05-16] MEDS: ENTRESTO 24 MG-26 MG TABLET PO SCH (20:28)
[2023-05-16] MEDS: ATIVAN PO SCH (20:30)
[2023-05-17 05:06] LABS: BASOPHILS % (AUTO) 0.4 % (0.0-3.0); EOSINOPHILS # (AUTO) 0.3 K/ul (0.0-0.7); EOSINOPHILS % (AUTO) 3.8 % (0.0-7.0); HEMATOCRIT 31.2 % (42.0-52.0); HEMOGLOBIN 9.6 g/dl (14.0-18.0); IMMATURE GRANULOCYTE # (AUTO) 0.1 (0.0-1.0); LYMPHOCYTES # (AUTO) 0.6 K/uL (0.60-3.4); LYMPHOCYTES % (AUTO) 8.1 (10.0-50.0); MEAN CORPUSCULAR HEMOGLOBIN 27.6 pg (27.0-31.0); MEAN CORPUSCULAR HGB CONC 30.8 (31.8-35.4); MEAN CORPUSCULAR VOLUME 89.7 fl (80.0-94.0); MONOCYTES # (AUTO) 0.6 K/uL (0.4-2.0); MONOCYTES % (AUTO) 7.7 (0-10); PLATELET COUNT 206 10^3/uL (140-440); RDW COEFFICIENT OF VARIATION 14.5 % (11.6-14.8); RED BLOOD COUNT 3.48 10^6/ul (4.70-6.10); WHITE BLOOD COUNT 7.65 K/ul (4.2-10.2)
[2023-05-17 05:19] LABS: ALBUMIN 3.46 g/dL (3.5-5.0); ALKALINE PHOSPHATASE 71.1 U/L (56-119); ASPARTATE AMINO TRANSFERASE 38.6 U/L (17-59); BILIRUBIN,TOTAL 0.75 mg/dL (0.2-1.3); CALCIUM 9.03 mg/dL (8.4-10.2); CARBON DIOXIDE 21.5 mmol/L (22-30.0); CHLORIDE 106.2 mmol/L (98-107); CREATININE 1.87 mg/dL (0.60-1.10); GLUCOSE 103.7 mg/dL (74-106); POTASSIUM 3.69 mmol/L (3.5-5.1); SODIUM 134.7 mmol/L (134.5-145); TOTAL PROTEIN 6.5 g/dL (6.3-8.2)
[2023-05-17] MEDS: PROTONIX PO SCH (05:35)
[2023-05-17] MEDS: LASIX TAB PO SCH (05:35)
[2023-05-17] MEDS: MAXIPIME 2 GM/50 ML D5W 2 GM/50 ML BAG IV SCH ×2 (09:10→20:22)
[2023-05-17] MEDS: MEGACE PO SCH ×2 (09:12→20:31)
[2023-05-17] MEDS: MIDODRINE PO SCH ×3 (09:12→20:31)
[2023-05-17] MEDS: MIRAPEX PO SCH ×7 (09:14→20:31)
[2023-05-17] MEDS: VITAMIN D PO SCH (09:15)
[2023-05-17] MEDS: LEXAPRO PO SCH (09:16)
[2023-05-17] MEDS: PROSCAR PO SCH (09:16)
[2023-05-17] MEDS: LIPITOR PO SCH (09:16)
[2023-05-17] MEDS: MULTIVITAMIN TABLET PO SCH (09:17)
[2023-05-17] MEDS: TOPROL XL PO SCH (09:19)
[2023-05-17] MEDS: NYSTOP POWDER TP SCH ×4 (09:21→20:22)
[2023-05-17] MEDS ORDERED: MIRAPEX PO SCH ×2 (13:00)
[2023-05-17] MEDS: SODIUM CHLORIDE 1,000 ML IV SCH (13:48)
[2023-05-17] MEDS: XANAX PO PRN (16:23)
[2023-05-17] MEDS: FLOMAX PO SCH (16:25)
[2023-05-17] MEDS: HALDOL PO PRN (20:31)
[2023-05-17] MEDS: ENTRESTO 24 MG-26 MG TABLET PO SCH (20:31)
[2023-05-17] MEDS: ATIVAN PO SCH (20:31)
[2023-05-18] MEDS: PROTONIX PO SCH (05:52)
[2023-05-18] MEDS: LASIX TAB PO SCH (05:52)
[2023-05-18] MEDS: ULTRAM PO PRN (07:38)
[2023-05-18] MEDS: VITAMIN D PO SCH (09:05)
[2023-05-18] MEDS: MIDODRINE PO SCH ×3 (09:05→20:55)
[2023-05-18] MEDS: MULTIVITAMIN TABLET PO SCH (09:06)
[2023-05-18] MEDS: LEXAPRO PO SCH (09:06)
[2023-05-18] MEDS: TOPROL XL PO SCH (09:06)
[2023-05-18] MEDS: LIPITOR PO SCH (09:08)
[2023-05-18] MEDS: PROSCAR PO SCH (09:08)
[2023-05-18] MEDS: MEGACE PO SCH ×2 (09:10→20:56)
[2023-05-18] MEDS: MIRAPEX PO SCH ×7 (09:10→20:55)
[2023-05-18] MEDS: MAXIPIME 2 GM/50 ML D5W 2 GM/50 ML BAG IV SCH ×2 (09:12→20:55)
[2023-05-18] MEDS: NYSTOP POWDER TP SCH ×4 (09:13→20:56)
[2023-05-18] MEDS: SODIUM CHLORIDE 1,000 ML IV SCH (09:15)
[2023-05-18] MEDS: FLOMAX PO SCH (16:21)
[2023-05-18] MEDS: ATIVAN PO SCH (20:55)
[2023-05-18] MEDS: HALDOL PO PRN (20:56)
[2023-05-18] MEDS: ENTRESTO 24 MG-26 MG TABLET PO SCH (20:58)
[2023-05-19 05:08] LABS: BASOPHILS % (AUTO) 0.4 % (0.0-3.0); EOSINOPHILS # (AUTO) 0.4 K/ul (0.0-0.7); EOSINOPHILS % (AUTO) 4.7 % (0.0-7.0); HEMATOCRIT 31.6 % (42.0-52.0); HEMOGLOBIN 9.7 g/dl (14.0-18.0); IMMATURE GRANULOCYTE # (AUTO) 0.1 (0.0-1.0); IMMATURE GRANULOCYTE % (AUTO) 1.3 % (0.0-5.0); LYMPHOCYTES # (AUTO) 1.3 K/uL (0.60-3.4); LYMPHOCYTES % (AUTO) 16.6 (10.0-50.0); MEAN CORPUSCULAR HEMOGLOBIN 27.6 pg (27.0-31.0); MEAN CORPUSCULAR HGB CONC 30.7 (31.8-35.4); MEAN CORPUSCULAR VOLUME 89.8 fl (80.0-94.0); MONOCYTES # (AUTO) 0.7 K/uL (0.4-2.0); MONOCYTES % (AUTO) 9.3 (0-10); NEUTROPHILS # (AUTO) 5.2 K/ul (2.0-6.9); NEUTROPHILS % (AUTO) 67.7 % (42.2-75.2); PLATELET COUNT 212 10^3/uL (140-440); RDW COEFFICIENT OF VARIATION 14.6 % (11.6-14.8); RED BLOOD COUNT 3.52 10^6/ul (4.70-6.10); WHITE BLOOD COUNT 7.61 K/ul (4.2-10.2)
[2023-05-19 05:21] LABS: ALANINE AMINOTRANSFERASE 32.9 U/L (0-50); ALBUMIN 3.44 g/dL (3.5-5.0); ALKALINE PHOSPHATASE 69.9 U/L (56-119); ASPARTATE AMINO TRANSFERASE 51.3 U/L (17-59); BILIRUBIN,TOTAL 0.71 mg/dL (0.2-1.3); BLOOD UREA NITROGEN 37.3 mg/dL (9-20); CALCIUM 8.85 mg/dL (8.4-10.2); CARBON DIOXIDE 20.8 mmol/L (22-30.0); CHLORIDE 108.1 mmol/L (98-107); CREATININE 1.98 mg/dL (0.60-1.10); GLUCOSE 96.2 mg/dL (74-106); POTASSIUM 4.01 mmol/L (3.5-5.1); SODIUM 135.8 mmol/L (134.5-145); TOTAL PROTEIN 6.41 g/dL (6.3-8.2)
[2023-05-19] MEDS: LASIX TAB PO SCH (05:32)
[2023-05-19] MEDS: PROTONIX PO SCH (05:33)
[2023-05-19] MEDS: SODIUM CHLORIDE 1,000 ML IV SCH (06:01)
[2023-05-19] MEDS: MULTIVITAMIN TABLET PO SCH (09:04)
[2023-05-19] MEDS: PROSCAR PO SCH (09:04)
[2023-05-19] MEDS: TOPROL XL PO SCH (09:05)
[2023-05-19] MEDS: MEGACE PO SCH ×2 (09:06→20:28)
[2023-05-19] MEDS: LIPITOR PO SCH (09:06)
[2023-05-19] MEDS: LEXAPRO PO SCH (09:06)
[2023-05-19] MEDS: VITAMIN D PO SCH (09:06)
[2023-05-19] MEDS: MIDODRINE PO SCH ×3 (09:06→20:26)
[2023-05-19] MEDS: MIRAPEX PO SCH ×7 (09:08→20:27)
[2023-05-19] MEDS: NYSTOP POWDER TP SCH ×4 (09:09→21:46)
[2023-05-19] MEDS: MAXIPIME 2 GM/50 ML D5W 2 GM/50 ML BAG IV SCH ×2 (09:10→20:28)
[2023-05-19] MEDS: FLOMAX PO SCH (16:48)
[2023-05-19] MEDS: ENTRESTO 24 MG-26 MG TABLET PO SCH (20:26)
[2023-05-19] MEDS: ATIVAN PO SCH (20:26)
[2023-05-20] MEDS: SODIUM CHLORIDE 1,000 ML IV SCH ×2 (00:13→21:03)
[2023-05-20 04:57] LABS: BASOPHILS # (AUTO) 0.1 K/uL (0-0.2); BASOPHILS % (AUTO) 0.5 % (0.0-3.0); EOSINOPHILS % (AUTO) 0.4 % (0.0-7.0); HEMATOCRIT 31.6 % (42.0-52.0); IMMATURE GRANULOCYTE # (AUTO) 0.1 (0.0-1.0); IMMATURE GRANULOCYTE % (AUTO) 0.9 % (0.0-5.0); LYMPHOCYTES % (AUTO) 8.9 (10.0-50.0); MEAN CORPUSCULAR HEMOGLOBIN 27.9 pg (27.0-31.0); MEAN CORPUSCULAR HGB CONC 31.6 (31.8-35.4); MEAN CORPUSCULAR VOLUME 88.3 fl (80.0-94.0); MONOCYTES # (AUTO) 0.9 K/uL (0.4-2.0); MONOCYTES % (AUTO) 7.8 (0-10); NEUTROPHILS % (AUTO) 81.5 % (42.2-75.2); PLATELET COUNT 221 10^3/uL (140-440); RDW COEFFICIENT OF VARIATION 14.5 % (11.6-14.8); RED BLOOD COUNT 3.58 10^6/ul (4.70-6.10)
[2023-05-20 05:20] LABS: ALANINE AMINOTRANSFERASE 38.3 U/L (0-50); ALBUMIN 3.55 g/dL (3.5-5.0); ALKALINE PHOSPHATASE 78.3 U/L (56-119); ASPARTATE AMINO TRANSFERASE 68.8 U/L (17-59); BILIRUBIN,TOTAL 1.01 mg/dL (0.2-1.3); CALCIUM 9.19 mg/dL (8.4-10.2); CARBON DIOXIDE 17.3 mmol/L (22-30.0); CHLORIDE 111.3 mmol/L (98-107); CREATININE 2.23 mg/dL (0.60-1.10); GLUCOSE 116.2 mg/dL (74-106); POTASSIUM 3.84 mmol/L (3.5-5.1); SODIUM 136.6 mmol/L (134.5-145); TOTAL PROTEIN 6.68 g/dL (6.3-8.2)
[2023-05-20] MEDS: LASIX TAB PO SCH (05:48)
[2023-05-20] MEDS: PROTONIX PO SCH (05:49)
[2023-05-20] MEDS: MAXIPIME 2 GM/50 ML D5W 2 GM/50 ML BAG IV SCH ×2 (10:01→20:45)
[2023-05-20] MEDS: MIDODRINE PO SCH ×3 (10:05→20:44)
[2023-05-20] MEDS: LEXAPRO PO SCH (10:05)
[2023-05-20] MEDS: LIPITOR PO SCH (10:06)
[2023-05-20] MEDS: MULTIVITAMIN TABLET PO SCH (10:06)
[2023-05-20] MEDS: PROSCAR PO SCH (10:06)
[2023-05-20] MEDS: VITAMIN D PO SCH (10:07)
[2023-05-20] MEDS: TOPROL XL PO SCH (10:07)
[2023-05-20] MEDS: MEGACE PO SCH ×2 (10:08→20:45)
[2023-05-20] MEDS: MIRAPEX PO SCH ×7 (10:13→20:45)
[2023-05-20] MEDS: NYSTOP POWDER TP SCH ×4 (10:26→21:45)
[2023-05-20] MEDS: FLOMAX PO SCH (16:43)
[2023-05-20] MEDS: ENTRESTO 24 MG-26 MG TABLET PO SCH (20:44)
[2023-05-20] MEDS: ATIVAN PO SCH (20:44)
[2023-05-21 04:47] LABS: BASOPHILS % (AUTO) 0.4 % (0.0-3.0); EOSINOPHILS # (AUTO) 0.3 K/ul (0.0-0.7); EOSINOPHILS % (AUTO) 3.2 % (0.0-7.0); HEMATOCRIT 29.5 % (42.0-52.0); HEMOGLOBIN 9.1 g/dl (14.0-18.0); IMMATURE GRANULOCYTE # (AUTO) 0.1 (0.0-1.0); IMMATURE GRANULOCYTE % (AUTO) 0.7 % (0.0-5.0); LYMPHOCYTES # (AUTO) 1.1 K/uL (0.60-3.4); LYMPHOCYTES % (AUTO) 10.9 (10.0-50.0); MEAN CORPUSCULAR HEMOGLOBIN 27.7 pg (27.0-31.0); MEAN CORPUSCULAR HGB CONC 30.8 (31.8-35.4); MEAN CORPUSCULAR VOLUME 89.9 fl (80.0-94.0); MONOCYTES # (AUTO) 0.9 K/uL (0.4-2.0); MONOCYTES % (AUTO) 8.5 (0-10); NEUTROPHILS # (AUTO) 7.8 K/ul (2.0-6.9); NEUTROPHILS % (AUTO) 76.3 % (42.2-75.2); PLATELET COUNT 198 10^3/uL (140-440); RDW COEFFICIENT OF VARIATION 14.7 % (11.6-14.8); RED BLOOD COUNT 3.28 10^6/ul (4.70-6.10); WHITE BLOOD COUNT 10.21 K/ul (4.2-10.2)
[2023-05-21 05:02] LABS: ALANINE AMINOTRANSFERASE 38.3 U/L (0-50); ALBUMIN 3.33 g/dL (3.5-5.0); ALKALINE PHOSPHATASE 64.1 U/L (56-119); ASPARTATE AMINO TRANSFERASE 64.9 U/L (17-59); BILIRUBIN,TOTAL 0.86 mg/dL (0.2-1.3); BLOOD UREA NITROGEN 40.1 mg/dL (9-20); CALCIUM 8.88 mg/dL (8.4-10.2); CARBON DIOXIDE 18.5 mmol/L (22-30.0); CHLORIDE 112.3 mmol/L (98-107); CREATININE 2.28 mg/dL (0.60-1.10); GLUCOSE 102.5 mg/dL (74-106); POTASSIUM 3.8 mmol/L (3.5-5.1); SODIUM 137.7 mmol/L (134.5-145); TOTAL PROTEIN 6.25 g/dL (6.3-8.2)
[2023-05-21] MEDS: LASIX TAB PO SCH (05:33)
[2023-05-21] MEDS: PROTONIX PO SCH (05:33)
[2023-05-21] MEDS: NYSTOP POWDER TP SCH ×4 (08:48→21:05)
[2023-05-21] MEDS: LIPITOR PO SCH (08:48)
[2023-05-21] MEDS: TOPROL XL PO SCH (08:49)
[2023-05-21] MEDS: PROSCAR PO SCH (08:49)
[2023-05-21] MEDS: MIDODRINE PO SCH ×3 (08:49→20:05)
[2023-05-21] MEDS: MULTIVITAMIN TABLET PO SCH (08:50)
[2023-05-21] MEDS: LEXAPRO PO SCH (08:50)
[2023-05-21] MEDS: MEGACE PO SCH ×2 (08:50→20:05)
[2023-05-21] MEDS: VITAMIN D PO SCH (08:50)
[2023-05-21] MEDS: MIRAPEX PO SCH ×7 (08:52→20:04)
[2023-05-21] MEDS: MAXIPIME 2 GM/50 ML D5W 2 GM/50 ML BAG IV SCH ×2 (08:54→20:04)
[2023-05-21] MEDS: FLOMAX PO SCH (17:08)
[2023-05-21] MEDS: SODIUM CHLORIDE 1,000 ML IV SCH (18:06)
[2023-05-21] MEDS: ENTRESTO 24 MG-26 MG TABLET PO SCH (20:04)
[2023-05-21] MEDS: ATIVAN PO SCH (20:05)
[2023-05-22] MEDS: LASIX TAB PO SCH (05:30)
[2023-05-22] MEDS: PROTONIX PO SCH (05:30)
[2023-05-22 05:31] LABS: BASOPHILS % (AUTO) 0.4 % (0.0-3.0); EOSINOPHILS # (AUTO) 0.2 K/ul (0.0-0.7); EOSINOPHILS % (AUTO) 1.8 % (0.0-7.0); HEMATOCRIT 30.1 % (42.0-52.0); HEMOGLOBIN 9.5 g/dl (14.0-18.0); IMMATURE GRANULOCYTE # (AUTO) 0.1 (0.0-1.0); IMMATURE GRANULOCYTE % (AUTO) 0.6 % (0.0-5.0); LYMPHOCYTES # (AUTO) 1.1 K/uL (0.60-3.4); LYMPHOCYTES % (AUTO) 9.9 (10.0-50.0); MEAN CORPUSCULAR HEMOGLOBIN 28.1 pg (27.0-31.0); MEAN CORPUSCULAR HGB CONC 31.6 (31.8-35.4); MEAN CORPUSCULAR VOLUME 89.1 fl (80.0-94.0); MONOCYTES # (AUTO) 0.8 K/uL (0.4-2.0); MONOCYTES % (AUTO) 7.4 (0-10); NEUTROPHILS # (AUTO) 8.7 K/ul (2.0-6.9); NEUTROPHILS % (AUTO) 79.9 % (42.2-75.2); PLATELET COUNT 213 10^3/uL (140-440); RDW COEFFICIENT OF VARIATION 14.6 % (11.6-14.8); RED BLOOD COUNT 3.38 10^6/ul (4.70-6.10); WHITE BLOOD COUNT 10.85 K/ul (4.2-10.2)
[2023-05-22 05:57] LABS: ALANINE AMINOTRANSFERASE 41.2 U/L (0-50); ALBUMIN 3.42 g/dL (3.5-5.0); ASPARTATE AMINO TRANSFERASE 59.6 U/L (17-59); BILIRUBIN,TOTAL 0.92 mg/dL (0.2-1.3); BLOOD UREA NITROGEN 42.9 mg/dL (9-20); CALCIUM 8.96 mg/dL (8.4-10.2); CARBON DIOXIDE 16.5 mmol/L (22-30.0); CHLORIDE 113.4 mmol/L (98-107); CREATININE 2.44 mg/dL (0.60-1.10); GLUCOSE 101.5 mg/dL (74-106); POTASSIUM 3.74 mmol/L (3.5-5.1); TOTAL PROTEIN 6.5 g/dL (6.3-8.2)
[2023-05-22] MEDS: ULTRAM PO PRN (06:13)
[2023-05-22] MEDS: MIDODRINE PO SCH ×3 (08:39→20:14)
[2023-05-22] MEDS: LIPITOR PO SCH (08:40)
[2023-05-22] MEDS: PROSCAR PO SCH (08:40)
[2023-05-22] MEDS: MEGACE PO SCH ×2 (08:40→20:14)
[2023-05-22] MEDS: TOPROL XL PO SCH (08:41)
[2023-05-22] MEDS: LEXAPRO PO SCH (08:41)
[2023-05-22] MEDS: MULTIVITAMIN TABLET PO SCH (08:41)
[2023-05-22] MEDS: VITAMIN D PO SCH (08:41)
[2023-05-22] MEDS: MAXIPIME 2 GM/50 ML D5W 2 GM/50 ML BAG IV SCH ×2 (08:46→20:14)
[2023-05-22] MEDS: MIRAPEX PO SCH ×7 (08:55→20:14)
[2023-05-22] MEDS: NYSTOP POWDER TP SCH ×4 (08:55→20:15)
--- NOTE | 2023-05-22 09:08 | PCM.PROG ---
Attending Provider: ATTENDING PROVIDER: Dr. MARYLOU CALLAHAN MD This patient is seen with Huong Escobar, Nurse Practitioner. DATE OF SERVICE: 05/22/23 SUBJECTIVE: This 82 year old /WHITE M was hospitalized 05/09/23. The patient's renal function steadily has declined despite IV fluids. We will hold Lasix for tomorrow. Discussed with referral to Hospice. She would like to speak with children and . She demonstrates understanding regarding prognosis. REVIEW OF SYSTEMS: CONSTITUTIONAL: No night sweats. No fatigue, malaise, lethargy. No fever or chil ls. Weakness. HEENT: Eyes: No visual changes. No eye pain. No eye discharge. ENT: No runny nose. No epistaxis. No sinus pain. No odynophagia. No congestion. RESPIRATORY: No cough, no congestion. No hemoptysis. No shortness of breath. CARDIOVASCULAR: No angina symptoms. No CHF symptoms. No atypical chest pain for CAD. No palpitations. No orthopnea.. GASTROINTESTINAL: No abdominal pain. No nausea or vomiting. No diarrhea or constipation. No hematemesis. No hematochezia. Loss of appetite. GENITOURINARY: No urgency. No frequency. No dysuria. No hematuria. No obstructive symptoms. No discharge. No pain. No significant abnormal bleeding. MUSCULOSKELETAL: No musculoskeletal pain; no joint swelling. NEUROLOGICAL: Awake, alert, intermittent confusion. No headache. No neck pain. No syncope. No seizures. No dizziness. Tremors. Failure to thrive. PSYCHIATRIC: Not anxious. No depression. No suicidal thoughts. No homicidal thoughts. SKIN: No rash. No lesions. No wounds. ENDOCRINE: No unexplained weight loss. No weight gain. HEMATOLOGIC/LYMPHATIC: No anemia. No purpura. No petechiae. No prolonged or excessive bleeding. No palpable lymph nodes. PHYSICAL EXAMINATION: GENERAL: The patient is awake, alert and oriented to person, lying in bed in no distress. VITAL SIGNS: Temperature 97.1 F, Pulse 91, Respiratory Rate 18, BP 128/54, Pulse Ox 94% HEENT: Head normocephalic, atraumatic. Eyes: Extraocular muscles are intact. Pupils are equal, round and reactive to light and accommodation. Ears: No lesions. Nose appeared normal. Throat: No exudate or erythema. NECK: Supple. No JVD, no carotid bruit. No lymphadenopathy or thyromegaly. LUNGS: Diminished breath sounds. Clear to auscultation. Percussion note normal. Chest symmetrical. HEART: S1, S2, no S3. No murmurs. No cyanosis or clubbing. No ascites. Pulses: Dorsalis pedis and posterior tibial pulses +1 to +2 both sides. ABDOMEN: Soft. Non-tender. Bowel sounds active. No CVA tenderness. No mass felt. EXTREMITIES: Trace leg edema. Full range of motion of all extremities, equal. NEUROLOGIC: No focal deficit. Cranial nerves II through XII are grossly intact. No headache. No double vision. SKIN: Not dry. Intact. Turgor-normal. LYMPHATIC: No palpable lymph nodes/no lymphedema. MUSCULOSKELETAL: Normal joints with no swelling. Muscle tone is normal. LAB REVIEW: 05/22/23 04:57 05/22/23 04:57 05/22/23 04:57: WBC 10.85 H, RBC 3.38 L, Hgb 9.5 L, Hct 30.1 L, MCV 89.1, MCH 28.1, MCHC 31.6 L, RDW Coeff of Ade 14.6, Plt Count 213, Immature Gran % (Auto) 0.6, Neut % (Auto) 79.9 H, Lymph % (Auto) 9.9 L, Woodson % (Auto) 7.4, Eos % (Auto) 1.8, Baso % (Auto) 0.4, Neut # (Auto) 8.7 H, Lymph # (Auto) 1.1, Woodson # (Auto) 0.8, Eos # (Auto) 0.2, Baso # (Auto) 0.0, Immature Gran # (Auto) 0.1, Sodium 140.0, Potassium 3.74, Chloride 113.4 H, Carbon Dioxide 16.5 L, Anion Gap 13.84, BUN 42.9 H, Creatinine 2.44 H, Estimated GFR (MDRD) 25.00, BUN/Creatinine Ratio 17.58, Glucose 101.5, Calcium 8.96, Total Bilirubin 0.92, AST 59.6 H, ALT 41.2, Alkaline Phosphatase 70.0, Total Protein 6.50, Albumin 3.42 L, Globulin 3.08, Albumin/Globulin Ratio 1.11 ASSESSMENT: Please see below. 1. Failure to thrive 2. Acute renal failure 3. CHF with reduced ejection fraction PLAN: 1. Hold Lasix 2. is going to discuss with family Hospice referral. Plan and coordination of the patient's care discussed in the presence of City Carrier and nurse. SCRIBED BY: Chepe OVALLE scribed while in presence of service performed by Huong Escobar APRN on 05/22/23 ([id number])
[2023-05-22] MEDS: SODIUM CHLORIDE 1,000 ML IV SCH (14:24)
[2023-05-22 14:59] LABS: SARS COV-2 RNA RAPID NAAT NEGATIVE (NEGATIVE)
[2023-05-22] MEDS: FLOMAX PO SCH (16:59)
[2023-05-22] MEDS: ENTRESTO 24 MG-26 MG TABLET PO SCH (20:14)
[2023-05-22] MEDS: ATIVAN PO SCH (20:15)
[2023-05-23 05:37] LABS: BASOPHILS % (AUTO) 0.4 % (0.0-3.0); EOSINOPHILS # (AUTO) 0.4 K/ul (0.0-0.7); EOSINOPHILS % (AUTO) 3.7 % (0.0-7.0); HEMATOCRIT 29.5 % (42.0-52.0); HEMOGLOBIN 8.8 g/dl (14.0-18.0); IMMATURE GRANULOCYTE # (AUTO) 0.1 (0.0-1.0); IMMATURE GRANULOCYTE % (AUTO) 0.5 % (0.0-5.0); LYMPHOCYTES % (AUTO) 8.9 (10.0-50.0); MEAN CORPUSCULAR HEMOGLOBIN 27.2 pg (27.0-31.0); MEAN CORPUSCULAR HGB CONC 29.8 (31.8-35.4); MONOCYTES # (AUTO) 0.8 K/uL (0.4-2.0); NEUTROPHILS # (AUTO) 8.6 K/ul (2.0-6.9); NEUTROPHILS % (AUTO) 79.5 % (42.2-75.2); PLATELET COUNT 207 10^3/uL (140-440); RDW COEFFICIENT OF VARIATION 14.7 % (11.6-14.8); RED BLOOD COUNT 3.24 10^6/ul (4.70-6.10); WHITE BLOOD COUNT 10.84 K/ul (4.2-10.2)
[2023-05-23 05:51] LABS: ALANINE AMINOTRANSFERASE 36.7 U/L (0-50); ALBUMIN 3.19 g/dL (3.5-5.0); ALKALINE PHOSPHATASE 59.7 U/L (56-119); ASPARTATE AMINO TRANSFERASE 49.8 U/L (17-59); BILIRUBIN,TOTAL 0.8 mg/dL (0.2-1.3); BLOOD UREA NITROGEN 47.4 mg/dL (9-20); CALCIUM 8.67 mg/dL (8.4-10.2); CARBON DIOXIDE 17.7 mmol/L (22-30.0); CHLORIDE 114.9 mmol/L (98-107); CREATININE 2.76 mg/dL (0.60-1.10); GLUCOSE 96.3 mg/dL (74-106); POTASSIUM 3.79 mmol/L (3.5-5.1); TOTAL PROTEIN 6.07 g/dL (6.3-8.2)
[2023-05-23] MEDS: PROTONIX PO SCH (05:54)
[2023-05-23 06:21] VITALS: BP 103/64; PULSE 78; RESP 16; TEMP 98.3
--- NOTE | 2023-05-23 08:49 | PCM.PROG ---
Attending Provider: ATTENDING PROVIDER: Dr. MARYLOU CALLAHAN MD This patient is seen with Huong Escobar, Nurse Practitioner. DATE OF SERVICE: 05/23/23 SUBJECTIVE: This 82 year old /WHITE M was hospitalized 05/09/23. 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 Family has agreed for Hospice referral. [facility] has been contacted. Plan is to be discharged to [place] today pending Hospice meeting them there. Labs have worsened. No longer wanting to take medications. REVIEW OF SYSTEMS: CONSTITUTIONAL: No night sweats. No fatigue, malaise, lethargy. No fever or chills. Weakness. HEENT: Eyes: No visual changes. No eye pain. No eye discharge. ENT: No runny n ose. No epistaxis. No sinus pain. No odynophagia. No congestion. RESPIRATORY: No cough, no congestion. No hemoptysis. No shortness of breath. CARDIOVASCULAR: No angina symptoms. No CHF symptoms. No atypical chest pain for CAD. No palpitations. No orthopnea.. GASTROINTESTINAL: No abdominal pain. No nausea or vomiting. No diarrhea or constipation. No hematemesis. No hematochezia. Loss of appetite. GENITOURINARY: No urgency. No frequency. No dysuria. No hematuria. No obstructive symptoms. No discharge. No pain. No significant abnormal bleeding. MUSCULOSKELETAL: No musculoskeletal pain; no joint swelling. NEUROLOGICAL: Awake, alert, confusion. No headache. No neck pain. No syncope. No seizures. No dizziness. PSYCHIATRIC: Not anxious. No depression. No suicidal thoughts. No homicidal thoughts. SKIN: No rash. No lesions. No wounds. ENDOCRINE: No unexplained weight loss. No weight gain. HEMATOLOGIC/LYMPHATIC: No anemia. No purpura. No petechiae. No prolonged or excessive bleeding. No palpable lymph nodes. PHYSICAL EXAMINATION: GENERAL: The patient is awake, alert and not oriented, lying in bed in no distress. VITAL SIGNS: Temperature 98.3 F, Pulse 78, Respiratory Rate 16, BP 103/64, Pulse Ox 95% HEENT: Head normocephalic, atraumatic. Eyes: Extraocular muscles are intact. Pupils are equal, round and reactive to light and accommodation. Ears: No le sions. Nose appeared normal. Throat: No exudate or erythema. NECK: Supple. No JVD, no carotid bruit. No lymphadenopathy or thyromegaly. LUNGS: Diminished breath sounds. Clear to auscultation. Percussion note normal. Chest symmetrical. HEART: Irregular heart rate. S1, S2, no S3. No murmurs. No cyanosis or clubbing. No ascites. Pulses: Dorsalis pedis and posterior tibial pulses +1 to +2 both sides. ABDOMEN: Soft. Non-tender. Bowel sounds active. No CVA tenderness. No mass felt. EXTREMITIES: Trace leg edema. Full range of motion of all extremities, equal. NEUROLOGIC: No focal deficit. Cranial nerves II through XII are grossly intact. No headache. No double vision. SKIN: Not dry. Intact. Turgor-normal. LYMPHATIC: No palpable lymph nodes/no lymphedema. MUSCULOSKELETAL: Normal joints with no swelling. Muscle tone is normal. LAB REVIEW: 05/23/23 05:04 05/23/23 05:04 05/23/23 05:04: WBC 10.84 H, RBC 3.24 L, Hgb 8.8 L, Hct 29.5 L, MCV 91.0, MCH 27.2, MCHC 29.8 L, RDW Coeff of Ade 14.7, Plt Count 207, Immature Gran % (Auto) 0.5, Neut % (Auto) 79.5 H, Lymph % (Auto) 8.9 L, [place] % (Auto) 7.0, Eos % (Auto) 3.7, Baso % (Auto) 0.4, Neut # (Auto) 8.6 H, Lymph # (Auto) 1.0, [place] # (Auto) 0 .8, Eos # (Auto) 0.4, Baso # (Auto) 0.0, Immature Gran # (Auto) 0.1, Sodium 142.0, Potassium 3.79, Chloride 114.9 H, Carbon Dioxide 17.7 L, Anion Gap 13.19, BUN 47.4 H, Creatinine 2.76 H, Estimated GFR (MDRD) 22.00, BUN/Creatinine Ratio 17.17, Glucose 96.3, Calcium 8.67, Total Bilirubin 0.80, AST 49.8, ALT 36.7, Alkaline Phosphatase 59.7, Total Protein 6.07 L, Albumin 3.19 L, Globulin 2.88, Albumin/Globulin Ratio 1.10 05/22/23 14:00: SARS CoV-2 RNA Rapid PEDRO Negative ASSESSMENT: Please see below. 1. Advanced progression of Parkinson's disease 2. Failure to thrive 3. Acute renal failure 4. Atrial fibrillation 5. Anemia 6. Hypotension PLAN: 1. Discharge pending today depending on Hospice. 2. Plan is to discharge to [place] on Hospice, family is in agreement. Plan and coordination of the patient's care discussed in the presence of Storm Door Maker and nurse. SCRIBED BY: Chepe OVALEL scribed while in presence of service performed by Huong Escobar APRN on 05/23/23 ([id number])
[2023-05-23] MEDS: MEGACE PO SCH (08:59)
[2023-05-23] MEDS: TOPROL XL PO SCH (09:00)
[2023-05-23] MEDS: MULTIVITAMIN TABLET PO SCH (09:00)
[2023-05-23] MEDS: PROSCAR PO SCH (09:00)
[2023-05-23] MEDS: LEXAPRO PO SCH (09:00)
[2023-05-23] MEDS: VITAMIN D PO SCH (09:02)
[2023-05-23] MEDS: LIPITOR PO SCH (09:02)
[2023-05-23] MEDS: MIDODRINE PO SCH (09:03)
[2023-05-23] MEDS: MAXIPIME 2 GM/50 ML D5W 2 GM/50 ML BAG IV SCH (09:04)
--- NOTE | 2023-05-23 09:04 | PN ---
DATE OF SERVICE: 05/15/23 SUBJECTIVE: The patient was seen and examined with the Nurse Practitioner. The patient's condition seems to be improving. He is to be considered for swing bed. Family is agreeable. TIME SPENT: More than 35 minutes. Plan and coordination of the patient's care discussed in the presence of nurse. BETI
[2023-05-23] MEDS: NYSTOP POWDER TP SCH (09:08)
[2023-05-23] MEDS: MIRAPEX PO SCH ×2 (09:10→09:11)
--- NOTE | 2023-05-23 09:12 | PN ---
DATE OF SERVICE: 05/16/23 SUBJECTIVE: 82 year old white male hospitalized with UTI, dehydration, fever. The patient's condition has improved, UTI seems to have resolved. The patient's problem is that he had sinus tachycardia, SVT at night off and on. He is in irregular rhythm with pacemaker, rate of 73 per minute. Systolic blood pressure 120. He seems to be somewhat on the dry side because he was given a couple of doses of Lasix at night. The patient's is present in the room. REVIEW OF SYSTEMS: CONSTITUTIONAL: No night sweats. No fatigue, malaise, lethargy. No fever or chills. HEENT: Eyes: No visual changes. No eye pain. No eye discharge. ENT: No runny nose. No epistaxis. No sinus pain. No sore throat. No odynophagia. No congestion. RESPIRATORY: No cough, no congestion. No hemoptysis. No shortness of breath. CARDIOVASCULAR: No angina symptoms. No CHF symptoms. No atypical chest pain for CAD. No palpitations. No PND. No orthopnea. GASTROINTESTINAL: No abdominal pain. No nausea or vomiting. No diarrhea or constipation. No hematemesis. No hematochezia. GENITOURINARY: No urgency. No frequency. No dysuria. No hematuria. No obstructive symptoms. No discharge. No pain. No significant abnormal bleeding. MUSCULOSKELETAL: No musculoskeletal pain; no joint swelling. NEUROLOGICAL: No headache. No neck pain. No syncope. No seizures. No dizziness. PSYCHIATRIC: Not anxious. No depression. No suicidal thoughts. No homicidal thoughts. SKIN: No rash. No lesions. No wounds. ENDOCRINE: No unexplained weight loss. No weight gain. HEMATOLOGIC/LYMPHATIC: No anemia. No purpura. No petechiae. No prolonged or excessive bleeding. No palpable lymph nodes. PHYSICAL EXAMINATION: GENERAL: The patient is oriented to time, place and person. VITAL SIGNS: Temperature 98.4, pulse 80, respiratory rate 15, blood pressure 124/60, oxygen saturation 96% on room air. HEENT: Head normocephalic, atraumatic. Eyes: Extraocular muscles are intact. Pupils are equal, round and reactive to light and accommodation. Ears: No lesions. Nose appeared normal. Throat: No exudate or erythema. NECK: Supple. No JVD, no carotid bruit. No lymphadenopathy or thyromegaly. LUNGS: Decreased breath sounds. Dry crepitation at bases. Clear to auscultation. Percussion note normal. Chest symmetrical. HEART: S1, S2, no S3. No murmurs. No cyanosis or clubbing. No ascites. Pulses: Dorsalis pedis and posterior tibial pulses +1 to +2 bilaterally. ABDOMEN: Soft. Nontender. Bowel sounds active. No CVA tenderness. No mass felt. EXTREMITIES: No edema. Full range of motion of all extremities, equal. NEUROLOGIC: No focal deficit. Cranial nerves II through XII are grossly intact. No headache. No double vision. SKIN: Not dry. Intact. Turgor - normal. LYMPHATIC: No palpable lymph nodes/no lymphedema. MUSCULOSKELETAL: Normal joints with no swelling. Muscle tone is normal. ASSESSMENT: 1. UTI seems to have resolved 2. Cardiomyopathy 3. CHF 4. Cardiac dysrhythmias PLAN: 1. Continue the same treatment 2. Continue antibiotics 3. The patient is to be admitted to [facility] likely tomorrow 4. We will continue to monitor kidney functions. CONDITION: Stable. TIME SPENT: More than 35 minutes. Plan and coordination of the patient's care discussed in the presence of nurse. BETI
--- NOTE | 2023-05-23 11:18 | PN ---
DATE OF SERVICE: 05/17/23 SUBJECTIVE: 82 year old white male hospitalized with UTI, fever and dehydration. The patient's condition has improved. The patient's present problem is that his creatinine has gone up to 1.8, BUN 37, blood pressure seems to be fluctuating. His appetite seems to have improved. REVIEW OF SYSTEMS: CONSTITUTIONAL: No night sweats. No fatigue, malaise, lethargy. No fever or chills. HEENT: Eyes: No visual changes. No eye pain. No eye discharge. ENT: No runny nose. No epistaxis. No sinus pain. No sore throat. No odynophagia. No congestion. RESPIRATORY: No cough, no congestion. No hemoptysis. No shortness of breath. CARDIOVASCULAR: No angina symptoms. No CHF symptoms. No atypical chest pain for CAD. No palpitations. No PND. No orthopnea. GASTROINTESTINAL: Eating better. No abdominal pain. No nausea or vomiting. No diarrhea or constipation. No hematemesis. No hematochezia. GENITOURINARY: No urgency. No frequency. No dysuria. No hematuria. No obstructive symptoms. No discharge. No pain. No significant abnormal bleeding. MUSCULOSKELETAL: No musculoskeletal pain; no joint swelling. NEUROLOGICAL: No headache. No neck pain. No syncope. No seizures. No dizziness. PSYCHIATRIC: Not anxious. No depression. No suicidal thoughts. No homicidal thoughts. SKIN: No rash. No lesions. No wounds. ENDOCRINE: No unexplained weight loss. No weight gain. HEMATOLOGIC/LYMPHATIC: No anemia. No purpura. No petechiae. No prolonged or excessive bleeding. No palpable lymph nodes. PHYSICAL EXAMINATION: VITAL SIGNS: Temperature 96.3, pulse 80, respiratory rate 14, blood pressure 82/52 and pulse ox 95% on room air. HEENT: Head normocephalic, atraumatic. Eyes: Extraocular muscles are intact. Pupils are equal, round and reactive to light and accommodation. Ears: No lesions. Nose appeared normal. Throat: No exudate or erythema. NECK: Supple. No JVD, no carotid bruit. No lymphadenopathy or thyromegaly. LUNGS: dry crepitation at bases. Clear to auscultation. Percussion note normal. Chest symmetrical. HEART: S1, S2, no S3. No murmurs. No cyanosis or clubbing. No ascites. Pulses: Dorsalis pedis and posterior tibial pulses +1 to +2 bilaterally. ABDOMEN: Soft. Nontender. Bowel sounds active. No CVA tenderness. No mass felt. EXTREMITIES: No edema. Full range of motion of all extremities, equal. NEUROLOGIC: No focal deficit. Cranial nerves II through XII are grossly intact. No headache. No double vision. SKIN: Not dry. Intact. Turgor - normal. LYMPHATIC: No palpable lymph nodes/no lymphedema. MUSCULOSKELETAL: Normal joints with no swelling. Muscle tone is normal. LABS: Hgb 9.6, hgb 31, WBC 7,600 normal differential, creatinine 1.8, BUN 37, potassium 3.6. ASSESSMENT: 1. UTI seems to have resolved 2. Dehydration, clinically absent 3. Cardiomyopathy with poor ejection fraction 4. Pacemaker, defibrillator. PLAN: 1. Give 50cc per hour IV fluids 2. Increase the Medication for Parkinson's to Pramipexole 0.25mg four times a day 3. The patient's mentioned that she has been giving it four times a day at home and was about to let doctor and he had in the past agreed to that. Increase that medication to four times a day. CONDITION: Stable Very likely will swing this patient tomorrow. TIME SPENT: More than 35 minutes. Plan and coordination of the patient's care discussed in the presence of nurse. BETI
[2023-05-23] MEDS: SODIUM CHLORIDE 1,000 ML IV SCH (11:41)
[2023-05-24] MEDS ORDERED: MAXIPIME 2 GM/50 ML D5W 2 GM/50 ML BAG IV ONE (09:00)
--- NOTE | 2023-05-24 11:19 | PN ---
DATE OF SERVICE: 05/18/23 SUBJECTIVE: 82 year old white male hospitalized with UTI, fever, dehydration. The patient's condition seems to have improved initially after his hospitalization but lately last few days it has been deteriorating with deterioration in his kidney function. Overall status has stayed the same. Creatinine 1.8, BUN 37. is present in the room. REVIEW OF SYSTEMS: CONSTITUTIONAL: No night sweats. Somewhat sleepy. No fever or chills. HEENT: Eyes: No visual changes. No eye pain. No eye discharge. ENT: No runny nose. No epistaxis. No sinus pain. No sore throat. No odynophagia. No congestion. RESPIRATORY: No cough, no congestion. No hemoptysis. No shortness of breath. CARDIOVASCULAR: No angina symptoms. No CHF symptoms. No atypical chest pain for CAD. No palpitations. No PND. No orthopnea. GASTROINTESTINAL: No abdominal pain. No nausea or vomiting. No diarrhea or constipation. No hematemesis. No hematochezia. GENITOURINARY: No urgency. No frequency. No dysuria. No hematuria. No obstructive symptoms. No discharge. No pain. No significant abnormal bleeding. MUSCULOSKELETAL: No musculoskeletal pain; no joint swelling. Weak. NEUROLOGICAL: No headache. No neck pain. No syncope. No seizures. No dizziness. Confused. PSYCHIATRIC: Not anxious. No depression. No suicidal thoughts. No homicidal thoughts. SKIN: No rash. No lesions. No wounds. ENDOCRINE: No unexplained weight loss. No weight gain. HEMATOLOGIC/LYMPHATIC: No anemia. No purpura. No petechiae. No prolonged or excessive bleeding. No palpable lymph nodes. PHYSICAL EXAMINATION: VITAL SIGNS: Temperature 96.3, pulse 100, respiratory rate 18, blood pressure 87/50 and pulse ox 96%. HEENT: Head normocephalic, atraumatic. Eyes: Extraocular muscles are intact. Pupils are equal, round and reactive to light and accommodation. Ears: No lesions. Nose appeared normal. Throat: No exudate or erythema. NECK: Supple. No JVD, no carotid bruit. No lymphadenopathy or thyromegaly. LUNGS: Decreased breath sound with dry crepitations. Clear to auscultation. Percussion note normal. Chest symmetrical. HEART: S1, S2, questionable S3. No murmurs. No cyanosis or clubbing. No ascites. Pulses: Dorsalis pedis and posterior tibial pulses +1 to +2 bilaterally. ABDOMEN: Soft. Nontender. Bowel sounds active. No CVA tenderness. No mass felt. EXTREMITIES: No edema. Full range of motion of all extremities, equal. NEUROLOGIC: No focal deficit. Cranial nerves II through XII are grossly intact. No headache. No double vision. SKIN: Not dry. Intact. Turgor - normal. LYMPHATIC: No palpable lymph nodes/no lymphedema. MUSCULOSKELETAL: Normal joints with no swelling. Muscle tone is normal. LABS: Yesterday creatinine was 1.8, BUN 37. ASSESSMENT: 1. Renal azotemia, deteriorating . PLAN: 1. Give IV fluids 50cc per hour 2. Encourage the patient to eat 3. He is not to undergo physical therapy so swing bed transfer is cancelled. The patient has a bed in the half-way in case the patient's kidney function improves we will transfer him to the half-way where if his conditions improve then he can undergo physical therapy. The family is agreeable. TIME SPENT: More than 35 minutes. Plan and coordination of the patient's care discussed in the presence of nurse. BETI
--- NOTE | 2023-05-24 11:42 | PN ---
DATE OF SERVICE: 05/19/23 SUBJECTIVE: 82 year old white male hospitalized with UTI, fever, dehydration. The patient's antibiotics has been continued. He is afebrile. The patient's condition overall seems be slightly deteriorating with worsening of kidney function, creatinine is 1.9 with BUN 37. REVIEW OF SYSTEMS: CONSTITUTIONAL: No night sweats. No fatigue, malaise, lethargy. No fever or chills. HEENT: Eyes: No visual changes. No eye pain. No eye discharge. ENT: No runny nose. No epistaxis. No sinus pain. No sore throat. No odynophagia. No congestion. RESPIRATORY: No cough, no congestion. No hemoptysis. No shortness of breath. CARDIOVASCULAR: No angina symptoms. No CHF symptoms. No atypical chest pain for CAD. No palpitations. No PND. No orthopnea. GASTROINTESTINAL: No abdominal pain. No nausea or vomiting. No diarrhea or constipation. No hematemesis. No hematochezia. GENITOURINARY: No urgency. No frequency. No dysuria. No hematuria. No obstructive symptoms. No discharge. No pain. No significant abnormal bleeding. MUSCULOSKELETAL: No musculoskeletal pain; no joint swelling. NEUROLOGICAL: No headache. No neck pain. No syncope. No seizures. No dizziness. PSYCHIATRIC: Not anxious. No depression. No suicidal thoughts. No homicidal thoughts. SKIN: No rash. No lesions. No wounds. ENDOCRINE: No unexplained weight loss. No weight gain. HEMATOLOGIC/LYMPHATIC: No anemia. No purpura. No petechiae. No prolonged or excessive bleeding. No palpable lymph nodes. PHYSICAL EXAMINATION: VITAL SIGNS: Temperature 96.1, pulse 66, respiratory rate 16, blood pressure 76/50 and pulse ox 97% HEENT: Head normocephalic, atraumatic. Eyes: Extraocular muscles are intact. Pupils are equal, round and reactive to light and accommodation. Ears: No lesions. Nose appeared normal. Throat: No exudate or erythema. NECK: Supple. No JVD, no carotid bruit. No lymphadenopathy or thyromegaly. LUNGS: Decreased breath sounds but clear to auscultation. Percussion note normal. Chest symmetrical. HEART: S1, S2, no S3. No murmurs. No cyanosis or clubbing. No ascites. Pulses: Dorsalis pedis and posterior tibial pulses +1 to +2 bilaterally. ABDOMEN: Soft. Nontender. Bowel sounds active. No CVA tenderness. No mass felt. EXTREMITIES: No edema. Full range of motion of all extremities, equal. NEUROLOGIC: No focal deficit. Cranial nerves II through XII are grossly intact. No headache. No double vision. SKIN: Not dry. Intact. Turgor - normal. LYMPHATIC: No palpable lymph nodes/no lymphedema. MUSCULOSKELETAL: Normal joints with no swelling. Muscle tone is normal. LABS: Hgb 9.7, hct 31, WBC 7,600 normal differential, creatinine 1.9, BUN 37, potassium 4. ASSESSMENT: 1. UTI seems to be resolving 2. Dehydration worsening with worsening of kidney function PLAN: 1. Continue fluids 2. Continue to encourage the patient to eat. 3. Think much could be done 6 doses PO. The patient is on minimum dose of Entresto. 4. Continue to monitor kidney functions 5. 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 He also has Parkinson's disease, unable to move upper and lower extremity as required. CONDITION: Deteriorating. TIME SPENT: More than 35 minutes. Plan and coordination of the patient's care discussed in the presence of nurse. BETI
--- NOTE | 2023-05-24 13:16 | PN ---
DATE OF SERVICE: 05/20/23 SUBJECTIVE: 82 year old white male hospitalized with UTI, dehydration. The patient's condition initially improved and he was about to go swing bed with physical therapy but somehow the renal functions are deteriorated in spite of slow IV hydration and back up on Lasix. The patient also has confusion which has worsened. He seems to be sleepy. The oral intake is more or less acceptable. is present in the room. The problem is that the patient's Parkinson's has deteriorated to the point where it has affected his mental status and oral intake. Also the fluctuations in the blood pressure. The patient's ejection fraction is 20%. It is very likely that it could have deteriorated. In any case the patient's creatinine today is 2.2 with BUN 37. There is sign of any obvious fluid overload. The patient is DNR. We will do the bladder scan and see if he is retaining of urine or not. The patient's family has been made aware of the fact that the patient is a candidate for Hospice. The doesn't want to think about it at present time. REVIEW OF SYSTEMS: CONSTITUTIONAL: No night sweats. No fatigue, malaise, lethargy. No fever or chills. HEENT: Eyes: No visual changes. No eye pain. No eye discharge. ENT: No runny nose. No epistaxis. No sinus pain. No sore throat. No odynophagia. No congestion. RESPIRATORY: No cough, no congestion. No hemoptysis. No shortness of breath. CARDIOVASCULAR: No angina symptoms. No CHF symptoms. No atypical chest pain for CAD. No palpitations. No PND. No orthopnea. GASTROINTESTINAL: No abdominal pain. No nausea or vomiting. No diarrhea or constipation. No hematemesis. No hematochezia. Oral intake is below par. GENITOURINARY: No urgency. No frequency. No dysuria. No hematuria. No obstructive symptoms. No discharge. No pain. No significant abnormal bleeding. MUSCULOSKELETAL: No musculoskeletal pain; no joint swelling. NEUROLOGICAL: No headache. No neck pain. No syncope. No seizures. No dizziness. PSYCHIATRIC: Not anxious. No depression. No suicidal thoughts. No homicidal thoughts. SKIN: No rash. No lesions. No wounds. ENDOCRINE: No unexplained weight loss. No weight gain. HEMATOLOGIC/LYMPHATIC: No anemia. No purpura. No petechiae. No prolonged or excessive bleeding. No palpable lymph nodes. PHYSICAL EXAMINATION: VITAL SIGNS: Temperature 97.4, pulse 88, respiratory rate 16, blood pressure 98/50 and pulse ox 98%. HEENT: Head normocephalic, atraumatic. Eyes: Extraocular muscles are intact. Pupils are equal, round and reactive to light and accommodation. Ears: No lesions. Nose appeared normal. Throat: No exudate or erythema. NECK: Supple. No JVD, no carotid bruit. No lymphadenopathy or thyromegaly. LUNGS: Dry crepitation. Clear to auscultation. Percussion note normal. Chest symmetrical. HEART: S1, S2, no S3. No murmurs. No cyanosis or clubbing. No ascites. Pulses: Dorsalis pedis and posterior tibial pulses +1 to +2 bilaterally. ABDOMEN: Soft. Nontender. Bowel sounds active. No CVA tenderness. No mass felt. EXTREMITIES: Trace edema. Full range of motion of all extremities, equal. NEUROLOGIC: No focal deficit. Cranial nerves II through XII are grossly intact. No headache. No double vision. SKIN: Not dry. Intact. Turgor - normal. LYMPHATIC: No palpable lymph nodes/no lymphedema. MUSCULOSKELETAL: Normal joints with no swelling. Muscle tone is normal. LABS: Hgb 10, hct 31, WBC 11,000 normal differential, creatine 2.2, BUN 37, potassium 3.8. ASSESSMENT: 1. UTI seems to be under control with antibiotics 2. Renal azotemia now with GFR 27cc per minute. PLAN: 1. Advised to continue slow IV hydration 2. Encourage the patient to eat. 3. Continue to monitor CBC and CMP 4. The patient is DNR. 5. The family especially the wants his cardiac status to be evaluated. I explained to her that the patient is 20%, there is nothing much more worse it can get. TIME SPENT: More than 35 minutes. Plan and coordination of the patient's care discussed in the presence of nurse. BETI
--- NOTE | 2023-05-24 13:26 | PN ---
DATE OF SERVICE: 05/21/23 SUBJECTIVE: The patient in the room has daughter, as usual present. The patient is sitting up and trying to eat lunch, more awake today. According to the the patient is somewhat better than yesterday. Interaction is a little better. REVIEW OF SYSTEMS: CONSTITUTIONAL: No night sweats. No fatigue, malaise, lethargy. No fever or chills. HEENT: Eyes: No visual changes. No eye pain. No eye discharge. ENT: No runny nose. No epistaxis. No sinus pain. No sore throat. No odynophagia. No congestion. RESPIRATORY: No cough, no congestion. No hemoptysis. No shortness of breath. CARDIOVASCULAR: No angina symptoms. No CHF symptoms. No atypical chest pain for CAD. No palpitations. No PND. No orthopnea. GASTROINTESTINAL: No abdominal pain. No nausea or vomiting. No diarrhea or constipation. No hematemesis. No hematochezia. GENITOURINARY: No urgency. No frequency. No dysuria. No hematuria. No obstructive symptoms. No discharge. No pain. No significant abnormal bleeding. MUSCULOSKELETAL: No musculoskeletal pain; no joint swelling. Weak. NEUROLOGICAL: No headache. No neck pain. No syncope. No seizures. No dizziness. Still somewhat confused at times. PSYCHIATRIC: Not anxious. No depression. No suicidal thoughts. No homicidal thoughts. SKIN: No rash. No lesions. No wounds. ENDOCRINE: No unexplained weight loss. No weight gain. HEMATOLOGIC/LYMPHATIC: No anemia. No purpura. No petechiae. No prolonged or excessive bleeding. No palpable lymph nodes. PHYSICAL EXAMINATION: VITAL SIGNS: Temperature 96.8, pulse 80, respiratory rate 16, blood pressure 96/58 and pulse ox 98% on room air. HEENT: Head normocephalic, atraumatic. Eyes: Extraocular muscles are intact. Pupils are equal, round and reactive to light and accommodation. Ears: No lesions. Nose appeared normal. Throat: No exudate or erythema. NECK: Supple. No JVD, no carotid bruit. No lymphadenopathy or thyromegaly. LUNGS: Decreased breath sounds with dry crepitations bilaterally. Clear to auscultation. Percussion note normal. Chest symmetrical. HEART: S1, S2, no S3. No murmurs. No cyanosis or clubbing. No ascites. Pulses: Dorsalis pedis and posterior tibial pulses +1 to +2 bilaterally. ABDOMEN: Soft. Nontender. Bowel sounds active. No CVA tenderness. No mass felt. EXTREMITIES: No edema. Full range of motion of all extremities, equal. NEUROLOGIC: No focal deficit. Cranial nerves II through XII are grossly intact. No headache. No double vision. SKIN: Not dry. Intact. Turgor - normal. LYMPHATIC: No palpable lymph nodes/no lymphedema. MUSCULOSKELETAL: Normal joints with no swelling. Muscle tone is normal. LABS: Hgb 9.1, hct 29, WBC 10,000 normal differential, creatinine 2.2, BUN 40, potassium 3.8 ASSESSMENT: 1. Renal azotemia seems to be stable, still on slow IV fluids because of dilated cardiomyopathy because of very poor ejection fraction. Seems to be stable now hopefully it may turn around by tomorrow. 2. Cardiovascular status seems to be stable. PLAN: 1. The patient is going to be discharged to the assisted where he may undergo physical therapy. The patient's family especially is very much reluctant about Hospice. CONDITION: Stable. TIME SPENT: More than 35 minutes. Plan and coordination of the patient's care discussed in the presence of nurse. BETI
--- NOTE | 2023-05-24 13:29 | PN ---
DATE OF SERVICE: 05/22/23 SUBJECTIVE: The patient was seen and examined today with Nurse Practitioner. The patient' condition is more or less stable but kidney functions have deteriorated. Very likely the patient may go into renal failure. The patient has poor ejection fraction and Parkinson's disease. He is almost bed ridden. Family is agreeable for Hospice especially the . TIME SPENT: More than 35 minutes. Plan and coordination of the patient's care discussed in the presence of nurse. BETI
--- NOTE | 2023-06-06 10:41 | HP ---
DATE OF SERVICE: 05/09/23 REASON FOR HOSPITALIZATION/HISTORY OF PRESENT ILLNESS: Fever, increased confusion and not eating. No signs or symptoms of CHF/CAD/COVID. Decreased urine output. PAST MEDICAL HISTORY/PAST SURGICAL HISTORY: Hypotension Asphasia Postural hypertension with syncope Biventricular ICD/A1CD Parkinson's Dr. 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 HEENT: No sinus drainage, no sore throat. RESPIRATORY: No cough, no congestion. CARDIOVASCULAR: No atypical chest pain for coronary artery disease. No angina, CHF symptoms, palpitations. Shortness of breath as usual . GASTROINTESTINAL: No melena or abdominal pain. No GERD. GENITOURINARY: No hematuria, no prostatism, no polyuria. SPOOL SORTER: No blackout, no dizziness, no headache, no double vision. GAIT: Unable. MUSCULOSKELETAL: No osteoarthritis pain, no joint swelling. ENDOCRINE: No weight loss, no weight gain. SKIN: Not dry, no rash. PSYCHIATRIC: Not anxious, no depression, no suicidal thoughts, no homicidal thoughts. SOCIAL HISTORY: Marital Status: . Tobacco Usage: No. MEDICATIONS: Tamsulosin Entresto Tramadol Multivitamin Vitamin B12 Vitamin D3 Finasteride Escitalopram Midodrine Alprazolam Metoprolol Pantoprazole Atorvastatin Pramipexole Ipratropium-albuterol Bisacodyl Lasix Mirapex ALLERGIES: No known allergies PHYSICAL EXAMINATION: V/S: Pulse 80, blood pressure 124/74, temperature 99.8, pulse ox 95%.. weight 187. GENERAL APPEARANCE: Oriented to person only. Pale. Dry mucous membranes. HEENT: Normal. NECK: No JVP, no bruits. RESPIRATORY: Decreased breath sounds. CARDIOVASCULAR: S1, S2, no S3, no murmur. No cyanosis, clubbing. No ascites. GI/ABDOMEN: No tenderness. Bowel sounds are active. EXTREMITIES: edema, pulses +1, equal. SPOOL SORTER: Deep tendon reflexes, sensory, motor and gait all normal. RECTAL: Dr. Keegan Camilo 02/18/22/PROSTATE: Dr. Conner. ASSESSMENT: 1. UTI 2. Fever 3. Dehydration 4. Hypotension 5. Asphasia 6. Postural hypertension with syncope 7. Biventricular ICD/A1CD 8. Parkinson's Dr. Tobias 9. 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 MCA thrombosis, right, Micheline PLAN: 1. Routine telemetry orders 2. Chest x-ray 3. Urine culture already done 05/08 4. CBC and CMP now and daily 5. BNP 6. Monitor I&O 7. Rocephin 1 gram IV daily 8. Vancomycin IV times two days Pharmacy to dose 9. Normal saline IV at 50cc an hour times one liter 10. Regular diet 11. ABG times one on room air. 12. O2 nasal canula PRN 1-2 liters 13. Continue home medications 14. Blood cultures times two TIME SPENT: More than 75 minutes. MTDD
== END 2023-05-23 11:25 | DRG 690 ==
LOC: MEDSURG B 15:44
PROVIDERS: ADMIT Internal Medicine; ATTEND Internal Medicine